=== PATIENT | male | born 1975 | race Caucasian/White ===

== ENCOUNTER 2017-08-18 11:40 | Emergency (ER) | payer OTHER, SELFPAY ==
[2017-08-18 11:41] VITALS: BP 136/79; PULSE 88; RESP 16; TEMP 36.1; O2SAT 97; BMI 38.4
--- NOTE | 2017-08-18 11:59 | ED.VISSUMM ---
- ER Visit Summary Date of Service: 08/18/17 Chief Complaint: Exposure to trichomonas History of Present Illness: The patient is a 42 M who presents with exposure to trichomonas. This happened about a week ago. He states he had dysuria at that time but now it is gone. He has no history of any STI's. He states he has had some mild penile drainage. No fevers. No pain Physical Examination: Vital signs reviewed. exam reveals no drainage. No pain. No abnormalities are seen Test Results: None indicated Emergency Department Course and Treatment: Patient will be treated with Rocephin, azithromycin, Flagyl and Zofran. We will follow-up as needed Treatment Plan: [] Disposition: Discharge Impression: Exposure to STI This note was generated with [employer] dictation software. It may contain incorrect words, spelling, and punctuation that were not noted in review of the chart prior to signing ED Disposition - Plan for ED Patient: Chief Complaint: Male Pain/Injury Referrals: Care Physician,No Primary [Primary Care Provider] -
--- NOTE | 2017-08-18 12:00 | ED.DEP ---
ED Disposition - Plan for ED Patient: Disposition: Home or Assisted Living Chief Complaint: Male Pain/Injury Instructions: ED STD Male Treated Referrals: Care Physician,No Primary [Primary Care Provider] -
[2017-08-18] MEDS: Ceftriaxone 500 MG Vial 250 MG IM (12:28)
[2017-08-18] MEDS: Azithromycin 250 MG Tablet 1000 MG PO (12:29)
[2017-08-18] MEDS: Ondansetron ODT 4 MG Tablet 8 MG PO (12:29)
[2017-08-18] MEDS: metroNIDAZOLE 500 MG Tablet 2000 MG PO (12:30)
[2017-08-18 12:52] VITALS: BP 158/97; PULSE 68; RESP 18; O2SAT 97
== END 2017-08-18 12:53 | disposition home or self-care (01) ==
LOC: ED 12:15
PROVIDERS: Emergency Provider Emergency Medicine
DX: Z20.2 Contact with and (suspected) exposure to infections with a predominantly sexual mode of transmission (principal)
CPT/HCPCS: 96372; 99283

== ENCOUNTER 2018-05-16 10:55 | Emergency (ER) | payer SELFPAY ==
[2018-05-16 10:56] VITALS: BP 150/97; PULSE 982; RESP 18; TEMP 37.8; O2SAT 96; BMI 34.8
[2018-05-16] MEDS: Ibuprofen 600 MG Tablet PO (11:36)
--- NOTE | 2018-05-16 11:52 | ED.DCSUM_ITS ---
- ER Visit Summary Date of Service: 05/16/18 Chief Complaint: [Fever] History of Present Illness: The patient is a 43 M [presents the emergency department complaint of a fever that started last evening. Patient states that while at work he started to feel hot. Patient states this morning again he was feeling hot and had a headache and cough as well as body aches but. Patient has a minimal sore throat. Cough is nonproductive. He denies any sick contacts. Patient did take some Tylenol last night but none since.] Physical Examination: [HEENT-PERRLA, EOMI. Cranial nerves II through XII grossly intact. TMs clear. Mucous membranes moist. No adenopathy. Cardiovascular-regular rate and rhythm without murmur or ectopy Lungs-clear to auscultation, chest wall stable without crepitus or subcu emphysema Abdomen-normoactive bowel sounds, soft, nontender, no rebound or rigidity, no peritoneal signs. Extremities-intact ?4, normal range of motion, normal pulses, atraumatic] Test Results: [Rapid influenza screen ordered and pending] Emergency Department Course and Treatment: [Patient left prior to treatment completion apparently told the nursing staff that he had somewhere to be and he left the department before treatment completion. Prior to leaving I did explain to to the patient that I felt likely had a viral upper respiratory infection however I did give him the option that if his influenza screen came back positive we would treat him with Tamiflu if he chose the have the treatment.] Treatment Plan: [Patient left prior to treatment completion] Disposition: [Left prior to treatment completion] Impression: [Viral URI] This note was generated with [employer] dictation software. It may contain incorrect words, spelling, and punctuation that were not noted in review of the chart prior to signing ED Disposition - Plan for ED Patient: Chief Complaint: Fever Referrals: Care Physician,No Primary [Primary Care Provider] -
== END 2018-05-16 12:13 | disposition home or self-care (01) ==
PROVIDERS: Emergency Provider Emergency Medicine
DX: J06.9 Acute upper respiratory infection, unspecified (principal)
CPT/HCPCS: 87804; 99283

== ENCOUNTER 2018-05-17 23:34 | Emergency (ER) | payer SELFPAY ==
[2018-05-17 23:35] VITALS: BP 145/84; PULSE 89; RESP 14; TEMP 36.9; O2SAT 98; BMI 36.2
--- NOTE | 2018-05-17 23:59 | ED.VISSUMM ---
- ER Visit Summary Date of Service: 05/17/18 Chief Complaint: Body aches, nausea, vomiting, diarrhea History of Present Illness: The patient is a 43 M with body aches, congestion, nausea, vomiting, diarrhea for the past 3-4 days. He had intermittent fevers. He was seen yesterday and influenza swab was negative. Today he has had increased vomiting is unable to keep even fluids down. Physical Examination: Vital signs are unremarkable. Patient is afebrile. Patient's lying in bed no acute distress. Heart is regular rate and rhythm. Lung sounds are clear. Abdomen is soft with focal tenderness in epigastrium. No guarding or rebound. Hypoactive but present bowel sounds are noted throughout all 4 quadrants. Skin examination was no rash or lesions. Test Results: CBC was a white count of 3.7 with 80% neutrophils. Hemoglobin is concentrated at 16.7. Platelet count is 122,000. Chemistry studies are unremarkable. LFTs significant for total bili of 1.2 and a direct bili 0.52. ALT is 67 and AST is 47. Lipase is normal. Emergency Department Course and Treatment: Patient was given IV fluids, Zofran, Toradol, and Bentyl. On repeat evaluation he feels significantly improved. He is tolerating p.o. He will be given a prescription for Zofran and Bentyl at home. Treatment Plan: [] Disposition: Discharge Impression: Viral gastroenteritis This note was generated with [employer] dictation software. It may contain incorrect words, spelling, and punctuation that were not noted in review of the chart prior to signing ED Disposition - Plan for ED Patient: Chief Complaint: General Illness Referrals: Care Physician,No Primary [Primary Care Provider] -
[2018-05-18] MEDS: 0.9% Normal Saline 1,000 ML 1000 ML IV (00:25)
[2018-05-18] MEDS: Ketorolac 30 MG/ML Syringe IV (00:26)
[2018-05-18] MEDS: Dicyclomine 20 MG/2 ML Vial IM (00:26)
[2018-05-18] MEDS: Ondansetron 4 MG/2 ML Vial IV (00:26)
[2018-05-18 00:35] LABS: Absolute Lymphocyte Count 0.42 X10^3/ul (0.83-4.51); Basophil# 0.01 X10^3/uL; Basophil% 0.3 % (0-1); Hematocrit 45.7 % (40-54); Hemoglobin 16.7 g/dl (13.0-16.5); Lymphocyte # 0.42 X10^3/ul (4.0); Lymphocyte % 11.4 % (19-41); Mean Corp Hgb Conc 36.5 g/gl (32-36); Mean Corpuscular Hgb 32.6 pg (27.0-32.0); Mean Corpuscular Volume 89.1 fL (80-94); Mean Platelet Vol. 9.1 fl (6.2-12.0); Monocyte# 0.29 X10^3/uL; Monocyte% 7.9 % (0-10); Neutrophil # 2.96 X10^3/uL (2.7-7.7); Neutrophil % 80.1 % (47-70); Platelet Count 122 K/mm3 (150-450); RBC Distribution Width CV 11.8 % (11.6-14.6); RBC Distribution Width SD 38.2 fl (35.1-43.9); Red Blood Count 5.13 M/mm3 (4.6-6.2); White Blood Count 3.7 K/mm3 (4.4-11.0)
[2018-05-18 00:36] LABS: Differential Indicated SCAN CRITERIA MET; POSITIVE COUNT NO; POSITIVE DIFFERENTIAL YES; POSITIVE MORPHOLOGY NO
[2018-05-18 00:44] LABS: AST(SGOT) 47 U/L (15-37); Alanine Aminotransfer ALT/SGPT 67 U/L (16-61); Albumin, Serum 3.4 g/dL (3.2-5.0); Alkaline Phosphatase 47 U/L (45-117); Anion Gap 6 (5-15); BUN 10 mg/dL (7-18); BUN/Creat Ratio 9.9 RATIO (10-20); Bilirubin, Direct 0.52 mg/dL (0.00-0.30); Calcium,Total 8.1 mg/dL (8.5-10.1); Chloride 102 mmol/L (98-107); Creatinine, Serum 1.01 mg/dL (0.70-1.30); EST Glomerular Filtration Rate 86 mL/min (>60); Est Glom Filt Rate - Afr Amer 104 mL/min (>60); Estimated Creatinine Clearance 100.44 ml/min; Globulin 3.7 g/dL (2.2-4.2); Glucose 99 mg/dL (74-106); Lipase 205 U/L (73-393); Potassium 3.8 mmol/L (3.5-5.1); Protein, Total 7.1 g/dL (6.4-8.2); Sodium Level 137 mmol/L (136-145)
--- NOTE | 2018-05-18 01:19 | ED.DEP ---
ED Disposition - Plan for ED Patient: Disposition: Home or Assisted Living Chief Complaint: General Illness Instructions: ED Gastroenteritis Viral Prescriptions: Ondansetron [Zofran Odt] 4 mg PO Q8H PRN PRN #10 tablet PRN Reason: Nausea Dicyclomine HCl [Bentyl] 20 mg PO TIDAC #20 capsule Referrals: González,Twyla, DO [NON-STAFF] - As Needed
[2018-05-18] MEDS: Ondansetron ODT 4 MG Tablet PO (01:41)
[2018-05-18 01:50] VITALS: BP 137/81; PULSE 71; RESP 16; O2SAT 94
== END 2018-05-18 01:52 | disposition home or self-care (01) ==
PROVIDERS: Emergency Provider Emergency Medicine
DX: A08.4 Viral intestinal infection, unspecified (principal); Z87.891 Personal history of nicotine dependence
CPT/HCPCS: 80048; 80076; 83690; 85025; 96361; 96372; 96374; 96375; 99284; J7030; J2405

== ENCOUNTER 2018-10-26 05:53 | Emergency (ER) | payer SELFPAY ==
[2018-07-18 11:50] VITALS: BMI 38.4
[2018-10-26 05:56] VITALS: BP 148/106; PULSE 70; RESP 16; TEMP 36.9; O2SAT 97; BMI 36.2
--- NOTE | 2018-10-26 06:12 | ED.VISSUMM ---
- ER Visit Summary Date of Service: 10/26/18 Chief Complaint: Cough History of Present Illness: The patient is a 43 M who presents with an influenza-like illness. He has been sick for 3 days. He complains of sore throat, muscle aches and joint aches, diarrhea, productive cough, chest congestion, sinus pressure. Did have diarrhea although this seems to be improving. No fevers. No vomiting. Physical Examination: Afebrile blood pressure 148/106 vitals otherwise normal No distress Nasal congestion noted Tympanic membranes are clear Oropharynx clear Moist mucous membranes Heart regular rate and rhythm Lungs are clear without rales rhonchi or wheezing Abdomen soft Test Results: Not indicated Emergency Department Course and Treatment: Patient presents with an influenza-like illness. Given that he has already been ill for 2-3 days, does not have any shortness of breath hypoxia or significant respiratory complications and is otherwise healthy Tamiflu is not indicated. Patient advised on supportive care. He understands to return for new or worsening symptoms. Patient discharged. Treatment Plan: [] Disposition: Discharge Impression: Influenza-like illness This note was generated with [employer] dictation software. It may contain incorrect words, spelling, and punctuation that were not noted in review of the chart prior to signing ED Disposition - Plan for ED Patient: Referrals: Care Physician,No Primary [Primary Care Provider] -
--- NOTE | 2018-10-26 06:14 | ED.DEP ---
ED Disposition - Plan for ED Patient: Instructions: ED Flu Referrals: Care Physician,No Primary [Primary Care Provider] -
--- NOTE | 2018-10-26 06:15 | ED.DCSUM_ITS ---
- ER Visit Summary Date of Service: 10/26/18 Chief Complaint: Cough History of Present Illness: The patient is a 43 M who presents with an influenza-like illness. He has been sick for 3 days. He complains of sore throat, muscle aches and joint aches, diarrhea, productive cough, chest congestion, sinus pressure. Did have diarrhea although this seems to be improving. No fevers. No vomiting. Physical Examination: Afebrile blood pressure 148/106 vitals otherwise normal No distress Nasal congestion noted Tympanic membranes are clear Oropharynx clear Moist mucous membranes Heart regular rate and rhythm Lungs are clear without rales rhonchi or wheezing Abdomen soft Test Results: Not indicated Emergency Department Course and Treatment: Patient presents with an influenza- like illness. Given that he has already been ill for 2-3 days, does not have any shortness of breath hypoxia or significant respiratory complications and is otherwise healthy Tamiflu is not indicated. Patient advised on supportive care. He understands to return for new or worsening symptoms. Patient discharged. Treatment Plan: [] Disposition: Discharge Impression: Influenza-like illness This note was generated with [employer] dictation software. It may contain incorrect words, spelling, and punctuation that were not noted in review of the chart prior to signing ED Disposition - Plan for ED Patient: Referrals: Care Physician,No Primary [Primary Care Provider] -
[2018-10-26 06:32] VITALS: RESP 16
== END 2018-10-26 06:36 | disposition home or self-care (01) ==
PROVIDERS: Emergency Provider Emergency Medicine
DX: J11.1 Influenza due to unidentified influenza virus with other respiratory manifestations (principal)
CPT/HCPCS: 99282

== ENCOUNTER 2018-11-14 14:08 | Emergency (ER) | payer OTHER, SELFPAY ==
[2018-11-14 14:09] VITALS: BP 159/106; PULSE 81; RESP 18; TEMP 36.2; O2SAT 97; BMI 37.6
--- NOTE | 2018-11-14 15:12 | ED.VISSUMM ---
- ER Visit Summary Date of Service: 11/14/18 Chief Complaint: Nausea, diarrhea, cough History of Present Illness: The patient is a 43 M who was seen approximately 2 weeks ago with flulike illness. Patient states he was feeling better for 3 or 4 days but his stepdaughter got ill and now patient and his are feeling worse again. He complains of intermittent fever, most recent yesterday. He reports cough that is worse at night and bringing up yellow sputum. He does not feel short of breath. He complains of diarrhea approximately 4 times a day. No blood in the stool. He has had nausea but no vomiting. Physical Examination: Blood pressure is 159/106, otherwise vitals are normal. Patient is sitting in the koenig chair. Head and neck examination reveals moist mucous membranes. Heart is regular rate and rhythm. Lung sounds are clear. Abdomen is soft with no focal tenderness. Active bowel sounds are noted. Test Results: [] Emergency Department Course and Treatment: Patient was given Zofran for nausea. Chest x-ray was initially ordered as the patient has had several weeks of this illness, but I was advised by radiology that he was declining the exam. When I discussed this with him he states he will does not think he needs a chest x-ray. We will treat him with naproxen and Zofran. If his symptoms persist he is to return for chest x-ray. He agrees with this plan. Treatment Plan: [] Disposition: Discharge Impression: Viral syndrome This note was generated with [employer] dictation software. It may contain incorrect words, spelling, and punctuation that were not noted in review of the chart prior to signing ED Disposition - Plan for ED Patient: Disposition: Home or Assisted Living Instructions: ED Viral Syndrome Prescriptions: Ondansetron [Zofran Odt] 4 mg PO Q8H PRN PRN #10 tablet PRN Reason: Nausea Naproxen [Naprosyn] 500 mg PO BID PRN PRN #20 tablet PRN Reason: Pain Referrals: Kathryn Dc MD [STAFF PHYSICIAN] - As Needed
[2018-11-14] MEDS: Ondansetron ODT 4 MG Tablet PO (15:46)
--- NOTE | 2018-11-14 16:16 | ED.RN ---
pt refusing cxr and dr. conde aware. awaiting dc papers with
== END 2018-11-14 16:17 | disposition home or self-care (01) ==
PROVIDERS: Emergency Provider Emergency Medicine
DX: B34.9 Viral infection, unspecified (principal); Z87.891 Personal history of nicotine dependence
CPT/HCPCS: 99281

== ENCOUNTER 2018-12-14 05:25 | Emergency (ER) | payer OTHER, SELFPAY ==
[2018-12-14 05:27] VITALS: BP 182/120; PULSE 75; RESP 18; TEMP 36.7; O2SAT 96; BMI 39.9
[2018-12-14 05:33] VITALS: RESP 18
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
--- NOTE | 2018-12-14 05:34 | ED.VISSUMM ---
- ER Visit Summary Date of Service: 12/14/18 Chief Complaint: Right thumb injury, rectal bleeding History of Present Illness: The patient is a 43 M presents to the emergency department 2 complaints. Patient states that yesterday, he was at work. He is right-hand dominant. He was putting in a garage door. It was rolling up, and he got his thumb pinched. Since then, he had a lot of pain. He is also been having some blood when he moved his bowels. He states is been going on for about 8 months. He states that today, he noticed a lot of bright red blood and states it was more than he is ever had. He denies any fevers or chills. He denies any weight loss. He states that his only been when he has been wiping, but today the blood without wiping. He has no history of inflammatory bowel disease. He has had prior appendectomy. Physical Examination: Vital signs reviewed General: Well-nourished, well-developed Head: Normocephalic, atraumatic Eyes: Pupils equal and reactive, extraocular muscles intact Neck, supple, no lymphadenopathy Heart: Regular rate and rhythm Respiratory: No distress, clear bilaterally Abdomen: Soft, nontender, nondistended, no peritoneal signs Rectal exam: Evidence of recently bleeding hemorrhoid at the 1 o'clock position. External hemorrhoid at the 4 o'clock position. No active blood. No masses. No evidence of abscess or fissure Back: Nontender Extremities: Small subungual hematoma less than 20% on right thumb, flexion extension preserved, no edema, no cords Skin: Normal color no rash Neuro: Alert and oriented, no focal or lateralizing deficits. Test Results: [] Emergency Department Course and Treatment: The patient's abdomen is soft and nontender. He has been having the symptoms for months. His rectal exam is consistent with bleeding hemorrhoids. There is no evidence of abscess or fistula. I did obtain a CBC given the patient's chronicity. This was unremarkable. He does have a small subungual hematoma on the left thumb, but it is less than 20%. I do not feel this needs drained. X-rays were obtained. There is no evidence of acute fracture. The patient will be given outpatient surgical follow-up for his hemorrhoids as needed. He was counseled on stool softeners and reasons to return. He will be discharged home. Treatment Plan: [] Disposition: Discharge Impression: 1. Rectal bleeding secondary to hemorrhoids 2. Right thumb contusion This note was generated with [employer] dictation software. It may contain incorrect words, spelling, and punctuation that were not noted in review of the chart prior to signing ED Disposition - Plan for ED Patient: Instructions: ED Crush Injury Finger No Fx, ED Hemorrhoids Referrals: Care Physician,No Primary [Primary Care Provider] -
[2018-12-14 06:16] LABS: Hematocrit 45.3 % (40-54); Hemoglobin 16.5 g/dl (13.0-16.5); Mean Corp Hgb Conc 36.4 g/gl (32-36); Mean Corpuscular Hgb 31.4 pg (27.0-32.0); Mean Corpuscular Volume 86.3 fL (80-94); Platelet Count 260 K/mm3 (150-450); RBC Distribution Width CV 12.5 % (11.6-14.6); RBC Distribution Width SD 39.3 fl (35.1-43.9); Red Blood Count 5.25 M/mm3 (4.6-6.2); White Blood Count 6.8 K/mm3 (4.4-11.0)
[2018-12-14 06:17] LABS: Scan Indicated on CBC? Y/N NO
[2018-12-14 06:26] VITALS: BP 135/86; RESP 18
== END 2018-12-14 06:27 | disposition home or self-care (01) ==
PROVIDERS: Emergency Provider Emergency Medicine
DX: K64.4 Residual hemorrhoidal skin tags (principal); K62.5 Hemorrhage of anus and rectum; S60.011A Contusion of right thumb without damage to nail, initial encounter; Z72.0 Tobacco use; W23.0XXA Caught, crushed, jammed, or pinched between moving objects, initial encounter; Y93.89 Activity, other specified; Y92.89 Other specified places as the place of occurrence of the external cause; Y99.0 Civilian activity done for income or pay
CPT/HCPCS: 36415; 73130; 85027; 99283

== ENCOUNTER 2019-04-18 08:54 | Emergency (ER) | payer SELFPAY ==
[2019-04-18 08:55] VITALS: BP 179/107; PULSE 86; RESP 18; TEMP 37.1; O2SAT 98; BMI 41.6
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
[2019-04-18] MEDS: Ondansetron 4 MG/2 ML Vial IV (09:27)
[2019-04-18] MEDS: Morphine 4 MG/ML Syringe IV (09:27)
[2019-04-18 09:30] LABS: Absolute Lymphocyte Count 1.74 X10^3/uL (0.83-4.51); Absolute Neutrophil Count 3.6 X10^3/uL (2.0-7.7); Basophil# 0.01 X10^3/uL; Basophil% 0.2 % (0-1); Eosinophil# 0.11 X10^3/uL; Eosinophils% 1.9 % (0-5); Hematocrit 44.6 % (40-54); Hemoglobin 16.1 g/dL (13.0-16.5); Lymphocyte # 1.74 X10^3/ul (4.0); Lymphocyte % 29.3 % (19-41); Mean Corp Hgb Conc 36.1 g/dL (32-36); Mean Corpuscular Hgb 31.3 pg (27.0-32.0); Mean Corpuscular Volume 86.6 fL (80-94); Mean Platelet Vol. 9.6 fl (6.2-12.0); Monocyte# 0.44 X10^3/uL; Monocyte% 7.4 % (0-10); NRBC Flagged by Analyzer 0 % (0-5); Neutrophil # 3.59 X10^3/uL (2.7-7.7); Neutrophil % 60.5 % (47-70); Platelet Count 251 K/mm3 (150-450); RBC Distribution Width CV 12.1 % (11.6-14.6); RBC Distribution Width SD 38.1 fl (35.1-43.9); Red Blood Count 5.15 M/mm3 (4.6-6.2); White Blood Count 5.9 K/mm3 (4.4-11.0)
[2019-04-18 09:35] LABS: International Normalized Ratio 1.1; Partial Thromboplast Time 28.6 Seconds (24.1-36.2); Prothrombin Time (Protime)PT. 14.3 SECONDS (11.7-14.9)
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
--- NOTE | 2019-04-18 09:46 | ED.RN ---
PT REFUSED CATHETER. DR KABA AWARE
[2019-04-18 09:48] LABS: AST(SGOT) 44 U/L (15-37); Alanine Aminotransfer ALT/SGPT 62 U/L (16-61); Albumin, Serum 3.8 g/dL (3.2-5.0); Alcohol, Blood (Medical)-Serum < 3.0 mg/dL; Alkaline Phosphatase 48 U/L (45-117); Anion Gap 4 (5-15); BUN 11 mg/dL (7-18); BUN/Creat Ratio 10.7 RATIO (10-20); Bilirubin, Direct 0.16 mg/dL (0.00-0.30); Calcium,Total 8.7 mg/dL (8.5-10.1); Chloride 109 mmol/L (98-107); Creatinine, Serum 1.03 mg/dL (0.70-1.30); EST Glomerular Filtration Rate 83 mL/min (>60); Est Glom Filt Rate - Afr Amer 101 mL/min (>60); Estimated Creatinine Clearance 92.47 ml/min; Globulin 3.7 g/dL (2.2-4.2); Glucose 119 mg/dL (74-106); Lipase 105 U/L (73-393); Potassium 3.5 mmol/L (3.5-5.1); Protein, Total 7.5 g/dL (6.4-8.2); Sodium Level 141 mmol/L (136-145)
[2019-04-18 10:12] VITALS: BP 143/99; PULSE 82; RESP 18; O2SAT 98
[2019-04-18 10:49] LABS: Amphetamine Urine VISTA NEGATIVE (<1000 ng/mL); Barbiturate Urine VISTA NEGATIVE (< 200 ng/mL); Benzodiazepine Urine VISTA NEGATIVE (< 200 ng/mL); Cocaine Urine VISTA NEGATIVE (< 300 ng/mL); Ecstacy Urine VISTA NEGATIVE (< 500 ng/mL); Methadone Urine VISTA NEGATIVE (< 300 ng/mL); PCP Urine VISTA NEGATIVE (< 25 ng/mL); THC Urine VISTA POSITIVE (< 50 ng/mL); Vista UDS pH Range 6
[2019-04-18 12:28] VITALS: BP 148/91; PULSE 81; RESP 16; O2SAT 99
== END 2019-04-18 12:29 | disposition short-term general hospital (02) ==
PROVIDERS: Emergency Provider Emergency Medicine
DX: S06.9X1A Unspecified intracranial injury with loss of consciousness of 30 minutes or less, initial encounter (principal); S01.81XA Laceration without foreign body of other part of head, initial encounter; R40.2410 Glasgow coma scale score 13-15, unspecified time; S13.9XXA Sprain of joints and ligaments of unspecified parts of neck, initial encounter; S30.1XXA Contusion of abdominal wall, initial encounter; S80.11XA Contusion of right lower leg, initial encounter; V43.54XA Car driver injured in collision with van in traffic accident, initial encounter; Y93.I9 Activity, other involving external motion; Y92.410 Unspecified street and highway as the place of occurrence of the external cause; Y99.8 Other external cause status
CPT/HCPCS: 70450; 71045; 72125; 73590; 74177; 80048; 80076; 80307; 80320; 83690; 85025; 85610; 85730; 93005; 96374; 96375; 99285; Q9967; A4216; G0480; J2405

== ENCOUNTER 2019-04-21 12:22 | Emergency (ER) | payer SELFPAY ==
[2019-04-21 12:23] VITALS: BP 145/92; PULSE 86; RESP 18; TEMP 36.6; O2SAT 96; BMI 39.1
[2019-04-21 13:04] VITALS: BP 135/90; PULSE 90; RESP 14; O2SAT 98
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
--- NOTE | 2019-04-21 14:01 | RAD_ITS ---
STUDY: X-RAY - LEFT HAND REASON FOR EXAM: Male, 43 years old. TECHNIQUE: 4 view(s) of the hand. COMPARISON: None. FINDINGS: Normal radiocarpal articulation. Normal distal radioulnar joint. Normal visualized carpal bones. Normal carpal articulations Normal carpometacarpal articulation of the thumb. Normal second through fifth carpometacarpal joints. Normal metacarpi. Normal metacarpophalangeal joint of the thumb. Normal interphalangeal joint of the thumb. Normal proximal and distal phalanges of the thumb. Normal metacarpophalangeal joints of the second through fifth fingers. Normal proximal and distal interphalangeal joints of the second through fifth fingers. Normal phalanges of the second through fifth fingers. The soft tissue structures are unremarkable. RAD/Hand Min 3 Views IMPRESSION: Normal x-ray examination of the hand. Electronically Signed: Randy Mahan, at 15:20 EDT Tel , Service support ,
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
[2019-04-21 15:48] VITALS: BP 146/104; PULSE 67; RESP 18; O2SAT 99
== END 2019-04-21 16:05 | disposition home or self-care (01) ==
PROVIDERS: Emergency Provider Emergency Medicine
DX: S06.0X9D Concussion with loss of consciousness of unspecified duration, subsequent encounter (principal); S60.222D Contusion of left hand, subsequent encounter; S29.012D Strain of muscle and tendon of back wall of thorax, subsequent encounter; V89.2XXD Person injured in unspecified motor-vehicle accident, traffic, subsequent encounter
CPT/HCPCS: 71046; 73130; 99282

== ENCOUNTER 2019-09-04 15:10 | Emergency (ER) | payer OTHER, SELFPAY ==
[2019-09-04 15:11] VITALS: BP 157/106; PULSE 89; RESP 16; TEMP 36.6; O2SAT 95; BMI 39.9
[2019-09-04 16:56] VITALS: BP 136/102; PULSE 68; RESP 18; TEMP 37; O2SAT 98
--- NOTE | 2019-09-04 17:36 | ED.VISSUMM ---
- ER Visit Summary Date of Service: 09/04/19 Chief Complaint: Flulike symptoms History of Present Illness: The patient is a 44 M who presents with flulike symptoms that began yesterday. Patient states that his daughter was recently diagnosed with influenza. Patient states he has had been having some subjective fevers. Patient states he feels fatigued and has no energy. Patient states he has been feeling off balance as well. Patient admits to some rhinorrhea and a sore throat. Patient also admits to a mild headache. Denies any nausea or vomiting but admits to some diarrhea. Physical Examination: Vital signs are stable except for a mildly elevated blood pressure 157/106. Patient is afebrile. Patient is in no acute distress. Oral mucosa is pink and moist. Neck is supple. Trachea is midline. There is no JVD noted. Heart was regular rate and rhythm. Lungs are clear and equal bilaterally. Abdomen is soft. Bowel sounds are normal. There is no tenderness. There is no rebound or guarding noted. Skin is warm dry. Cranial nerves II through XII are intact. There are no focal motor or sensory deficits noted. Extremities are intact. There is no calf tenderness or edema. Test Results: Rapid flu was obtained and was negative. Emergency Department Course and Treatment: Patient was advised that his flu swab was negative. Patient was advised that this may be some other viral illness. Patient was instructed to drink plenty of fluids. Patient was instructed to continue Tylenol or ibuprofen as needed for pain or fevers. Patient was instructed to follow-up with his primary care physician in 5 to 7 days. Patient understood and was agreeable with the plan. All questions were answered. Disposition: Discharge home Impression: Viral syndrome This note was generated with [employer] dictation software. It may contain incorrect words, spelling, and punctuation that were not noted in review of the chart prior to signing ED Disposition - Plan for ED Patient: Disposition: Home or Assisted Living Diagnosis: Viral syndrome Instructions: VIRAL SYNDROME (Adult) Referrals: Care Physician,No Primary [Primary Care Provider] - Fast,Twyla, DO [NON-STAFF] - 5-7 Days
== END 2019-09-04 18:03 | disposition home or self-care (01) ==
PROVIDERS: Emergency Provider Emergency Medicine
DX: B34.9 Viral infection, unspecified (principal)
CPT/HCPCS: 87804; 99282

== ENCOUNTER 2021-04-17 09:06 | Emergency (ER) | payer BC, SELFPAY ==
[2021-04-17 09:07] VITALS: BP 137/96; PULSE 68; RESP 16; TEMP 36.6; O2SAT 93; BMI 36.9
--- NOTE | 2021-04-17 09:28 | RAD_ITS ---
STUDY: X-RAY CHEST REASON FOR EXAM: Male, 45 years old. pain TECHNIQUE: PA and lateral views of the chest. COMPARISON: 04/21/2019 FINDINGS: The lungs are clear and expanded. There is no demonstrated pleural abnormality. Normal size heart. Normal mediastinum and brittany. Normal visualized pulmonary arteries. Normal visualized aortic arch and descending thoracic aorta. Normal visualized thoracic spine. Normal visualized ribs, clavicles, and shoulders. There is no demonstrated abnormality of the visualized soft tissue structures of the upper abdomen. RAD/Chest PA and Lateral IMPRESSION: Normal x-ray examination of the chest. Electronically Signed: Nicko Burciaga MD at 10:40 EDT Tel , Service support ,
--- NOTE | 2021-04-17 09:28 | EKG12_ITS ---
Test Reason : ABOMINAL PAIN Blood Pressure : / mmHG Vent. Rate : 065 BPM Atrial Rate : 065 BPM P-R Int : 234 ms QRS Dur : 092 ms QT Int : 398 ms P-R-T Axes : 049 051 050 degrees QTc Int : 413 ms Sinus rhythm with 1st degree A-V block Otherwise normal ECG Confirmed by JAVIER MILLER, ELVA ([id number]), business editor GLORY LEUNG ([id number]) on 04/21/2021 12:16:39 PM Referred By: DADY Confirmed By:ETHEL HERRERA MD
--- NOTE | 2021-04-17 09:30 | EX.ED.DYSGE1 ---
HPI History of Present Illness Chief Complaint: Abd Pain Detail of Chief Complaint: Gastric left upper quadrant pain today, chest pain yesterday Informant: patient Onset/Context/Timing Onset: Today and Yesterday Context: Sudden Onset Timing: Continuous and Waxes and wanes Quality: Twisting squeezing epigastric left upper quadrant pain Location: Yesterday mid to left anterior chest discomfort while working out Current Severity: Severe Maximum Severity: Severe Worsened by: Nothing Relieved by: Nothing Associated Symptoms Associated Symptoms: Diaphoresis and nausea Narrative Narrative: Patient is a healthy 45-year-old male who presents because of waxing and waning severe epigastric left upper quadrant pain that started this morning. He describes as a twisting sharp discomfort. He reports diaphoresis. He states it comes in waves and is intense when it severe. States he takes his breath away. He denies history of VTE. He has no risk factors for VTE. He denies leg pain, swelling discoloration. Yesterday while working out he developed chest discomfort with no other symptoms. There was no radiation. Today there is no radiation of the discomfort. He denies history of hiatal hernia, reflux or peptic ulcer disease. He denies black or maroon-colored stool. He states there is a family history cholelithiasis. He does have slight intolerance to greasy and fried foods. Prior similar symptoms: No Recent Illness/Hospitalization: No PFSH PFSH Home Medications NK 04/18/19 [History Last Taken Unknown] Allergy/AdvReac Type Severity Reaction Status Date / Time shellfish derived Allergy Anaphylaxis Verified 04/17/21 09:10 Surgical History no surgical history no surgical history Social History (Updated 04/17/21 @ 09:[address] Syed Brewer MD) household members: spouse and children Smoking Status: Never smoker alcohol intake: never substance use type: does not use ROS ROS ED Constitutional Constitutional ED: Denies chills, fever(s), subjective, sweats or weight loss Eyes Eyes: Denies blurry vision or change in vision ENT ENT ED: Denies ear pain, rhinorrhea or sore throat Cardiovascular Cardiovascular: Denies chest pain Respiratory/Chest Respiratory/Chest: Denies cough, dyspnea, dyspnea on exertion or sputum Gastrointestinal Gastrointestinal: Reports abdominal pain and nausea; Denies constipation, diarrhea or vomiting Genitourinary Genitourinary ED: Denies dysuria, hematuria or urinary frequency Musculoskeletal Musculoskeletal: Denies arthralgias, myalgias or neck pain Integumentary Denies rash Neurologic Neurologic: Denies headache(s), paresthesias or weakness Endocrine Endocrinology: Denies polydipsia, polyphagia or polyuria EXAM Physical Exam Const Vital Signs: 04/17/21 09:07 Temperature 97.8 F Temperature Source Temporal Pulse Rate 68 Respiratory Rate 16 Blood Pressure 137/96 H Blood Pressure Mean 109 Pulse Ox 93 Oxygen Delivery Method Room Air Positive well nourished and well developed; Negative for obese, cachectic or contractures General Appearance ED: well developed and diaphoretic; Negative for cachectic, contractures, cyanotic or NAD Nutritional Appearance: Negative for cachectic or obese HEENT Reports TM's clear and moist mucous membranes Negative for trauma or tenderness Tympanic Membrane ED: Yes TM's clear Eyes PERRL and EOMs intact bilaterally General Eye ED: Negative for pale conjunctiva or scleral icterus Neck no lymphadenopathy, supple and no JVD Chest Wall inspection of chest normal and palpation of chest normal Resp normal respiratory effort and clear to auscultation bilaterally Effort and Inspection: Negative for pain with movement Cardio regular rate, regular rhythm, S1 normal heart sound, S2 normal heart sound and no murmurs GI normal to inspection, nondistended, normoactive bowel sounds and non-distended; Negative for non-tender Palpation: soft and tender epigastric and LUQ Back/Spine no CVA tenderness Cervical Spine: Negative for cervical spine tenderness Thoracic Spine / Upper Back: Negative for thoracic spinal tenderness or paraspinal muscle tenderness Extremity normal to inspection Extremity Narrative: There is no asymmetry, swelling, discoloration, leg vein distention, palpable cords or tenderness along the distribution of the deep venous system. General Extremety ED: Negative for edema or tenderness General Extremity: Negative for edema Neuro oriented x3, CN's II-XII intact bilaterally and no sensory deficits noted Sensorium / Orientation: alert Motor Exam: strength 5/5 throughout Psych mental status grossly normal Skin no rashes or lesions noted and no wounds MDM MDM MDM Narrative Medical decision making narrative: With history of chest pain while working out and lasting several hours will obtain EKG and troponin to assess for cardiac etiology. This may represent esophageal spasm or reflux. Also need to entertain possibility of pancreatitis since he has pain in the left upper quadrant. Patient was medicated with GI cocktail since he describes a twisting burning sensation. Patient states the GI cocktail alleviated his symptoms. He was told this may represent GERD versus esophageal spasm. He was informed of his elevated blood sugar need to follow-up with his doctor. Lab Data Attestation: I reviewed the patient's lab results. Lab results narrative: Laboratory work-up is remarkable for a glucose of 142. High-sensitivity troponin was normal. Labs: Laboratory Results - last 24 hr 04/17/21 04/17/21 09:45 09:45 WBC 5.8 RBC 4.95 Hgb 15.8 Hct 43.1 MCV 87.1 MCH 31.9 MCHC 36.7 H RDW Std Deviation 38.8 RDW Coeff of Ayleen 12.2 Plt Count 263 MPV 8.9 Immature Gran % (Auto) 0.200 Neut % (Auto) 67.8 Lymph % (Auto) 23.8 [place] % (Auto) 6.2 Eos % (Auto) 1.7 Baso % (Auto) 0.3 Absolute Neuts (auto) 4.0 Absolute Lymphs (auto) 1.39 Nucleated RBC % 0 Sodium 139 Potassium 3.9 Chloride 106 Carbon Dioxide 27.0 Anion Gap 6 BUN 13 Creatinine 1.13 Estim Creat Clear Calc 82.55 Est GFR (MDRD) Af Amer 90 Est GFR (MDRD) Non-Af 74 BUN/Creatinine Ratio 11.5 Glucose 142 H Calcium 8.9 Total Bilirubin 0.60 AST 15 ALT 23 Alkaline Phosphatase 51 Troponin I High Sens 9 Total Protein 7.1 Albumin 3.4 Globulin 3.7 Albumin/Globulin Ratio 0.9 Lipase 111 Radiography Chest X-Ray - ED: Read by ED Physician (X-ray was interpreted by me. Reviewed radiology report. [id number]), Normal, Heart, Lungs, Mediastinum and Bony Structures Diagnostic Testing: Clinical Impression(s) from Imaging Studies Chest X-Ray 04/17/21 09:28 IMPRESSION: Normal x-ray examination of the chest. Electronically Signed: Nicko Burciaga MD at 10:40 EDT Tel , Service support , Discharge Plan Triage Chief Complaint: Abd Pain ED Provider: Syed Brewer Dx/Rx/DC Orders Clinical Impression: Acute epigastric pain, Acute hyperglycemia Instructions: ED Epigastric Pain Uncertain Cause, ED Hyperglycemia New Susp Diabetes Prescriptions: No Action NK RF: 0 Primary Care Provider: Yusuf Chavez Referrals: Yusuf Chavez MD [Primary Care Provider] - 3-5 Days (Patient with elevated blood sugar. The family history of diabetes. Will need blood sugar reassessed.) Disposition Disposition: Home, Self Care
[2021-04-17] MEDS: Mag Hydrox/Al Hydrox/Simeth 30 ML UDC PO (09:46)
[2021-04-17 09:54] LABS: Absolute Lymphocyte Count 1.39 X10^3/uL (0.83-4.51); Basophil# 0.02 X10^3/uL; Basophil% 0.3 % (0-1); Eosinophils% 1.7 % (0-5); Hematocrit 43.1 % (40-54); Hemoglobin 15.8 g/dL (13.0-16.5); Lymphocyte # 1.39 X10^3/ul (0.83-4.51); Lymphocyte % 23.8 % (19-41); Mean Corp Hgb Conc 36.7 g/dL (32-36); Mean Corpuscular Hgb 31.9 pg (27.0-32.0); Mean Corpuscular Volume 87.1 fL (80-94); Mean Platelet Vol. 8.9 fl (6.2-12.0); Monocyte# 0.36 X10^3/uL; Monocyte% 6.2 % (0-10); NRBC Flagged by Analyzer 0 % (0-5); Neutrophil # 3.96 X10^3/uL (2.7-7.7); Neutrophil % 67.8 % (47-70); Platelet Count 263 K/mm3 (150-450); RBC Distribution Width CV 12.2 % (11.6-14.6); RBC Distribution Width SD 38.8 fl (35.1-43.9); Red Blood Count 4.95 M/mm3 (4.6-6.2); White Blood Count 5.8 K/mm3 (4.4-11.0)
[2021-04-17 10:13] LABS: ALB/GLOB Ratio 0.9 RATIO (0.9-2.4); AST(SGOT) 15 U/L (15-37); Alanine Aminotransfer ALT/SGPT 23 U/L (16-61); Albumin, Serum 3.4 g/dL (3.2-5.0); Alkaline Phosphatase 51 U/L (45-117); Anion Gap 6 (5-15); BUN 13 mg/dL (7-18); BUN/Creat Ratio 11.5 RATIO (10-20); Calcium,Total 8.9 mg/dL (8.5-10.1); Chloride 106 mmol/L (98-107); Creatinine, Serum 1.13 mg/dL (0.70-1.30); EST Glomerular Filtration Rate 74 mL/min (>60); Est Glom Filt Rate - Afr Amer 90 mL/min (>60); Estimated Creatinine Clearance 82.55 ml/min; Globulin 3.7 g/dL (2.2-4.2); Glucose 142 mg/dL (74-106); Lipase 111 U/L (73-393); Potassium 3.9 mmol/L (3.5-5.1); Protein, Total 7.1 g/dL (6.4-8.2); Sodium Level 139 mmol/L (136-145); Troponin-I HS 9 pg/mL (3.0-78.0)
[2021-04-17 11:40] VITALS: BP 142/69; PULSE 79; RESP 16; O2SAT 98
== END 2021-04-17 11:41 | disposition home or self-care (01) ==
PROVIDERS: Emergency Provider Emergency Medicine; PCP Family Medicine
DX: R10.13 Epigastric pain (principal); R73.9 Hyperglycemia, unspecified
CPT/HCPCS: 71046; 80053; 83690; 84484; 85025; 93005; 99285; A4216

== ENCOUNTER 2021-09-04 07:26 | Emergency (ER) | payer OTHER, SELFPAY ==
[2021-09-04 07:27] VITALS: BP 137/99; PULSE 77; RESP 18; TEMP 36.6; O2SAT 98; BMI 36.9
--- NOTE | 2021-09-04 07:49 | ED.VIS.BACK ---
HPI History of Present Illness Chief Complaint: Back Onset/Context/Timing Worsened by: improves with Movement Narrative Narrative: Patient presents with thoracic back pain on the left, and left-sided neck pain that began yesterday evening. He states that at work he was shoveling breast fillings and toe box. 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 He presents mainly with pain by his left shoulder blade. He denies any chest pain, nausea, vomiting, diaphoresis, shortness of breath, or other symptoms. He took Tylenol PM without relief of his symptoms. His boss at work suggested that he come to the ED for evaluation. As he possibly may have injured himself while working out, he does not want to claim Workmen's Compensation for this. [facility] Medical History no medical history Home Medications cyclobenzaprine 10 mg PO BID PRN #10 tab 09/04/21 [Rx Last Taken Unknown] naproxen [Naprosyn] 500 mg PO BID PRN #20 tab 09/04/21 [Rx Last Taken Unknown] Allergy/AdvReac Type Severity Reaction Status Date / Time shellfish derived Allergy Anaphylaxis Verified 09/04/21 07:47 Surgical History no surgical history Social History household members: spouse and children Smoking Status: Never smoker alcohol intake: never substance use type: does not use ROS ROS ED ROS Narrative Constitutional: No fever, no chills. HEENT: No sore throat. No neck pain. No loss of vision. No rhinorrhea. Cardiovascular: No chest pain. No palpitations. No pedal edema. Respiratory: No cough, no shortness of breath. Abdominal: No abdominal pain. No nausea. No vomiting. Genitourinary: No dysuria. No hematuria. Musculoskeletal: No myalgias. No arthralgias. Thoracic back pain in between spine and shoulder blade. Rating upward towards neck. Neurologic: No headaches. No dizziness. No lightheadedness. No loss of bowel or bladder. No radiation to arm. Skin: No rash. No change in color. Psychiatric: No depression. No anxiety. EXAM Physical Exam Narrative Exam Narrative: Afebrile. Vital signs noted. HEENT: Normocephalic. Atraumatic. PERRL, EOMI. Neck soft and supple. No point tenderness or step off. Full range of motion of neck without pain. Cardiovascular: Regular rate and rhythm. No murmurs, rubs, or gallops appreciated. Respiratory: No tachypnea. Lungs clear to auscultation bilaterally. Gastrointestinal: Abdomen soft, nontender, with normoactive bowel sounds. No rebound or guarding. Neurological: Awake. Alert. Nonfocal, nonlateralizing. Skin: No rash. Normal color. No pallor. Musculoskeletal: No pedal edema. Full range of motion extremities. Mild tenderness to palpation left rhomboid area. Reproducible pain. No vertebral point tenderness or bony step-off. Mild tenderness to palpation left paraspinal musculature of cervical area. Once again no vertebral point tenderness or bony step-off. Const Vital Signs: 09/04/21 07:27 Temperature 97.9 F Temperature Source Temporal Pulse Rate 77 Respiratory Rate 18 Blood Pressure 137/99 H Blood Pressure Mean 111 Pulse Ox 98 Oxygen Delivery Method Room Air MDM MDM MDM Narrative Medical decision making narrative: I do not feel x-rays are indicated. Furthermore, patient declines when discussing this with him. I do feel that it may be more of an overuse cervical strain and rhomboid strain/thoracic strain. He will apply ice to the affected areas. He states he has been to a chiropractor previously this is not helped him. I will write him prescriptions for Flexeril and for naproxen to take as needed. He will follow up with his primary care physician. He was given a note to have light duty today and tomorrow. I feel he can be discharged safely home with follow-up. Return instructions to the emergency department were reviewed. Disposition is discharged home in stable condition. Discharge Plan Triage Chief Complaint: Back ED Provider: Meek Ridley Dx/Rx/DC Orders Clinical Impression: Strain of thoracic back region, Rhomboid muscle strain, Cervical strain Instructions: ED Back and Neck Pain, General, ED Neck Sprain or Strain, ED Thoracic Spine Strain Prescriptions: New naproxen [Naprosyn] 500 mg tablet 500 mg PO BID PRN (Reason: pain) Qty: 20 RF: 0 cyclobenzaprine 10 mg tablet 10 mg PO BID PRN (Reason: muscle spasm) Qty: 10 RF: 0 Stand Alone Forms: ED Work / School Excuse Primary Care Provider: Yusuf Chavez Referrals: Yusuf Chavez MD [Primary Care Provider] - 10-14 Days if not better Disposition Disposition: Home, Self Care Discharge Date/Time: 09/04/21 07:57
== END 2021-09-04 07:57 | disposition home or self-care (01) ==
LOC: ED 07:56
PROVIDERS: Emergency Provider Emergency Medicine; PCP Family Medicine; Visit Provider Emergency Medicine
DX: S16.1XXA Strain of muscle, fascia and tendon at neck level, initial encounter (principal); S29.019A Strain of muscle and tendon of unspecified wall of thorax, initial encounter; T73.3XXA Exhaustion due to excessive exertion, initial encounter
CPT/HCPCS: 99282

== ENCOUNTER 2021-09-17 11:46 | Emergency (ER) | payer OTHER, SELFPAY ==
[2021-09-17 11:47] VITALS: BP 137/90; PULSE 87; RESP 16; TEMP 35.8; O2SAT 98; BMI 36.1
--- NOTE | 2021-09-17 13:25 | ED.VIS.LOWEX ---
HPI History of Present Illness Chief Complaint: Lower Extremity Injury Informant: patient Narrative Narrative: Patient is presenting with right thigh pain. Patient slipped on the steps yesterday when they were wet and had his walkie-talkie on his belt buckle. When he landed on his right side the walkie-talkie went into the leg. He comes me as pain. Patient was unable to work this morning because he is still limping. He states he is feeling better now but was told he needed to come to the ER to be evaluated get a work note. He denies any other complaints at this time. No associated numbness or tingling. No head injury associated with the fall. PFSH PFSH Medical History no medical history Home Medications cyclobenzaprine 10 mg PO BID PRN #10 tab 09/04/21 [Rx Last Taken Unknown] naproxen [Naprosyn] 500 mg PO BID PRN #20 tab 09/04/21 [Rx Last Taken Unknown] Allergy/AdvReac Type Severity Reaction Status Date / Time shellfish derived Allergy Anaphylaxis Verified 09/04/21 07:47 Surgical History History of appendectomy Social History household members: spouse and children Smoking Status: Never smoker alcohol intake: never substance use type: does not use ROS ROS ED Constitutional Constitutional ED: Denies chills or fever(s) Eyes Eyes: Denies change in vision Cardiovascular Cardiovascular: Denies chest pain Respiratory/Chest Respiratory/Chest: Denies cough or dyspnea Gastrointestinal Gastrointestinal: Denies abdominal pain Musculoskeletal Musculoskeletal: Reports myalgias and other Details: Right thigh Integumentary Denies Abrasions or rash Neurologic Neurologic: Denies headache(s), paresthesias or weakness EXAM Physical Exam Const Vital Signs: 09/17/21 11:47 Temperature 96.5 F L Temperature Source Temporal Pulse Rate 87 Respiratory Rate 16 Blood Pressure 137/90 H Blood Pressure Mean 105 Pulse Ox 98 Oxygen Delivery Method Room Air Positive well nourished and well developed General Appearance ED: well developed and NAD HEENT normocephalic and atraumatic Eyes PERRL Neck full ROM and supple Chest Wall inspection of chest normal Resp normal respiratory effort Cardio regular rate and regular rhythm Cardio Narrative: 2+ bilateral DP pulses Extremity full ROM Extremity Narrative: Patient has approximately 4 cm area of swelling of the mid and slightly lateral quadricep muscles consistent with a contusion. There is associated tenderness to palpation. The compartments otherwise are soft. He is able to raise his leg directly off the bed without any difficulty. No bony tenderness or deformity appreciated. General Extremety ED: Negative for edema General Extremity: Negative for edema Neuro oriented x3, moves all extremities and no sensory deficits noted Sensorium / Orientation: alert Psych mental status grossly normal Skin no wounds Lesions: no lesions Rashes: no rashes MDM MDM MDM Narrative Medical decision making narrative: Patient evaluated for contusion to his left thigh. He really just needs a work note which is why he is in the emergency room. He appears nontoxic in no acute distress. His neurovascularly intact. Do not suspect compartment syndrome. He does have contusion likely hematoma in his quadricep muscle. Is given an Rich wrap for pressure. Counseled on rice therapy. Counseled on return precautions. Given a work note per his request. Discharge Plan Triage Chief Complaint: Lower Extremity Injury ED Provider: Karrie Rangel Dx/Rx/DC Orders Clinical Impression: Contusion of right thigh, initial encounter Instructions: ED Contusion, Lower Extremity Prescriptions: No Action naproxen [Naprosyn] 500 mg tablet 500 mg PO BID PRN (Reason: pain) Qty: 20 RF: 0 cyclobenzaprine 10 mg tablet 10 mg PO BID PRN (Reason: muscle spasm) Qty: 10 RF: 0 Primary Care Provider: Yusuf Chavez Referrals: Yusuf Chavez MD [Primary Care Provider] - Disposition Disposition: Home, Self Care
== END 2021-09-17 13:54 | disposition home or self-care (01) ==
LOC: ED 13:36
PROVIDERS: Emergency Provider Emergency Medicine; PCP Family Medicine; Visit Provider Emergency Medicine
DX: S70.11XA Contusion of right thigh, initial encounter (principal); W01.119A Fall on same level from slipping, tripping and stumbling with subsequent striking against unspecified sharp object, initial encounter; Y99.0 Civilian activity done for income or pay
CPT/HCPCS: 99282

== ENCOUNTER 2022-01-19 20:38 | Emergency (ER) | payer SELFPAY ==
[2022-01-19 20:39] VITALS: BP 158/75; PULSE 81; RESP 15; TEMP 36.8; O2SAT 96; BMI 35.4
[2022-01-19] MEDS: Lidocaine 1% /Epi 1:100 (20ml) 20 ML Vial INFILT (21:03)
--- NOTE | 2022-01-19 21:50 | EX.ED.GENINJ ---
HPI History of Present Illness Chief Complaint: Head Injury Narrative Narrative: 46-year-old male presenting with scalp laceration. He states he was helped moving a washer down some stairs and his friend who was in the front of the washer was going too fast and he was pulled forward. He states he struck his head on either a weight bench at the bottom of the dryer. Laceration on the top of the scalp which was bleeding initially. He had a flap which he pushed down and he applied pressure. Last tetanus 2 years ago. Patient states he has no nausea, vomiting, dizziness, lightheadedness. No neck pain. He is not on blood thinners. PFSH PFSH Home Medications NK 01/19/22 [History Last Taken Unknown] Allergy/AdvReac Type Severity Reaction Status Date / Time shellfish derived Allergy Anaphylaxis Verified 01/19/22 20:43 Surgical History History of appendectomy Social History household members: spouse and children Smoking Status: Never smoker alcohol intake: never substance use type: does not use ROS ROS ED Constitutional Constitutional ED: Denies chills, fever(s) or sweats Eyes Eyes: Denies blurry vision or change in vision ENT ENT ED: Denies ear pain or sore throat Cardiovascular Cardiovascular: Denies chest pain, palpitations or racing heartbeat Respiratory/Chest Respiratory/Chest: Denies cough, dyspnea or sputum Gastrointestinal Gastrointestinal: Denies abdominal pain, constipation, diarrhea, nausea or vomiting Genitourinary Genitourinary ED: Denies dysuria, hematuria or urinary frequency Musculoskeletal Musculoskeletal: Denies arthralgias, myalgias or neck pain Integumentary Reports other Details: Scalp laceration ; Denies abscess Neurologic Neurologic: Denies headache(s), paresthesias or weakness Psychiatric Psychiatric: Denies anxiety, depression, suicidal ideation or suicidal thoughts Endocrine Endocrinology: Denies polydipsia or polyuria EXAM Physical Exam Const Vital Signs: 01/19/22 20:39 01/19/22 20:44 Temperature 98.2 F Temperature Source Temporal Pulse Rate 81 Respiratory Rate 15 Respiratory Effort Normal Blood Pressure 158/75 H Blood Pressure Mean 102 Pulse Ox 96 Oxygen Delivery Method Room Air Positive well nourished General Appearance ED: NAD HEENT Reports TM's clear Tympanic Membrane ED: Yes TM's clear Eyes PERRL and EOMs intact bilaterally Chest Wall inspection of chest normal and palpation of chest normal Resp normal respiratory effort and clear to auscultation bilaterally Extremity normal to inspection and full ROM Neuro oriented x3, CN's II-XII intact bilaterally, moves all extremities, no focal motor deficits, no sensory deficits noted and gait normal Sensorium / Orientation: alert Motor Exam: strength 5/5 throughout Psych mental status grossly normal Skin Skin Narrative: 3 cm mostly circular skin flap on the left side of the scalp with no active bleeding. There is a large avulsed piece at posterior aspect of approximately 1 cm and is triangular in shape. No active bleeding. No skull deformity. Wound is mostly well approximated. MDM MDM MDM Narrative Medical decision making narrative: Scalp laceration is well approximated with exception of the avulsed piece in the posterior aspect. Patient does not have any neurodeficits and refuses a CT scan. Wound was irrigated by nursing. I ordered lidocaine with epi and I was going to place some tila to secure this however the patient dressed his own scalp and taped into his head and states that he does not want any sutures or tila. He states that he will manage it. We will keep compression on it and keep it clean. Return precautions were discussed. He does not need tetanus immunization. Impression: 1. Scalp laceration Lab Data Attestation: I reviewed the patient's lab results. Discharge Plan Triage Chief Complaint: Head Injury ED Provider: Dereck Jo Dx/Rx/DC Orders Prescriptions: No Action NK Primary Care Provider: Yusuf Chavez Referrals: Yusuf Chavez MD [Primary Care Provider] -
== END 2022-01-19 22:25 | disposition left against medical advice (07) ==
PROVIDERS: Emergency Provider Student in an Organized Health Care Education/Training Program; PCP Family Medicine; Visit Provider Student in an Organized Health Care Education/Training Program
DX: S01.01XA Laceration without foreign body of scalp, initial encounter (principal); W22.09XA Striking against other stationary object, initial encounter; Y93.E9 Activity, other interior property and clothing maintenance; Y99.9 Unspecified external cause status; Y92.9 Unspecified place or not applicable
CPT/HCPCS: 99282

== ENCOUNTER 2023-05-25 10:34 | Emergency (ER) | payer OTHER, SELFPAY ==
[2023-05-25 10:35] VITALS: BP 125/88; PULSE 95; RESP 16; TEMP 37.2; O2SAT 97; BMI 35.4
--- NOTE | 2023-05-25 10:47 | EX.ED.DYSGE1 ---
HPI History of Present Illness Chief Complaint: General Illness Detail of Chief Complaint: Alcohol withdrawal Informant: patient and spouse/S.O. Narrative Narrative: Patient presents seeking help with alcohol withdrawal symptoms. He has been drinking heavily for the last several years with a gradual increase over the past 4. He has never been through withdrawal or detox before. He states he stopped drinking cold turkey 2 days ago. He had previously been drinking at least a 12 pack a day plus liquor on top of that. Patient states that he has abdominal cramping with nausea. He was shaky earlier but that seems to improved at this time. states his blood pressure was significantly elevated last night he was slightly tachycardic. At this time he does not want to be admitted to the detox program but is looking for help with his symptoms. PFSH PFSH Medical History Alcohol use Home Medications chlordiazepoxide HCl 25 mg capsule 25 mg PO Q6H #11 caps 05/25/23 [Rx Last Taken Unknown] ondansetron 4 mg disintegrating tablet 4 mg PO Q8H PRN PRN Nausea #10 tabs 05/25/23 [Rx Last Taken Unknown] Allergy/AdvReac Type Severity Reaction Status Date / Time shellfish derived Allergy Anaphylaxis Verified 05/25/23 10:35 Surgical History History of appendectomy Social History household members: spouse and children Smoking Status: Never smoker alcohol intake: never substance use type: does not use ROS ROS ED Constitutional Constitutional ED: Denies chills or fever(s) Eyes Eyes: Denies change in vision or discharge from eye(s) ENT ENT ED: Denies discharge from eye(s), rhinorrhea or sore throat Cardiovascular Cardiovascular: Reports racing heartbeat; Denies chest pain or palpitations Respiratory/Chest Respiratory/Chest: Denies cough or dyspnea Gastrointestinal Gastrointestinal: Reports abdominal pain, nausea and vomiting Genitourinary Genitourinary ED: Denies dysuria Musculoskeletal Musculoskeletal: Denies back pain or extremity pain Integumentary Denies Abrasions or rash Neurologic Neurologic: Reports other Details: Shakiness ; Denies headache(s) or weakness Psychiatric Psychiatric: Reports anxiety; Denies depression Endocrine Endocrinology: Denies polydipsia or polyuria Allergic/Immunologic Allergic/Immunologic ED: Denies lip swelling or urticaria EXAM Physical Exam Narrative Exam Narrative: Patient lying in bed no acute distress. No visible tremors at this time. Const Vital Signs: 05/25/23 10:35 Temperature 98.9 F Temperature Source Temporal Pulse Rate 95 Respiratory Rate 16 Blood Pressure 125/88 H Blood Pressure Mean 100 Pulse Ox 97 Oxygen Delivery Method Room Air Positive well nourished and well developed General Appearance ED: well developed HEENT Reports moist mucous membranes Eyes EOMs intact bilaterally Chest Wall inspection of chest normal and palpation of chest normal Resp normal respiratory effort and clear to auscultation bilaterally Cardio regular rate and regular rhythm GI non-tender Palpation: soft Extremity normal to inspection Neuro oriented x3 and no sensory deficits noted Motor Exam: strength 5/5 throughout Psych Mood & Affect: anxious Skin no rashes or lesions noted MDM MDM MDM Narrative Medical decision making narrative: Patient placed on alarm security or surveillance monitor to watch patient's heart rate. He will be given Zofran and Librium. Labwork obtained to evaluate for leukocytosis, anemia, and electrolyte derangement. Patient given IV fluid bolus for hydration. History & Record Review Discussion w/independent historian: Patient and Significant other Lab Data Attestation: I reviewed the patient's lab results. Labs: Laboratory Results - last 24 hr 05/25/23 11:00 WBC 6.9 RBC 5.35 Hgb 16.8 H Hct 47.0 MCV 87.9 MCH 31.4 MCHC 35.7 RDW Std Deviation 36.4 RDW Coeff of Ayleen 11.4 L Plt Count 284 MPV 8.8 Immature Gran % (Auto) 0.600 Neut % (Auto) 60.9 Lymph % (Auto) 25.0 [place] % (Auto) 9.0 Eos % (Auto) 3.9 Baso % (Auto) 0.6 Absolute Neuts (auto) 4.2 Absolute Lymphs (auto) 1.72 Nucleated RBC % 0 Sodium 138 Potassium 3.5 Chloride 107 Carbon Dioxide 24.0 Anion Gap 7 BUN 19 H Creatinine 1.29 Estim Creat Clear Calc 70.03 Est GFR (MDRD) Af Amer 76 Est GFR (MDRD) Non-Af 63 BUN/Creatinine Ratio 14.7 Glucose 116 H Calcium 9.0 Total Bilirubin 1.00 Direct Bilirubin 0.23 AST 23 ALT 29 Alkaline Phosphatase 52 Total Protein 7.7 Albumin 4.1 Globulin 3.6 Treatment and Re-Evaluation :: CBC was a white count 6.9 with a hemoglobin of 16.8. Chemistry studies reveal slightly elevated BUN at 19 with a creatinine 1.29. Glucose is 116. LFTs are normal. About an hour after medications are given patient is reassessed. He states his symptoms are improved. He does not want to be admitted for detox. I will write him a brief Librium taper at home as I do feel this will improve his chances of success. I will also write him some Zofran for nausea. Patient be given information for 180 for follow-up as needed for support. Return instructions were also given. Discharge Plan Triage Chief Complaint: General Illness ED Provider: Makayla Camara Dx/Rx/DC Orders Clinical Impression: Alcohol withdrawal Instructions: ED Withdrawal Alcohol Prescriptions: New ondansetron 4 mg tablet,disintegrating 4 mg PO Q8H PRN PRN (Reason: Nausea) Qty: 10 0RF chlordiazepoxide HCl 25 mg capsule 25 mg PO Q6H Qty: 11 0RF Rx Instructions: 1 tab every 6 hours x 1 day, then 1 tab every 8 hours x 1 day, then 1 tab every 12 hours x 1 day, then 1 tab at bedtime x 2 days Primary Care Provider: Yusuf Chavez Referrals: Yusuf Chavez MD [Primary Care Provider] - 1-2 Weeks [facility] [Non-Staff] - As Needed Disposition Disposition: Home, Self Care
[2023-05-25 11:09] LABS: Absolute Lymphocyte Count 1.72 X10^3/uL (0.83-4.51); Absolute Neutrophil Count 4.2 X10^3/uL (2.0-7.7); Basophil# 0.04 X10^3/uL; Basophil% 0.6 % (0-1); Eosinophil# 0.27 X10^3/uL; Eosinophils% 3.9 % (0-5); Hemoglobin 16.8 g/dL (13.0-16.5); Lymphocyte # 1.72 X10^3/ul (0.83-4.51); Mean Corp Hgb Conc 35.7 g/dL (32-36); Mean Corpuscular Hgb 31.4 pg (27.0-32.0); Mean Corpuscular Volume 87.9 fL (80-94); Mean Platelet Vol. 8.8 fl (6.2-12.0); Monocyte# 0.62 X10^3/uL; NRBC Flagged by Analyzer 0 % (0-5); Neutrophil # 4.18 X10^3/uL (2.7-7.7); Neutrophil % 60.9 % (47-70); Platelet Count 284 K/mm3 (150-450); RBC Distribution Width CV 11.4 % (11.6-14.6); RBC Distribution Width SD 36.4 fl (35.1-43.9); Red Blood Count 5.35 M/mm3 (4.6-6.2); White Blood Count 6.9 K/mm3 (4.4-11.0)
[2023-05-25] MEDS: chlordiazePOXIDE 25 MG Capsule PO (11:14)
[2023-05-25] MEDS: Ondansetron 4 MG/2 ML Vial IV (11:14)
[2023-05-25] MEDS: 0.9% Normal Saline (1000mL) 1,000 ML 1000 ML IV (11:14)
[2023-05-25 11:31] LABS: AST(SGOT) 23 U/L (15-37); Alanine Aminotransfer ALT/SGPT 29 U/L (16-61); Albumin, Serum 4.1 g/dL (3.2-5.0); Alkaline Phosphatase 52 U/L (45-117); Anion Gap 7 (5-15); BUN 19 mg/dL (7-18); BUN/Creat Ratio 14.7 RATIO (10-20); Bilirubin, Direct 0.23 mg/dL (0.00-0.30); Chloride 107 mmol/L (98-107); Creatinine, Serum 1.29 mg/dL (0.70-1.30); EST Glomerular Filtration Rate 63 mL/min (>60); Est Glom Filt Rate - Afr Amer 76 mL/min (>60); Estimated Creatinine Clearance 70.03 ml/min; Globulin 3.6 g/dL (2.2-4.2); Glucose 116 mg/dL (74-106); Potassium 3.5 mmol/L (3.5-5.1); Protein, Total 7.7 g/dL (6.4-8.2); Sodium Level 138 mmol/L (136-145)
== END 2023-05-25 12:25 | disposition home or self-care (01) ==
PROVIDERS: Emergency Provider Emergency Medicine; PCP Family Medicine; Visit Provider Emergency Medicine
DX: F10.239 Alcohol dependence with withdrawal, unspecified (principal); F41.9 Anxiety disorder, unspecified
CPT/HCPCS: 80048; 80076; 85025; 96361; 96374; 99285; J7030; A4216; J2405

== ENCOUNTER 2023-05-27 02:37 | Emergency (ER) | payer OTHER, SELFPAY ==
[2023-05-27 02:38] VITALS: BP 180/110; PULSE 94; RESP 22; TEMP 35.4; O2SAT 98; BMI 36.4
--- NOTE | 2023-05-27 02:41 | EKG12_ITS ---
Test Reason : DYSRHYTHMIA Blood Pressure : / mmHG Vent. Rate : 060 BPM Atrial Rate : 060 BPM P-R Int : 240 ms QRS Dur : 098 ms QT Int : 438 ms P-R-T Axes : 068 051 060 degrees QTc Int : 438 ms Sinus rhythm with 1st degree A-V block Otherwise normal ECG Confirmed by ADILSON MILLER, RANDAL ([id number]), editor magazine GLORY LEUNG ([id number]) on 06/02/2023 11:47:29 AM Referred By: Confirmed By:RANDAL DE ANDA MD
--- NOTE | 2023-05-27 02:46 | EDS_ITS ---
HPI History of Present Illness Chief Complaint: Substance Abuse Detail of Chief Complaint: Epigastric pain Informant: patient and spouse/S.O. Onset/Context/Timing Onset: Yesterday Narrative Narrative: Patient presents secondary to severe epigastric pain. Patient was seen by myself in the ER on the with alcohol withdrawal. He did not wish to be admitted but we did write him a low-dose Librium taper. Patient states he is still sober but last evening developed severe burning pain in his epigastrium. He tried Zofran and milk without any improvement. PFSH PFSH Medical History Alcohol use Home Medications chlordiazepoxide HCl 25 mg capsule 25 mg PO Q6H #11 caps 05/25/23 [Rx Last Taken Unknown] ondansetron 4 mg disintegrating tablet 4 mg PO Q8H PRN PRN Nausea #10 tabs 05/25/23 [Rx Last Taken Unknown] hydrocodone-acetaminophen 5-325mg 5mg-325mg 1 tab PO Q6H PRN PRN Pain 3 days #10 TABLETS 05/27/23 [Rx Last Taken Unknown] Allergy/AdvReac Type Severity Reaction Status Date / Time shellfish derived Allergy Anaphylaxis Verified 05/27/23 02:38 Surgical History History of appendectomy Social History household members: spouse and children Smoking Status: Never smoker alcohol intake: never substance use type: does not use ROS ROS ED Constitutional Constitutional ED: Denies chills or fever(s) Eyes Eyes: Denies change in vision or discharge from eye(s) ENT ENT ED: Denies discharge from eye(s), rhinorrhea or sore throat Cardiovascular Cardiovascular: Reports chest pain; Denies palpitations Respiratory/Chest Respiratory/Chest: Denies cough or dyspnea Gastrointestinal Gastrointestinal: Reports abdominal pain and nausea; Denies vomiting Musculoskeletal Musculoskeletal: Denies back pain or extremity pain Integumentary Denies Abrasions or rash Neurologic Neurologic: Denies headache(s) or weakness Psychiatric Psychiatric: Denies anxiety or depression Allergic/Immunologic Allergic/Immunologic ED: Denies lip swelling or urticaria EXAM Physical Exam Const Vital Signs: 05/27/23 02:38 05/27/23 02:38 05/27/23 03:38 Temperature 95.7 F L Temperature Source Temporal Pulse Rate 94 65 Respiratory Rate 22 H 22 H 15 Blood Pressure 180/110 H 134/117 H Blood Pressure Mean 133 122 Pulse Ox 98 92 Oxygen Delivery Method Room Air Room Air 05/27/23 05:10 05/27/23 06:25 Temperature Temperature Source Pulse Rate 60 71 Respiratory Rate 20 H 16 Blood Pressure 155/81 H 142/76 H Blood Pressure Mean 105 98 Pulse Ox 94 97 Oxygen Delivery Method Room Air Positive well nourished and well developed General Appearance ED: well developed HEENT Reports moist mucous membranes Eyes EOMs intact bilaterally Chest Wall inspection of chest normal and palpation of chest normal Resp normal respiratory effort and clear to auscultation bilaterally Cardio regular rate and regular rhythm GI GI Narrative: Abdomen soft with mild tenderness in the epigastrium. No palpable masses. Extremity normal to inspection Neuro oriented x3 Motor Exam: strength 5/5 throughout Psych Mood & Affect: anxious Skin no rashes or lesions noted MDM MDM MDM Narrative Medical decision making narrative: Patient placed on quality assurance monitor. EKG obtained to evaluate for cardiac arrhythmia/ischemia. Labwork obtained to evaluate for leukocytosis, anemia, and electrolyte derangement. Patient given Zofran and Bentyl along with a GI cocktail. He is given 1 mg of IV Ativan. History & Record Review Discussion w/independent historian: Patient and Significant other Additional record(s) reviewed:: Prior ED visit and Prior labs Lab Data Attestation: I reviewed the patient's lab results. Labs: Laboratory Results - last 24 hr 05/27/23 05/27/23 02:51 05:00 WBC 7.1 RBC 5.16 Hgb 16.2 Hct 45.7 MCV 88.6 MCH 31.4 MCHC 35.4 RDW Std Deviation 35.9 RDW Coeff of Ayleen 11.2 L Plt Count 300 MPV 8.8 Immature Gran % (Auto) 0.600 Neut % (Auto) 59.4 Lymph % (Auto) 28.2 [place] % (Auto) 7.6 Eos % (Auto) 3.8 Baso % (Auto) 0.4 Absolute Neuts (auto) 4.2 Absolute Lymphs (auto) 2.00 Nucleated RBC % 0 Sodium 141 Potassium 4.1 Chloride 108 H Carbon Dioxide 28.0 Anion Gap 5 BUN 16 Creatinine 1.26 Estim Creat Clear Calc 69.37 Est GFR (MDRD) Af Amer 79 Est GFR (MDRD) Non-Af 65 BUN/Creatinine Ratio 12.7 Glucose 104 Calcium 8.6 Total Bilirubin 0.40 Direct Bilirubin 0.12 AST 14 L ALT 29 Alkaline Phosphatase 56 Troponin I High Sens 12 11 Total Protein 7.5 Albumin 3.8 Globulin 3.7 Lipase 102 H Radiography Diagnostic Testing: Clinical Impression(s) from Imaging Studies Abdomen/Pelvis CT 05/27/23 04:42 IMPRESSION: 1. Gallstones. 2. Moderate splenomegaly. 3. Mild hepatomegaly. 4. Small nonobstructive left renal calculus. No demonstrated ureteral calculus or hydronephrosis. 5. No evidence for acute pathology. Electronically Signed: Jemal Blanton MD at 5:27 EST , Treatment and Re-Evaluation :: CBC was normal white count 7.1 with a hemoglobin of 16.2. Normal differential. Chemistry studies largely unremarkable. LFTs normal. Lipase is 102. Initial troponin is 12 with a repeat troponin of 11. After initial round of medication which included Zofran, Ativan, Bentyl, GI cocktail patient was still having pain and dry heaves. He was then given a dose of morphine and Phenergan. Following this medication he was resting more comfortably in bed but still reported significant epigastric pain. CT scan flank reveals large gallstones but no evidence of acute cholecystitis at this time. On repeat exam patient now sleeping comfortably. He is easily awoken and reports his pain is significantly improved. Patient was seen here about 2 years ago for a visit with similar presentation. He may have had a gallbladder issue at that time. Test results are discussed with the patient as well as at bedside. Given that his pain is significant proved at this time I will give him a prescription for [place] and refer him to surgery for outpatient evaluation of his gallstones. Return instructions are given. Discharge Plan Triage Chief Complaint: Substance Abuse ED Provider: Makayla Camara Dx/Rx/DC Orders Clinical Impression: Gallstones, Abdominal pain, epigastric Instructions: ED Gallstones with Biliary Colic, ED Epigastric Pain Uncertain Cause Prescriptions: New hydrocodone-acetaminophen 5-325 mg tablet 1 tab PO Q6H PRN PRN (Reason: Pain) 3 Days Qty: 10 0RF No Action ondansetron 4 mg tablet,disintegrating 4 mg PO Q8H PRN PRN (Reason: Nausea) Qty: 10 0RF chlordiazepoxide HCl 25 mg capsule 25 mg PO Q6H Qty: 11 0RF Rx Instructions: 1 tab every 6 hours x 1 day, then 1 tab every 8 hours x 1 day, then 1 tab every 12 hours x 1 day, then 1 tab at bedtime x 2 days Primary Care Provider: Yusfu Chavez Referrals: Jefe Meng MD [Med Staff - Active Staff] - 5-7 Days Yusuf Chavez MD [Primary Care Provider] - Disposition Disposition: Home, Self Care Discharge Date/Time: 05/27/23 06:28
[2023-05-27] MEDS: Dicyclomine 20 MG/2 ML Vial IM (02:59)
[2023-05-27] MEDS: Mag Hydrox/Al Hydrox/Simeth 30 ML UDC PO (02:59)
[2023-05-27] MEDS: LORazepam 2 MG/ML Syringe 1 MG IV (02:59)
[2023-05-27] MEDS: 0.9% Normal Saline (1000mL) 1,000 ML 1000 ML IV (02:59)
[2023-05-27] MEDS: Ondansetron 4 MG/2 ML Vial IV (02:59)
[2023-05-27 03:04] LABS: Absolute Neutrophil Count 4.2 X10^3/uL (2.0-7.7); Basophil# 0.03 X10^3/uL; Basophil% 0.4 % (0-1); Eosinophil# 0.27 X10^3/uL; Eosinophils% 3.8 % (0-5); Hematocrit 45.7 % (40-54); Hemoglobin 16.2 g/dL (13.0-16.5); Lymphocyte % 28.2 % (19-41); Mean Corp Hgb Conc 35.4 g/dL (32-36); Mean Corpuscular Hgb 31.4 pg (27.0-32.0); Mean Corpuscular Volume 88.6 fL (80-94); Mean Platelet Vol. 8.8 fl (6.2-12.0); Monocyte# 0.54 X10^3/uL; Monocyte% 7.6 % (0-10); NRBC Flagged by Analyzer 0 % (0-5); Neutrophil # 4.22 X10^3/uL (2.7-7.7); Neutrophil % 59.4 % (47-70); Platelet Count 300 K/mm3 (150-450); RBC Distribution Width CV 11.2 % (11.6-14.6); RBC Distribution Width SD 35.9 fl (35.1-43.9); Red Blood Count 5.16 M/mm3 (4.6-6.2); White Blood Count 7.1 K/mm3 (4.4-11.0)
[2023-05-27] MEDS: Pantoprazole Sodium 40 MG in 0.9% Normal Saline (100mL MB+) 100 ML 330 MG IV (03:08)
[2023-05-27 03:24] LABS: AST(SGOT) 14 U/L (15-37); Alanine Aminotransfer ALT/SGPT 29 U/L (16-61); Albumin, Serum 3.8 g/dL (3.2-5.0); Alkaline Phosphatase 56 U/L (45-117); Anion Gap 5 (5-15); BUN 16 mg/dL (7-18); BUN/Creat Ratio 12.7 RATIO (10-20); Bilirubin, Direct 0.12 mg/dL (0.00-0.30); Calcium,Total 8.6 mg/dL (8.5-10.1); Chloride 108 mmol/L (98-107); Creatinine, Serum 1.26 mg/dL (0.70-1.30); EST Glomerular Filtration Rate 65 mL/min (>60); Est Glom Filt Rate - Afr Amer 79 mL/min (>60); Estimated Creatinine Clearance 69.37 ml/min; Globulin 3.7 g/dL (2.2-4.2); Glucose 104 mg/dL (74-106); Lipase 102 U/L (13-75); Potassium 4.1 mmol/L (3.5-5.1); Protein, Total 7.5 g/dL (6.4-8.2); Sodium Level 141 mmol/L (136-145); Troponin-I HS 12 pg/mL (3.0-78.0)
[2023-05-27 03:38] VITALS: BP 134/117; PULSE 65; RESP 15; O2SAT 92
[2023-05-27] MEDS: proMETHazine 25 MG/ML Syringe 12.5 MG IM (04:03)
[2023-05-27] MEDS: Morphine 4 MG/ML Syringe IV (04:04)
--- NOTE | 2023-05-27 04:42 | CT_ITS ---
EXAM: CT ABDOMEN AND PELVIS WITHOUT INTRAVENOUS CONTRAST CLINICAL INDICATION: epigastric pain. Alcohol withdrawal. TECHNIQUE: Helically acquired images were obtained of the abdomen and pelvis without intravenous contrast. This CT exam was performed using one or more of the following dose reduction techniques: automated exposure control, adjustment of the mA and/or kV according to patient size, and/or use of iterative reconstruction technique. RADIATION DOSE: CTDIvol = 15.87 mGy, DLP = 880.18 mGy-cm COMPARISON: CT scan abdomen and pelvis 04/18/2019. FINDINGS: LOWER THORAX: Unremarkable. Lung bases are clear. No cardiomegaly. No significant pericardial effusion. ABDOMEN: LIVER: The liver is mildly enlarged. GALLBLADDER AND BILE DUCTS: Multiple gallstones. No gallbladder distention or wall edema. No intra- or extrahepatic biliary ductal dilation. PANCREAS: Unremarkable. No focal cystic mass. SPLEEN: The spleen is moderately enlarged. ADRENALS: Unremarkable. No nodules. KIDNEYS AND URETERS: There is a 4 mm nonobstructive left renal calculus. Normal renal size and position. STOMACH AND BOWEL: Unremarkable. No stomach or bowel distention. No focal inflammatory change. PELVIS: APPENDIX: The appendix is surgically absent. BLADDER: Unremarkable. REPRODUCTIVE: Unremarkable as visualized. No mass. ABDOMEN and PELVIS: INTRAPERITONEAL SPACE: Unremarkable. No ascites or other fluid collection. No free air. BONES/JOINTS: There are multilevel degenerative changes in the visualized spine. No suspicious lytic or blastic abnormality. SOFT TISSUES: Unremarkable. No discrete abdominal or pelvic wall hernia. VASCULATURE: Unremarkable. Abdominal aorta is non-dilated. LYMPH NODES: Unremarkable. No enlarged lymph nodes. CT/Abdomen/Pelvis without Cont IMPRESSION: 1. Gallstones. 2. Moderate splenomegaly. 3. Mild hepatomegaly. 4. Small nonobstructive left renal calculus. No demonstrated ureteral calculus or hydronephrosis. 5. No evidence for acute pathology. Electronically Signed: Jemal Blanton MD at 5:27 EST Reading Location ID and State: [facility] / [place] , Service support ,
[2023-05-27] MEDS: 0.9% Normal Saline (1000mL) 1,000 ML 150 ML IV (05:08)
[2023-05-27 05:10] VITALS: BP 155/81; PULSE 60; RESP 20; O2SAT 94
[2023-05-27 05:32] LABS: Troponin-I HS 11 pg/mL (3.0-78.0)
[2023-05-27 06:25] VITALS: BP 142/76; PULSE 71; RESP 16; O2SAT 97
== END 2023-05-27 06:28 | disposition home or self-care (01) ==
PROVIDERS: Emergency Provider Emergency Medicine; PCP Family Medicine; Visit Provider Emergency Medicine
DX: K80.20 Calculus of gallbladder without cholecystitis without obstruction (principal); R07.9 Chest pain, unspecified; F10.90 Alcohol use, unspecified, uncomplicated
CPT/HCPCS: 74176; 80048; 80076; 83690; 84484; 85025; 93005; 96361; 96372; 96374; 96375; 99284; J7030; J7120; A4216; J2405

== ENCOUNTER 2023-06-17 10:30 | Day surgery (SDC) | payer OTHER, SELFPAY ==
[2023-06-17] VITALS (10 sets, daily range): BP systolic 133–144; BP diastolic 82–92; PULSE 58–70; RESP 16–18; TEMP 36.1–36.8; O2SAT 89–99; BMI 35.7
--- NOTE | 2023-06-17 | GALL_PTH ---
PATIENT: [place] [facility] [id number] AGE/SX: 48/M ROOM: RE06/17/[address]: Dr. Jefe Meng MD : 1975 BED: DIS: 06/17/2023 SPEC #: [id number] RECD: 06/18/23 08:42 STATUS: AMA YINGOksana #: [id number] PABLO: 06/17/23 00:[address]: Jefe Meng DEPT: SURGICAL PATHOLOGY RECD BY: Darell Stewart ENTERED: 06/18/23 08:42 SP TYPE: EMILY WANG DR: Dr. Yusuf Chavez MD Tissues: Gallbladder, NOS Procedures: Surgery Specimen Level III HEADER OPERATION: Laparoscopic, cholecystectomy with IOC PRE-OP DIAGNOSIS: Gallstones, epigastric abdominal pain TISSUE SUBMITTED: Gallbladder MICROSCOPIC DIAGNOSIS Gallbladder, cholecystectomy: Chronic cholecystitis and cholelithiasis. AM:lukas 06/21/2023 MICROSCOPIC DESCRIPTION Slides are reviewed. GROSS DESCRIPTION Received is one container labeled with the patient's name and designated gallbladder. The specimen consists of a gallbladder measuring 13.0 x 3.0 x 3.0 cm. The external surface is smooth and glistening. Focally, it is granular, hemorrhagic and contains cautery artifact. The lumen of the gallbladder contains greenish mucoid bile and two ovoid green-bray calculi ranging in size from 2.3 to 4.0 cm in greatest dimension. The mucosa is bile-stained and without any mass lesions. The gallbladder wall averages 0.2 cm in thickness and is free of mass lesions. Recycle Worker sections of the gallbladder and the cystic duct at margin of resection are submitted in one cassette. / AM:lukas 06/18/2023 TC:3 [facility]: [id number]
[2023-06-17] MEDS: Lactated Ringers 1,000 ML 15 ML IV (11:39)
--- NOTE | 2023-06-17 12:23 | HP.PCM_ITS ---
History and Physical Date of Admission: 06/17/23 Intake Vital Signs 05/27/2302:38 06/01/2311:19 Height 5 ft 8.9 in 5 ft 8 in Weight: 259 lb 2 oz BMI 39.4 BP 147/93 H Blood Pressure Location Lt brachial Position Sitting Respiration 19 H Pulse 77 Pulse Source Monitor Temp 98.2 F Temp Source Temporal Pulse Oximetry (%) 97 Oxygen Delivery Method room air Intake Visit Reasons: [facility] ER FU Chief Complaint: [facility] ER f/u- epigastric pain Cow Trimmer Required: No Accompanied by: Is patient in pain?: Yes Allergies shellfish derived Allergy (Verified 06/01/23 11:21) Anaphylaxis Medications chlordiazepoxide HCl 25 mg capsule 25 mg PO Q6H #11 caps 05/25/23 [Rx Confirmed 06/01/23] ondansetron 4 mg disintegrating tablet 4 mg PO Q8H PRN PRN Nausea #10 tabs 05/25/23 [Rx Confirmed 06/01/23] hydrocodone-acetaminophen 5-325mg 5mg-325mg 1 tab PO Q6H PRN PRN Pain 3 days #10 TABLETS 05/27/23 [Rx Confirmed 06/01/23] PFSH Medical History (Updated 06/01/23 @ 11:14 by Enedelia Raymundo LPN) Alcohol use Gallstone Surgical History History of appendectomy Family History (Updated 06/01/23 @ 11:16 by Enedelia Raymundo LPN) Mother DiabetesFather Cancer Pancreatic Social History (Updated 06/01/23 @ 11:18 by Enedelia Raymundo LPN) household members: spouse and children Smoking Status: Never smoker alcohol intake: current alcohol intake frequency: 0-2 drinks per day Alcohol type: beer, wine, hard liquor and other Previous attempts at quittin substance use type: does not use HPI HPI HPI: Patient is a 48-year-old male here with epigastric pain. Patient does not have epigastric pain on a regular basis but he has episodes about once or twice a year. His last episode was earlier this month and he was in the emergency room. CT scan revealed large gallstones. The patient denies any nausea or fevers or chills. ROS General General: Yes weight change (gain) and fatigue Psych Psychiatric: Yes depression and anxiety Gastro Gastrointestinal: Yes abdominal pain, Yes nausea or vomiting, Yes constipation, Yes acid reflux, Yes hemorrhoids and Yes gallbladder problem Neuro Neurologic: Yes numbness and Yes tingling Exam Const General: cooperative Orientation: alert and oriented x3 HENMT Head: normal to inspection Neck Neck: normal visual inspection and full ROM Chest Chest palpation & inspection: normal inspection of the chest Resp Effort & Inspection: normal respiratory effort Auscultation: clear to auscultation bilaterally Cardio Rate: regular rate Rhythm: regular rhythm GI Inspection: non-distended Palpation: soft and nontender Skin General: no rashes or lesions noted Neuro General: patient alert and patient oriented x3 Extrem General: full ROM Psych Appearance: grossly normal Mental Status: mental status grossly normal Assessment and Plan Assessment and Plan (1) Gallstones: Status: Acute (2) Abdominal pain, epigastric: Status: Acute Plan The patient has [address] scan and he has been having episodes of epigastric pain. I laparoscopic cholecystectomy. I discussed the procedure in detail with the patient. I discussed the risks, benefits, and alternatives of the procedure. I discussed the risks including but not limited to bleeding, infection, injury to surrounding organs such as the liver, bile duct, bowels. I did discuss the possibility of having to convert to an open procedure as well as the possibility that if any injuries occurred this may necessitate further surgery at a tertiary care center. Jefe Meng MD Pager: [facility] [address] [place] [address], [address] [place] [address] Office: I have examined the patient and the H&P has been reviewed. There are no clinical changes since date of exam.
[2023-06-17] MEDS: Cefotetan 2 GM in 0.9% NS 100 ML IV (13:20)
--- NOTE | 2023-06-17 13:49 | RAD_ITS ---
STUDY: INTRAOPERATIVE CHOLANGIOGRAM. REASON FOR EXAM: Male, 48 years old. LAP HENRIK WITH IOC FLUOROSCOPY TIME (if supplied): ( 11 seconds ) minutes/seconds. 5.16 mGy TECHNIQUE: An intraoperative cholangiogram was performed by the surgeon. Imaging was submitted. COMPARISON: None. FINDINGS: The visualized intra and extrahepatic biliary ducts are unremarkable. No intraluminal filling defect is seen. There is free flow of contrast into the duodenum. RAD/Cholangiogram/ O R,Initial IMPRESSION: Unremarkable intraoperative cholangiogram. Electronically Signed: Krish Cagle MD at 14:30 EST ,
[2023-06-17] MEDS: Bupivacaine 0.25% 30 ML Vial (14:27)
--- NOTE | 2023-06-17 14:34 | OP.PCM_ITS ---
Report of Operation Date of Procedure: 06/17/23 Pre-Operative Diagnosis: Cholelithiasis Post-Operative Diagnosis: Cholelithiasis with chronic cholecystitis Surgery/Procedure Performed:: Laparoscopic cholecystectomy with cholangiogram Type of Anesthesia: General/Regional Specimen's removed: Gallbladder Estimated Blood Loss (mL): 10 Description of Procedure: After obtaining informed consent patient was brought back to the operating room. General anesthesia was induced. The abdomen was prepped and draped in usual sterile fashion. A small midline incision was made superior to the umbilicus and deepened to the level of fascia. The fascia was elevated and incised. Next the peritoneum was elevated and incised in the same fashion. Finger sweep was performed and the Contreras trocar was placed into the abdomen. The balloon was inflated. The abdomen was inflated to 15 mmHg. Next a camera was introduced into the abdomen and the abdomen was inspected. Next under direct visualization three 5-mm ports were placed one subxiphoid and 2 subcostal. Next the gallbladder was elevated and retracted toward the right shoulder. The peritoneum was stripped from the gallbladder. The infundibulum was located and retracted laterally. Next the triangle of Calot was dissected and the cystic duct and cystic artery were identified. Cholangiograms were performed. The K umar clamp was used to clamp across the infundibulum and the catheter needle was inserted into the gallbladder. Under fluoroscopy contrast was instilled into the gallbladder and the common duct, cystic duct as well as proximal hepatic ducts were identified. There was good filling of the duodenum. There were no filling defects noted in the common bile duct. The clamp was removed as well as the needle and the infundibulum was grasped once more. Three hemolock clips were placed across the cystic duct. The cystic duct was then divided leaving 2 clips on the stump. The cystic artery was clipped and divided in the same fashion. The hook cautery was then used to take the gallbladder off of the gallbladder bed. Hemostasis was obtained. Gallbladder fossa was irrigated and no active bleeding or bile leakage was noted. Next the camera was introduced in the subxiphoid port. An Endopouch bag was placed through the umbilical port and the gallbladder was placed into it. The gallbladder was then removed through the umbilical incision. The camera was then reinserted through the umbilical port. The gallbladder fossa was inspected once more and noted to be hemostatic with no leaking bile. The abdomen was suctioned dry. The 5 mm ports were removed under direct visualization. The umbilical port was then removed and the air was removed from the abdomen. Next using an 0 Vicryl suture the umbilical fascia was closed in a [id number] fashion. The umbilical port site was irrigated local anesthetic was administered to all the incisions. All the incisions were closed with interrupted subcuticular 4-0 Monocryl sutures followed by Steri-Strips and dressings. The patient was awoken and taken to PACU in stable condition. Admit VTE Documentation VTE Mechan Device Prophylaxis: SCD's
--- NOTE | 2023-06-17 14:35 | DCINST_ITS ---
Discharge Instructions Procedure Gallbladder Diet Discharge Diet: Light diet - advance as tolerated Activity Discharge Activity: May Not Drive (for 2-3 days or while taking narcotic pain medications.) and - (Do not drive, work heavy equipment or sign legal documents for 24 hours.) May shower in (days): 1 Lifting Restrictions: 20 lbs for 2 weeks Additional Activity Instructions:: Pain medication may cause nausea. You should typically eat light foods as you take your pain medications. Pain medication may also cause constipation. If this is a problem for you, please discuss with your doctor. Dressing / Incision Call your doctor if your incision/area has: Continuous Slow Oozing, Sudden Increased Bleeding, Increased Pain/ Swelling, Increased Redness and Foul Smelling Discharge Call your doctor if you observe: Fever of 101 or Higher Suture Line Care: Avoid Pulling/Pushing and Avoid Pinching/Bending Remove Dressing in: 2 days Additional Dressing/Incision Instructions:: Leave operative bandaids on for 2 days. When you remove dressing, leave Steri-Strips on until your follow-up appointment, or until the Steri-Strips fall off on their own. Follow Up Care Please Follow Up With: Jefe Meng MD When: Please call to schedule 2 week follow up appointment. [phone] Test Results: Test results from this visit will be discussed in further detail at your follow- up appointment, if applicable. Discharge Plan Admission Attending Provider: Jefe Meng Primary Care Provider: Yusuf Chavez Instructions Additional Instructions / Restrictions: Alternate ibuprofen and Tylenol for pain, oxycodone for breakthrough. Discharge Orders/Prescriptions Prescriptions: New oxycodone 5 mg Tablet 5 - 10 mg PO Q4H PRN PRN (Reason: Pain Score 4-10/10) 5 Days Qty: 15 0RF No Action ondansetron 4 mg tablet,disintegrating 4 mg PO Q8H PRN PRN (Reason: Nausea) Qty: 10 0RF tadalafil [Cialis] 10 mg tablet 10 mg PO DAILY PRN (Reason: sexual activity) Rx Instructions: administer approximately 30min before sexual activity; do not use more than 1 dose per 24hrs Referrals / Follow Up: Yusuf Chavez MD [Primary Care Provider] - Disposition Disposition (needs filled in before D/C Order can be placed): Home, Self Care
[2023-06-17] MEDS: Acetaminophen 325 MG Tablet 650 MG PO (16:41)
[2023-06-17] MEDS: oxyCODONE 5 MG Tablet PO (16:41)
== END 2023-06-17 17:29 | disposition home or self-care (01) ==
LOC: SDC 10:31 → AC 10:32
PROVIDERS: PCP Family Medicine; Referring Provider Surgery; Visit Provider Surgery
PROC: (CPT 47610; principal; 2023-06-17 12:05)
DX: K80.10 Calculus of gallbladder with chronic cholecystitis without obstruction (principal); Z90.49 Acquired absence of other specified parts of digestive tract
CPT/HCPCS: 47563; 00790; 74300; 76000; 88304; 93005; J7120; J2405

== ENCOUNTER 2023-08-20 06:42 | Inpatient (IN) | payer OTHER, SELFPAY ==
[2023-08-20 08:35] VITALS: BP 159/93; PULSE 67; RESP 18; TEMP 37.2; O2SAT 98; BMI 34.3
[2023-08-20 08:43] VITALS: BP 126/95; PULSE 60; RESP 18; TEMP 36.6; O2SAT 99
--- NOTE | 2023-08-20 08:44 | PCM.HP.STD ---
HPI - General General Date of Admission: 08/20/23 Date of Service: 08/20/23 Chief Complaint: Alcohol withdrawal with seizure. HPI Narrative The patient is a 48 y/o M w/ PMHx: Anxiety and Depression/PTSD, Hx Hepatitis, EtOH abuse (Everclear 3 pints daily, at least a 30 pack of beer if no Everclear), Polysubstance abuse (Hx prior IVDA with heroin/fentanyl and prior cocaine which he has not used x 12 years but still ongoing use of snorted methamphetamine and cannabis smoked) who presents to the [facility] as a direct admission from outside facility on 08/20/2023 presenting to ED at outside facility secondary to history of withdrawal alcohol seizure while in senior care with noted episodes of nausea, tremors, agitation, tactile disturbances and eventually reported seizure. He notes that his last drink had been on Wednesday as well as his last drug usage with methamphetamine and he did get taken to the senior care while he was significantly intoxicated. At outside facility workup included CIWA 7, BP 130/75, heart rate 56, troponin normal, EKG with sinus rhythm with occasional PVC, CBC with WBC 5.3, 115.2, platelet 272 with unclear shift, BMP with sodium 139, potassium 5.3, chloride 103, bicarb 26, BUN/creatinine 5/0.5, glucose 113, CT head with no acute intracranial findings. Patient transition to [facility] for alcohol withdrawal treatment. [facility] Medical History Alcohol use Anxiety Erectile dysfunction External hemorrhoids Gallstone Hepatitis Injury of head and neck Marijuana use Non-smoker PTSD (post-traumatic stress disorder) Wears dentures Wears glasses Home Medications tadalafil 10 mg tablet (Cialis) 10 mg PO DAILY PRN sexual activity 06/09/23 [History Last Taken Unknown] oxycodone 5 mg tablet 5 - 10 mg (1 - 2 x 5 mg) PO Q4H PRN PRN Pain Score 4-10/10 5 days #15 tabs 06/17/23 [Rx Last Taken Unknown] buspirone 5 mg tablet 10 mg PO BID 08/20/23 [History Last Taken Unknown] sertraline 50 mg tablet 50 mg PO QHS 08/20/23 [History Last Taken Unknown] trazodone 50 mg tablet 50 mg PO QHS 08/20/23 [History Last Taken Unknown] Allergy/AdvReac Type Severity Reaction Status Date / Time hydroxyzine [From Vistaril] Allergy Intermediate PALPITATION Verified 06/09/23 11:34 S shellfish derived Allergy Anaphylaxis Verified 06/01/23 11:21 Family History Mother Diabetes Father Cancer Pancreatic Surgical History History of appendectomy History of neck surgery History of skin surgery Social History household members: spouse and children Smoking Status: Never smoker alcohol intake: current alcohol intake frequency: 0-2 drinks per day Alcohol type: beer, wine, hard liquor and other Previous attempts at quittin substance use type: does not use ROS ROS Narrative Admission Review of Systems: CONSTITUTIONAL: No weight loss, fever, chills, + weakness or fatigue. HEENT: Eyes: No visual loss, blurred vision, double vision or yellow sclerae. Ears, Nose, Throat: No hearing loss, sneezing, congestion, runny nose or sore throat. SKIN: No rash or itching, lesions, wounds. CARDIOVASCULAR: No chest pain, chest pressure or chest discomfort, palpitations, edema, orthopnea, syncopal events. RESPIRATORY: No shortness of breath, cough or sputum, wheezing, hemoptysis. GASTROINTESTINAL: + anorexia, nausea. No vomiting or diarrhea, abdominal pain, melena, BRBPR. GENITOURINARY: No dysuria, frequency, urgency or retention. NEUROLOGICAL: + Mild tremors, mild tactile disturbances, seizure activity (unclear loss bladder/bowel). No headache, dizziness, syncope, paralysis, ataxia, numbness or tingling in the extremities, focal weakness, change in bowel or bladder control. MUSCULOSKELETAL: + muscle, back pain, joint pain or stiffness. HEMATOLOGIC: No anemia, bleeding or bruising. LYMPHATICS: No enlarged nodes. No history of splenectomy. PSYCHIATRIC: + history of depression and anxiety. ENDOCRINOLOGIC: No reports of sweating, cold or heat intolerance. No polyuria or polydipsia. ALLERGIES: + history of anaphylaxis. Vital Signs Vital Signs Vital Signs: 08/20/23 08:43 Temperature 97.9 F Temperature Source Oral Pulse Rate 60 Respiratory Rate 18 Blood Pressure 126/95 H Blood Pressure Mean 105 Blood Pressure Source Monitor Blood Pressure Position Semi-Fowlers Blood Pressure Location Right Arm Pulse Ox 99 Oxygen Delivery Method Room Air Weight Weight: 225 lb 15.581 oz Body Mass Index (BMI) 34.3 Physical Exam Narrative Physical Examination: General: Awake, alert, oriented x 3 and cooperative, seated upright in the MS bed, fatigued, notes feeling significantly improved with treatments at outside facility prior to transfer to [facility], he does confirm that he was told that he did have alcohol withdrawal seizures in senior care. Skin: Normal color, normal turgor, no icterus, no cyanosis except for occasional staged ecchymoses, abrasion. HEENT: AT/NC, EOMI, PERRLA, moderately dry MM, no carotid bruits or JVD noted. Lungs: CTA bilaterally, moderate effort, mild decrease BL bases, no rales, ronchi or wheezing. Heart: Regular rate and rhythm; no gallop, rub audible. Abdomen: Soft, NTTP, ND, mildly hyperactive BS, + appreciated mild HM. Extremities: No cyanosis, clubbing, or edema. Neurological: Patient awake, alert, oriented as noted, cognitive function intact; pupils equally reactive to light and accommodation, cranial nerves grossly normal, moving all 4 extremities, no focal deficits, currently recent treatments at outside facility with only noted mild tremulousness, less than tactile disturbances and currently no nausea. Psychiatric: Affect appears fatigued, no acute evidence of depressive or anxiety feelings but does have underlying history. Results Lab / Micro Data 08/20/23 09:38 08/20/23 09:38 Assessment & Plan Assessment/Plan (1) Alcohol withdrawal: (2) Alcohol withdrawal seizure: PLAN: Plan The patient is a 48 y/o M w/ PMHx: Anxiety and Depression/PTSD, Hx Hepatitis, EtOH abuse (Everclear 3 pints daily, at least a 30 pack of beer if no Everclear), Polysubstance abuse (Hx prior IVDA with heroin/fentanyl and prior cocaine which he has not used x 12 years but still ongoing use of snorted methamphetamine and cannabis smoked) who presents to the [facility] as a direct admission from outside facility on 08/20/2023 presenting to ED at outside facility secondary to history of withdrawal alcohol seizure while in senior care with noted episodes of nausea, tremors, agitation, tactile disturbances and eventually reported seizure. 1. New-Onset seizure secondary to EtOH withdrawal: Seizure activity with EtOH withdrawal. CT head w/ no acute findings at outside facility. Lab workup as noted in HPI but no report given regarding alcohol level or UDS of note. Will admit to medical surgical floor given stabilization at outside facility with no further seizure activity, maintain on telemetry on seizure precautions. Will maintain on CIWA, will continue phenobarbital taper regimen, maintain on MVI, folic acid, thiamine. Magnesium and phosphorus levels requested. PRN ativan IV per CIWA and for recurrent seizure activity. Case management consulted for discharge planning. 2. Anxiety and depression/PTSD: We will continue patient home sertraline, BuSpar regimen and utilize higher dose trazodone regimen nightly while admitted. 3. Polysubstance Abuse, IVDA Hx, History of Hepatitis C, Chronic: Patient does report hepatitis C history and was treated. Patient denies any IV drug use x 12 years. Given that he is still using drugs although he reports snorting methamphetamine to be cautious we will obtain hepatitis for coinfection, HIV and syphilis as poor decisions are made during drug use and intoxication. 4. Obesity: Weight loss and lifestyle changes encouraged. 5. DVT prophylaxis: Low risk for type of admission. Charges/Coding Visit Charges Inpatient E&M: 82756 Init Hosp L3
--- OUTSIDE RECORDS SUMMARY | 2023-08-20 08:50 | XMS RPT_ITS | CCD ---
Author Name Unknown Address [address] [place] [address] Organization [facility] Care Team Providers Care Public Policy Professor Name Role Phone Alan Ugalde MD Unavailable [phone] PROVIDER, UNKNOWN Attending Unavailable PROVIDER, UNKNOWN Admitting Unavailable Ernestina Chavez MD Primary Care Provider Ernestina Chavez MD Primary Care Provider Ernetsina Chavez MD Primary Care Provider JORGE CORMIER JR Attending Unavaila JORGE Hughes JR Admitting Unavaila ERNESTINA Naik Primary Care Unavailab LOYDA Morgan DO Primary Care Physician [phone] GERHARD JULIO Referring Unavailable ERNESTINA CHAVEZ Primary Care Unavailab ERNESTINA Cote Primary Care Unavailab SOLITARIO Ash Attending Unavailable ERNESTINA CHAVEZ Primary Care Unavailab KENIA Herr Referring Unavailable GERHARD JULIO Attending Unavailable ERNESTINA CHAVEZ Referring Unavailab le ERNESTINA CHAVEZ Primary Care Unavailab ERNESTINA Cote Attending Unavailab ERNESTINA Cote Primary Care Unavailab DEMIAN Cruz Attending Unavailable DEMIAN WEBB Referring Unavailable ERNESTINA CHAVEZ Primary Care Unavailab DEMIAN Cruz Referring Unavailable ERNESTINA CHAVEZ Primary Care Unavailab DEMIAN Cruz Attending Unavailable ERNESTINA CHAVEZ Primary Care Unavailab KENIA Herr Referring Unavailable KENIA CAIN Referring Unavailable ERNESTINA CHAVEZ Primary Care Unavailab ERNESTINA Cote Primary Care Unavailab ERNESTINA Cote Attending UnavailERNESTINA August Primary Care Unavailab JORGE Key JR Attending Unavaila kourtney CORMIRE JR, JORGE CASE Referring Unavaila ERNESTINA Naik Primary Care Unavailab ERNESTINA Cote Primary Care Unavailab SOLITARIO Ash Attending Unavailable STEPHEN HENDRICKS MD Attending Unavailable LOYDA VAZQUEZ DO Primary Care Unavailable Allergies Allergy Classification Reported Allergen(s) Allergy Type Date of Onset Reaction(s) Facility (19 sources) Shellfish; Translations: [SHELLFISH DERIVED] Drug Allergy 03-29-2019 [facility] Work Phone: (6 sources) Sertraline; Translations: [sertraline] Drug Allergy 06-08-2023 Mental Status Change [facility] Work Phone: (1 source) busPIRone; Translations: [buspirone] Drug Allergy [facility] (1 source) hydrOXYzine; Translations: [hydroxyzine] Drug Allergy [facility] (1 source) Shellfish; Translations: [shellfish] Food allergy [place] Medications Current Medications Medication Drug Class(es) Dates Sig (Normalized) Sig (Original) LORazepam 0.5 mg oral tablet (1 source) Benzodiazepine Start: 07-17-2023 End: 07-20-2023 Ativan 0.5 mg oral tablet Dose : 0.5 mg = 1 tab(s), Oral, q8h, PRN as needed for anxiety, X 3 day(s), # 10 tab(s), 0 Refill(s), 07/20/23 4:52:00 PM EST, Anxiety state, 127.1 Start Date: 07/17/23 Stop Date: 07/20/23 Status: Ordered Completed/Discontinued Medications Medication Drug Class(es) Dates Sig (Normalized) Sig (Original) busPIRone hydrochloride 5 mg oral tablet (4 sources) Start: 06-08-2023 take 1 tablet by mouth three times daily busPIRone (BUSPAR) 5 mg tablet Take 1 tablet by mouth three times a day. 90 tablet 0 06/08/2023 Active Problems Active Problems Problem Classification Problem Date Documented Date Episodic/Chronic Alcohol-related disorders (19 sources) Alcohol abuse; Translations: [Alcohol abuse, uncomplicated] Onset: 03-28-2020 03-28-2020 Chronic Anxiety disorders (3 sources) Generalized anxiety disorder; Translations: [Generalized anxiety disorder] Onset: 06-02-2023 Chronic Cardiac dysrhythmias (2 sources) Irregular heart beat; Translations: [Cardiac arrhythmia, unspecified] Onset: 01-05-2023 Chronic Essential hypertension (17 sources) Hypertensive disorder; Translations: [Essential (primary) hypertension] Onset: 03-28-2020 03-28-2020 Chronic Mood disorders (1 source) Mood disorders; Translations: [Anxiety and depression] Onset: 06-02-2023 Open wounds of head; neck; and trunk (2 sources) Scalp laceration; Translations: [Laceration without foreign body of scalp, subsequent encounter] Episodic Osteoarthritis (1 source) Osteoarthritis of joint of right elbow; Translations: [Primary osteoarthritis, right elbow] Chronic Other male genital disorders (1 source) Male erectile dysfunction, unspecified; Translations: [Impotence of organic origin] Chronic Other male genital disorders (4 sources) Disorder of penis; Translations: [Disorder of penis, unspecified] Chronic Other male genital disorders (1 source) Secondary erectile dysfunction; Translations: [Male erectile dysfunction, unspecified] Chronic Other male genital disorders (1 source) Other specified disorders of penis; Translations: [Penile skin bridge] Onset: 07-24-2022 Chronic Other nervous system disorders (1 source) Ulnar neuropathy of right arm; Translations: [Lesion of ulnar nerve, right upper limb] Chronic Other nervous system disorders (4 sources) Lesion of ulnar nerve, right upper limb; Translations: [Lesion of ulnar nerve] Onset: 06-14-2023 04-21-2023 Chronic Other non-traumatic joint disorders (1 source) Loose body in right elbow joint; Translations: [Loose body in right elbow] Chronic Other nutritional; endocrine; and metabolic disorders (9 sources) Obesity; Translations: [Other obesity due to excess calories] 04-01-2021 Chronic Other nutritional; endocrine; and metabolic disorders (8 sources) Obesity caused by energy imbalance; Translations: [Other obesity due to excess calories] 04-01-2021 Chronic Residual codes; unclassified (17 sources) Daytime somnolence; Translations: [Other hypersomnia] Onset: 03-28-2020 03-28-2020 Chronic Residual codes; unclassified (2 sources) Pain; Translations: [Pain, unspecified] Episodic Residual codes; unclassified (1 source) Sleep disorder, unspecified; Translations: [Difficulty sleeping] Onset: 07-07-2023 Episodic Residual codes; unclassified (1 source) Hallucinations, unspecified; Translations: [Hallucinations] Onset: 07-07-2023 Episodic Unclassified (1 source) OPENED IN ERROR Past or Other Problems Problem Classification Problem Date Documented Da te Episodic/Chronic Other injuries and conditions due to external causes (1 source) Unspecified injury of right elbow, initial encounter; Translations: [Injury of right elbow, initial encounter] Onset: 10-06-2022 Episodic Other non-traumatic joint disorders (1 source) Pain in right elbow; Translations: [Right elbow pain] Onset: 10-06-2022 Episodic Other skin disorders (1 source) Epidermoid cyst of skin; Translations: [Sebaceous cyst] Onset: 05-03-2017 05-03-2017 Episodic Residual codes; unclassified (1 source) Pain, unspecified; Translations: [Pain] Onset: 04-21-2023 Episodic Results Test Name Value Interpretation Reference Range Facil ity Vital Signs Date Time Vital Sign Value Performing Clinician Faci lity 07-17-2023 16:51-0500 Diastolic Blood Pressure Non-Invasive 92 mm[Hg] STEPHEN HENDRICKS MD [facility] 07-17-2023 16:51-0500 Heart rate 88 /min STEPHEN HENDRICKS MD [facility] 07-17-2023 16:51-0500 Respiratory rate 16 /min STEPHEN HENDRICKS MD [facility] 07-17-2023 16:51-0500 Systolic Blood Pressure Non-Invasive 142 mm[Hg] STEPHEN HENDRICKS MD [facility] 07-17-2023 15:39-0500 Body temperature 97.34 [degF] STEPHEN HENDRICKS MD [facility] 07-17-2023 15:39-0500 Diastolic Blood Pressure Non-Invasive 102 mm[Hg] STEPHEN HENDRICKS MD [facility] 07-17-2023 15:39-0500 Heart rate 90 /min STEPHEN HENDRICKS MD [facility] 07-17-2023 15:39-0500 Respiratory rate 20 /min STEPHEN HENDRICKS MD [facility] 07-17-2023 15:39-0500 Systolic Blood Pressure Non-Invasive 148 mm[Hg] STEPHEN HENDRICKS MD [facility] 01-05-2023 18:53-0400 Body weight 119.93 kg Ernestina Chavez MD Work Phone: [facility] 01-05-2023 18:53-0400 Diastolic blood pressure 76 mm[Hg] Ernestina Chavez MD Work Phone: [facility] 01-05-2023 18:53-0400 Heart rate 84 /min Ernestina Chavez MD Work Phone: [facility] 01-05-2023 18:53-0400 Respiratory rate 18 /min Ernestina Chavez MD Work Phone: [facility] 01-05-2023 18:53-0400 SaO2% (BldA) [Mass fraction] 95 % Ernestina Chavez MD Work Phone: [facility] 01-05-2023 18:53-0400 Systolic blood pressure 136 mm[Hg] Ernestina Chavez MD Work Phone: [facility] 09-29-2022 18:25-0400 Body temperature 98.71 [degF] Kenia Cain APRN.CNP Work Phone: [facility] 09-29-2022 18:25-0400 Body weight 115.67 kg Kenia Cain HENRIETTA.MSWS Work Phone: [facility] 09-29-2022 18:25-0400 Diastolic blood pressure 84 mm[Hg] Kenia James HENRIETTA.MSWS Work Phone: [facility] 09-29-2022 18:25-0400 Heart rate 72 /min Kenia Ant SHRESTHA.MSWS Work Phone: [facility] 09-29-2022 18:25-0400 Respiratory rate 16 /min Kenia Cain HENRIETTA.MSWS Work Phone: [facility] 09-29-2022 18:25-0400 SaO2% (BldA) [Mass fraction] 96 % Kenia Ant SHRESTHA.MSWS Work Phone: [facility] 09-29-2022 18:25-0400 Systolic blood pressure 142 mm[Hg] Kenia Ant SHRESTHA.MSWS Work Phone: [facility] 09-01-2022 13:36-0500 Body weight 117.03 kg Jorge Cormier Jr., MD Work Phone: [facility] 09-01-2022 13:36-0500 Respiratory rate 20 /min Jorge Cormier Jr., MD Work Phone: [facility] 06-30-2022 14:57-0500 Body height 175.3 cm Jorge Cormier Jr., MD Work Phone: [facility] 06-30-2022 14:57-0500 Body weight 115.67 kg Jorge Cormier Jr., MD Work Phone: [facility] 05-19-2022 18:54-0500 Diastolic blood pressure 72 mm[Hg] Ernestina Chavez MD Work Phone: [facility] 05-19-2022 18:54-0500 Systolic blood pressure 128 mm[Hg] Ernestina Chavez MD Work Phone: [facility] 05-19-2022 18:22-0500 Body weight 116.67 kg Ernestina Chavez MD Work Phone: [facility] 05-19-2022 18:22-0500 Heart rate 86 /min Ernestina Chavez MD Work Phone: [facility] 05-19-2022 18:22-0500 Respiratory rate 16 /min Ernestina Chavez MD Work Phone: [facility] 05-19-2022 18:22-0500 SaO2% (BldA) [Mass fraction] 96 % Ernestina Chavez MD Work Phone: [facility] 01-26-2022 07:23-0400 Body temperature 97 [degF] Solitario Podlogar NURSING STAFF DEVELOPMENT COORDINATOR.MSWS Work Phone: [facility] 01-26-2022 07:23-0400 Diastolic blood pressure 76 mm[Hg] Solitario Podlogar NURSING STAFF DEVELOPMENT COORDINATOR.MSWS Work Phone: [facility] 01-26-2022 07:23-0400 Heart rate 65 /min Solitario Podlogar NURSING STAFF DEVELOPMENT COORDINATOR.MSWS Work Phone: [facility] 01-26-2022 07:23-0400 Respiratory rate 16 /min Solitario Podlogar NURSING STAFF DEVELOPMENT COORDINATOR.MSWS Work Phone: [facility] 01-26-2022 07:23-0400 SaO2% (BldA) [Mass fraction] 100 % Solitario Podlogar NURSING STAFF DEVELOPMENT COORDINATOR.MSWS Work Phone: [facility] 01-26-2022 07:23-0400 Systolic blood pressure 124 mm[Hg] Solitario Podlogar NURSING STAFF DEVELOPMENT COORDINATOR.MSWS Work Phone: [facility] 01-21-2022 09:03-0400 Body temperature 97.3 [degF] Solitario Podlogar NURSING STAFF DEVELOPMENT COORDINATOR.MSWS Work Phone: [facility] 01-21-2022 09:03-0400 Body weight 109.32 kg Solitario Podlogar NURSING STAFF DEVELOPMENT COORDINATOR.MSWS Work Phone: [facility] 01-21-2022 09:03-0400 Diastolic blood pressure 80 mm[Hg] Solitario Podlogar NURSING STAFF DEVELOPMENT COORDINATOR.MSWS Work Phone: [facility] 01-21-2022 09:03-0400 Heart rate 80 /min Solitario Podlogar NURSING STAFF DEVELOPMENT COORDINATOR.MSWS Work Phone: [facility] 01-21-2022 09:03-0400 Respiratory rate 16 /min Solitario Podlogar NURSING STAFF DEVELOPMENT COORDINATOR.MSWS Work Phone: [facility] 01-21-2022 09:03-0400 Systolic blood pressure 122 mm[Hg] Solitario Podlogar NURSING STAFF DEVELOPMENT COORDINATOR.MSWS Work Phone: [facility] 05-03-2017 07:50-0400 BMI (Body Mass Index) 38.51 kg/m2 Alan Ugalde MD [email or web address] Work Phone: 05-03-2017 07:50-0400 Body Temperature 97.7 [degF] Alan Ugalde MD [email or web address] Work Phone: 05-03-2017 07:50-0400 BP Diastolic 74 mm[Hg] Alan Ugalde MD [email or web address] Work Phone: 05-03-2017 07:50-0400 BP Systolic 140 mm[Hg] Alan Ugalde MD [email or web address] Work Phone: 05-03-2017 07:50-0400 Height 175.26 cm Alan Ugalde MD [email or web address] Work Phone: 05-03-2017 07:50-0400 Pulse (Heart Rate) 77 /min Alan Ugalde MD [email or web address] Work Phone: 05-03-2017 07:50-0400 Respiratory Rate 20 /min Alan Ugalde MD [email or web address] Work Phone: 05-03-2017 07:50-0400 Weight 118.3 kg Alan Ugalde MD [email or web address] Work Phone: Encounters Encounter Date Encounter Type Care Provider Facility Start: 07-17-2023 End: 07-17-2023 Emergency department patient visit STEPHEN HENDRICKS MD Facility:[facility] Start: 07-17-2023 End: 07-17-2023 Emergency department patient visit STEPHEN HENDRICKS MD [facility] Start: 07-07-2023 End: 07-08-2023 ambulatory ERNESTINA CHAVEZ Facility:[facility] Start: 06-30-2023 ambulatory Gerhard Julio MD, PhD Work Phone: Orthopaedics Start: 06-22-2023 Refill Jorge [email or web address] MD Work Phone: Urology Procedures Date Procedure Procedure Detail Performing Clinician Start: 06-14-2023 Nerve conduction shena dies 5-6 studies Gerhard Julio MD, PhD Work Phone: Start: 03-30-2020 Lipid 1996 panel - S parker or Plasma Gerhard Julio MD, PhD Work Phone: Plan of Treatment Date Care Activity Detail Author Start: 01-07-2027 Urine microalbumin profile [facility] Start: 03-30-2025 Lipid 1996 panel - S parker or Plasma Lipid Screening [facility] Start: 03-30-2025 Lipid panel Lipid Screening [facility] Start: 03-30-2025 LIPID SCREEN LIPID SCREEN [facility] Start: 06-02-2024 Annual PCP Team As400 Operator david Disease Visit Annual PCP Team Chronic Disease Visit [facility] Start: 04-01-2024 DIABETES SCREEN DIABETES SCREEN [facility] Start: 04-01-2024 Diabetes Screening Diabetes Screenin g [facility] Start: 01-06-2024 ANNUAL PCP TEAM ASSOCIATE DEAN OF STUDENTS DAVID DISEASE VISIT ANNUAL PCP TEAM CHRONIC DISEASE VISIT [facility] Start: 05-19-2023 ANNUAL PCP TEAM ASSOCIATE DEAN OF STUDENTS DAVID DISEASE VISIT ANNUAL PCP TEAM CHRONIC DISEASE VISIT [facility] Start: 05-19-2023 BP CONTROLLED (<130/80) BP CONTROLLE D (<130/80) [facility] Start: 03-12-2023 Influenza vaccination [facility] Start: 01-26-2023 ANNUAL PCP TEAM ASSOCIATE DEAN OF STUDENTS DAVID DISEASE VISIT ANNUAL PCP TEAM CHRONIC DISEASE VISIT [facility] Start: 01-26-2023 BP CONTROLLED (<130/80) BP CONTROLLE D (<130/80) [facility] Start: 07-13-2023 ANNUAL PCP TEAM ASSOCIATE DEAN OF STUDENTS DAVID DISEASE VISIT ANNUAL PCP TEAM CHRONIC DISEASE VISIT [facility] Start: 01-08-2023 Influenza vaccination INFLUENZA (#1) [facility] Immunizations Immunization Date Immunization Notes Care Provider Brittney sutherland 04-01-2021 pneumococcal polysaccharide vaccine, 23 valent Ernestina Chavez MD Work Phone: [facility] 04-11-2016 TD(adult) unspecifie d formulation Ernestina Chavez MD Work Phone: [facility] 04-11-2016 tetanus and diphther ia toxoids, adsorbed, preservative free, for adult use (2 Lf of tetanus toxoid and 2 Lf of diphtheria toxoid) Ernestina Chavez MD Work Phone: [facility] Payers Date Payer Category Payer Private Health Insurance [facility] [employer] [id number] 2021-Present [phone] [address] [address] [place] [address] O [id number] 2021 Private Health Insurance [facility] [employer] [id number] 2021-Present [phone] [address] [address] [place] [address] O [id number] 2021 Private Health Insurance [facility] [employer] CHO[employer] [id number] 2021-Present [phone] [address] [address] [place] [address] O [id number] 2021 Unknown [id number] 1975 Unknown [id number] 1975 Unknown [id number] Unknown Social History Date Type Detail Facility Start: 03-29-2019 End: 05-19-2022 Tobacco smoking status NHIS Never smoked tobacco [facility] Start: 03-29-2019 End: 05-19-2022 Tobacco use and exposure Smokeless tobacco non-user [facility] Start: 01-21-2022 End: 06-30-2023 Alcohol intake Current drinker of alcohol (finding) [facility] Start: 01-21-2022 End: 09-29-2022 History SDOH Alcohol Frequency 5 [facility] Start: 01-21-2022 End: 09-29-2022 History SDOH Alcohol Std Drinks 3 [facility] Start: 01-21-2022 End: 09-29-2022 History SDOH Social Connections Get Together 2 [facility] Start: 01-21-2022 End: 09-29-2022 History SDOH Social Connections Hindu 1 [facility] Start: 01-21-2022 End: 09-29-2022 History SDOH Physical Activity DPW 7 [facility] Start: 06-25-2020 Education 14 [facility] Start: 1975 Sex Assigned At Not on file [facility] Start: 01-11-2022 End: 05-19-2022 Exposure to SARS-CoV-2 (event) Not sure [facility] Start: 09-29-2022 History SDOH Alcohol Binge 4 [facility] Start: 09-29-2022 End: 01-05-2023 History of Social function [facility] Start: 09-29-2022 End: 01-05-2023 Social connection and isolation panel [facility] Do you belong to any clubs or organizations such as yazidi groups, unions, fraternal or athletic groups, or school groups? No [facility] Are you now , , , , never or living with a partner? [facility] How often to you hav e a drink containing alcohol? 4 or more times a week [facility] How many standard dr inks containing alcohol do you have on a typical day? 3 or 4 [facility] How often do you hav e 6 or more drinks on 1 occasion? Weekly [facility] How hard is it for y ou to pay for the very basics like food, housing, medical care, and heating Not hard at all [facility] Do you feel stress - tense, restless, nervous, or anxious, or unable to sleep at night because your mind is troubled all the time - these days [OSQ] Very much [facility] (I/We) worried wheth er (my/our) food would run out before (I/we) got money to buy more. Never true [facility] Tobacco smoking status No Smokin g Status Entered [facility] Sex Assigned At Male [facility] Functional Status Date Assessment Result Facility 07-17-2023 Functional Status Independent [facility] 07-17-2023 Functional Status Standard Safet y ID band on, Allergy Band on, Safety level maintained [facility] Mental Status Date Assessment Result Facility 07-17-2023 Mental Status Oriented x 4 [facility] 07-17-2023 Mental Status [facility] Clinical Notes 01-21-2022 to 07-20-2023 Telephone Encounter - Misael Cruz Ma - 06/22/2023 7:36 AM Tae Gonzalez MD - 06/14/2023 1:38 PM ESTTelephone Encounter - Yenny Pantoja LPN - 06/09/2023 12:52 PM EST Note Date & Type Note Facility 07-20-2023 Note HNO ID: [id number] Author: MAKAYLA SEVILLA [facility] Service: ? Author Type: Therapist Type: Progress Notes Filed: 07/20/2023 13:22 Note Text: Behavioral Health Social Work Progress Note Patient identified for [facility] from: PCP Reason for referral: [facility] Assessment [facility] encounter type: Office Visit, Virtual Visit Attempts to Outreach: 2 attempts Referral made: Psychiatry - Internal Psychiatry-Internal referral type: Medication Management Patient Discharged?: Yes Patient reported that caregiver was able to meet their needs today?: N/A Patient no show/no call for his scheduled appointment. CORIN Lucero-S July 20, 2023 [facility] 07-17-2023 Hospital Discharg e instructions Patient Education 07/17/2023 16:52:35 Hypertension, To Be Confirmed High Blood Pressure, To Be Confirmed, No Treatment Your blood pressure today was higher than normal. Sometimes anxiety or pain can cause a temporary rise in blood pressure. It later returns to normal. Blood pressure that is high only one time doesn t mean that you have high blood pressure (hypertension). High blood pressure is a chronic illness. But you should have your blood pressure measured again within the next few days to find out if it s still high. Blood pressure measurements are given as 2 numbers. Systolic blood pressure is the upper number. This is the pressure when the heart contracts. Diastolic blood pressure is the lower number. This is the pressure when the heart relaxes between beats. You will see your blood pressure readings written together. For example, a person with a systolic pressure of 118 and a diastolic pressure of 78 will have 118/78 written in the medical record. Blood pressure is categorized as normal, elevated, or stage 1 or stage 2 high blood pressure: Normal blood pressure is systolic of less than 120 and diastolic of less than 80 (120/80) Elevated blood pressure is systolic of 120 to 129 and diastolic less than 80 Stage 1 high blood pressure is systolic is 130 to 139 or diastolic between 80 to 89 Stage 2 high blood pressure is when systolic is 140 or higher or the diastolic is 90 or higher Lifestyle changes such as weight loss, exercise, and quitting smoking, can help manage your blood pressure. Have your blood pressure checked regularly to be sure it is under control. Home care To track your blood pressure, your provider may ask you to come into the office at different times and on different days. If your healthcare provider asks you to check your readings at home, ask him or her what times of the day to test and for how many days. Before you leave the office, ask your provider to show you how to take your blood pressure and be sure to ask questions if you don't understand something. Consider buying an automatic blood pressure monitor. Ask your provider for a recommendation as well as the proper size cuff to fit your arm. You can buy blood pressure monitors at most pharmacies. The [place] [employer] recommends the following guidelines for home blood pressure monitoring: Don't smoke or drink coffee or other caffeinated drinks for 30 minutes before taking your blood pressure. Go to the bathroom before the test. Relax for 5 minutes before taking the measurement. Sit with your back supported (don't sit on a couch or soft chair); keep your feet on the floor uncrossed. Place your arm on a solid flat surface (like a table) with the upper part of the arm at heart level. Place the middle of the cuff directly above the bend of the elbow. Check the monitor's instruction manual for an illustration. Take multiple readings. When you measure, take 2 to 3 readings one minute apart and record all of the results. Take your blood pressure at the same time every day, or as your healthcare provider recommends. Record the date, time, and blood pressure reading. Take the record with you to your next medical appointment. If your blood pressure monitor has a built-in memory, simply take the monitor with you to your next appointment. Call your provider if you have several high readings. Don't be frightened by a single high blood pressure reading, but if you get several high readings, check in with your healthcare provider. Note: When blood pressure reaches a systolic (top number) of 180 or higher OR diastolic (bottom number) of 110 or higher, seek emergency medical treatment. Follow-up care Keep all of your follow up appointments. If your blood pressure is more than 120 over 80 on 2 out of 3 days, you will need to follow up with your healthcare provider for more evaluation and treatment. Don t put this off! High blood pressure can be treated. High blood pressure that s not treated raises your risk for heart attack, heart failure, and stroke. When to seek medical advice Call your healthcare provider right away if any of these occur: Blood pressure reaches a systolic (top number) of 180 or higher, OR diastolic (bottom number) of 110 or higher Chest pain or shortness of breath Severe headache Throbbing or rushing sound in the ears Nosebleed Sudden severe pain in your belly (abdomen) Extreme drowsiness, confusion, or fainting Dizziness or dizziness with spinning sensation (vertigo) Weakness of an arm or leg or one side of the face You have problems speaking or seeing [id number] [employer]. [address] [place] [address], [place] [address]. All rights reserved. This information is not intended as a substitute for professional medical care. Always follow your healthcare professional's instructions. 07/17/2023 16:52:26 Anxiety Reaction Anxiety Reaction Anxiety is the feeling we all get when we think something bad might happen. It is a normal response to stress and usually causes only a mild reaction. When anxiety becomes more severe, it can interfere with daily life. In some cases, you may not even be aware of what it is you re anxious about. There may also be a genetic link or it may be a learned behavior in the home. Both psychological and physical triggers cause stress reaction. It's often a response to fear or emotional stress, real or imagined. This stress may come from home, family, work, or social relationships. During an anxiety reaction, you may feel: Helpless Nervous Depressed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 Buspar. Take one tablet three times a day. Possible side effects include : dizziness, drowsiness, nausea, diarrhea and headache.Follow-up as scheduled in June. Solitario Trevino APRN.CNP documented in this encounter [facility] 06-02-2023 Note HNO ID: [id number] Author: Solitario Trevino APRN.CNP Service: ? Author Type: Nurse Practitioner Type: Progress Notes Filed: 06/02/2023 2:09 PM Note Text: 06/02/2023 Patient presents with: Anxiety SUBJECTIVE: This is a 48 year old, accompanied by , that is here today for Above Complaints. Last Wednesday went to ER for alcohol withdrawal. Patient reports he went cold turkey after years of drinking. Had been drinking 12 beers a day with liquor as well. Did not want to be admitted so he was given a short taper of librium. Completed taper of librium and feels better but he would like a possible refill for his anxiety. He reports he has had anxiety for years and drinking helped this. Admits he does smoke marijuana. Did not follow-up with his 180 appointment and does not think he needs any type of counseling. Denies SI, HI or insomnia PHQ9: 24 SCOOTER: 21 ER record reviewed PAST MEDICAL HISTORY Diagnosis Date Alcohol abuse Childhood asthma Class 2 obesity due to excess calories with body mass index (BMI) of 36.0 to 36.9 in adult Essential hypertension Hepatitis C Hepatitis C, chronic (HCC) Dr. Woodson History of marijuana use History of methamphetamine abuse (HCC) 2018 History of opioid abuse (HCC) Mixed hyperlipidemia ALLERGIES Shellfish Derived MEDICATIONS Current Outpatient Medications Medication Sig Tadalafil (CIALIS) 10 mg tablet Take 1 tablet by mouth as needed (prior sexual intercourse). No current facility-administered medications for this visit. Medications and allergies reviewed by this provider. SOCIAL HISTORY Social History Tobacco Use Smoking status: Never Smokeless tobacco: Never Substance Use Topics Alcohol use: Yes Alcohol/week: 7.0 - 8.0 standard drinks of alcohol Types: 7 - 8 Cans of Beer (12oz) per week Drug use: Not Currently Types: Amphetamines, Marijuana REVIEW OF SYSTEMS All other reviewed and negative other than HPI. OBJECTIVE: BP 135/86 Pulse 76 Resp 18 Wt 118 kg (260 lb 3.2 oz) SpO2 97% BMI 38.42 kg/m? . Vital signs reviewed by this provider. APPEARANCE Well appearing, alert, in no acute distress, well-hydrated, well nourished. EYES conjunctiva and sclera normal. HEART RRR with normal S1 and S2, no murmurs, no gallops, no JVD appreciated LUNG clear to auscultation. No wheezes, rhonchi or rales SKIN Skin color, texture, turgor normal, no suspicious rashes or lesions to exposed skin PSYCH: Posture and motor behavior: normal posture and motor behavior Dress, grooming, personal hygiene: normal dress and grooming Facial expression: good eye contact Speech: normal speech Mood: cheerful Coherency and relevance of thought: normal thought processes Memory: normal memory Hepatitis B Vaccine(1 of 3 - 3-dose series) Never done Covid-19 Vaccine(1) Never done BP Controlled (<130/80) Never done Colorectal Cancer Screening Never done Pneumococcal Vaccine(2 - PCV) due on 04/01/2022 Influenza Vaccine(1) Never done Diabetes Screening due on 04/01/2024 Annual PCP Team Chronic Disease Visit due on 06/02/2024 Lipid Screening due on 03/30/2025 DTaP,Tdap,Td Vaccine(2 - Td or Tdap) due on 01/07/2027 Depression Assessment Completed Hepatitis C Screening Completed HIV Screening Completed ASSESSMENT/PLAN: 1. Alcohol abuse - ICD9: 305.00, ICD10: F10.10 (primary diagnosis) - patient is agreeable to reschedule with 180- patient has phone number to call - handout for local counseling centers provided to patient 2. Anxiety and depression - ICD9: 300.00, 311, ICD10: F41.9, F32.A - Discussed concept of neurochemical imbalance wth depression/anxiety - Option of Medication use discussed - Risks/benefits of SSRIs - Common side effects - Sleep Hygeine - advised counseling to improve management of stressors - Instructed patient to contact office or [id number] after-hours promptly should condition worsen or any new symptoms appear. - Counseling Center [facility] and after hours crisis line - Juli faria phone number or - SERTRALINE 50 MG TABLET - HYDROXYZINE PAMOATE 25 MG CAPSULE- discussed with patient this medication may cause drowsiness so he should not drive or operate heavy machinery while taking. Also discussed he should drink alcohol with this medication, verbalizes understanding - DEPRESSION SCREENING/ASSESSMENT - follow-up in four weeks, sooner if needed Solitario Podlogar, [email or web address] Prescription instructions reviewed with patient as applicable. Patient advised if symptoms do not improve or if symptoms worsen sooner, to contact their primary care physician. Potential red flag symptoms discussed with the patient. Reviewed appropriate action plan to take if red flag symptoms occur. Patient agreeable to treatment plan. I spent a total of 30 minutes on the date of the service which included preparing to see (more content not included)... [facility] 04-21-2023 Note HNO ID: [id number] Author: Gerhard Julio MD, PhD Service: ? Author Type: Physician Type: Progress Notes Filed: 04/26/2023 7:32 PM Note Text: April 21, 2023 CHIEF COMPLAINT: R elbow, forearm and hand pain and numbness in ulnar distribution HPI: Ant Ji is a 47 year old RHD male who presents to clinic with R elbow, forearm and hand pain and numbness in ulnar distribution. States this has been going on for years, has gotten significantly worse over last year. Numbness has reached the point where he drops things because he has trouble maintaining grasp with digits 4 and 5. Has hx of R elbow fracture 20+ years ago. Notices the numbness gets worse with elbow flexion when bringing hand to head or using bench press. 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 First line therapy is NSAIDS, night splints to take pressure off the nerve at night, and elbow pads to prevent trauma to the nerve. EMG/NCS are helpful in determining severity of disease. Patients with conduction velocities less than 50 m/s are often counseled that surgery is a good option to prevent loss of muscle innervation and permanent loss of function. Ideally, an in situ decompression is performed to prevent further trauma to the nerve. However, if the nerve subluxes with elbow flexion after in situ release, then subfascial anterior transposition is performed. Patients who undergo in situ release are placed in a soft wrap for the first two weeks and then allowed to begin returning to activities as tolerated. Patients who undergo transposition are placed in splint for two weeks and then are allowed to begin using the arm, but are counseled that it will be a slower recovery due to pain and swelling. Recovery of function from cubital tunnel release is often slower than from carpal tunnel release and is often never perfect despite our best efforts. No guarantees or warranties were provided; he voiced understanding of the risks and benefits and wishes to proceed with our agreed upon plan. - Will order EMG for cubital tunnel syndrome - Will plan to see patient back in office after EMG prior to surgery to ensure nothing else needed - Will schedule surgery today (consent signed in office), can adjust based on EMG results as needed OBJECTIVE: There were no vitals filed for this visit. There is no height or weight on file to calculate BMI. General: NAD Eyes: Pupils not pinpointed, not overly dilated, anicteric Neck: Full range of motion Cardiovascular: Palpable pulse and brisk capillary refill (<2 sec) to all fingers Lymphatic: Inspection of the arm/hand reveals no lymphedema and palpation of epitrochlear nodes is unremarkable. Respiratory: Respirations even and unlabored, no audible wheezing Integumentary: Inspection of skin reveals no breaks or obvious lesions except for those noted below. Neuro: Intact sensation to light touch over the median, ulnar, and radial nerve distributions. Psychiatric: No obvious anxiety, well kempt, normal affect. Appropriate response to pain. Musculoskeletal: Able to flex and extend all fingers at the DIP and PIP. Able to retropulse the thumb, abduct all fingers against resistance. Decreased sensation in ulnar distribution of left hand. +Tinel test at elbow over cubital tunnel. IMAGING: Radiographs of the left elbow were obtained on 09/29/22 which were personally reviewed by me and demonstrate arthritis of left elbow with loose bodies. MRI on 10/06/22 of L elbow showing similar findings with increased signal around ulnar nerve at elbow Supporting Subjective Information Below: Past Medical History: PAST MEDICAL HISTORY Diagnosis Date Alcohol abuse Childhood asthma Class 2 obesity due to excess calories with body mass index (BMI) of 36.0 to 36.9 in adult Essential hypertension Hepatitis C Hepatitis C, chronic (HCC) Dr. Woodson History of marijuana use History of methamphetamine abuse (HCC) 2018 History of opioid abuse (HCC) Mixed hyperlipidemia Past Surgical History: PAST SURGICAL HISTORY Procedure Laterality Date APPENDECTOMY HX 1986 FINGER SURGERY HX Left 03/2016 index finger infection debridement PAST SURGICAL HISTORY OF Left cyst excision for left side of neck Family History: FAMILY HISTORY Problem Relati (more content not included)... [facility] 04-21-2023 History of Presen t illness Narrative April 21, 2023 CHIEF COMPLAINT: R elbow, forearm and hand pain and numbness in ulnar distribution HPI: Ant Ji is a 47 year old RHD male who presents to clinic with R elbow, forearm and hand pain and numbness in ulnar distribution. States this has been going on for years, has gotten significantly worse over last year. Numbness has reached the point where he drops things because he has trouble maintaining grasp with digits 4 and 5. Has hx of R elbow fracture 20+ years ago. Notices the numbness gets worse with elbow flexion when bringing hand to head or using bench press. 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 First line therapy is NSAIDS, night splints to take pressure off the nerve at night, and elbow pads to prevent trauma to the nerve. EMG/NCS are helpful in determining severity of disease. Patients with conduction velocities less than 50 m/s are often counseled that surgery is a good option to prevent loss of muscle innervation and permanent loss of function. Ideally, an in situ decompression is performed to prevent further trauma to the nerve. However, if the nerve subluxes with elbow flexion after in situ release, then subfascial anterior transposition is performed. Patients who undergo in situ release are placed in a soft wrap for the first two weeks and then allowed to begin returning to activities as tolerated. Patients who undergo transposition are placed in splint for two weeks and then are allowed to begin using the arm, but are counseled that it will be a slower recovery due to pain and swelling. Recovery of function from cubital tunnel release is often slower than from carpal tunnel release and is often never perfect despite our best efforts. No guarantees or warranties were provided; he voiced understanding of the risks and benefits and wishes to proceed with our agreed upon plan. - Will order EMG for cubital tunnel syndrome - Will plan to see patient back in office after EMG prior to surgery to ensure nothing else needed - Will schedule surgery today (consent signed in office), can adjust based on EMG results as needed OBJECTIVE: There were no vitals filed for this visit. There is no height or weight on file to calculate BMI. General: NAD Eyes: Pupils not pinpointed, not overly dilated, anicteric Neck: Full range of motion Cardiovascular: Palpable pulse and brisk capillary refill (<2 sec) to all fingers Lymphatic: Inspection of the arm/hand reveals no lymphedema and palpation of epitrochlear nodes is unremarkable. Respiratory: Respirations even and unlabored, no audible wheezing Integumentary: Inspection of skin reveals no breaks or obvious lesions except for those noted below. Neuro: Intact sensation to light touch over the median, ulnar, and radial nerve distributions. Psychiatric: No obvious anxiety, well kempt, normal affect. Appropriate response to pain. Musculoskeletal: Able to flex and extend all fingers at the DIP and PIP. Able to retropulse the thumb, abduct all fingers against resistance. Decreased sensation in ulnar distribution of left hand. +Tinel test at elbow over cubital tunnel. IMAGING: Radiographs of the left elbow were obtained on 09/29/22 which were personally reviewed by me and demonstrate arthritis of left elbow with loose bodies. MRI on 10/06/22 of L elbow showing similar findings with increased signal around ulnar nerve at elbow Supporting Subjective Information Below: Past Medical History: PAST MEDICAL HISTORY Diagnosis Date Alcohol abuse Childhood asthma Class 2 obesity due to excess calories with body mass index (BMI) of 36.0 to 36.9 in adult Essential hypertension Hepatitis C Hepatitis C, chronic (HCC) Dr. Woodson History of marijuana use History of methamphetamine abuse (HCC) 2018 History of opioid abuse (HCC) Mixed hyperlipidemia Past Surgical History: PAST SURGICAL HISTORY Procedure Laterality Date APPENDECTOMY HX 1986 FINGER SURGERY HX Left 03/2016 index finger infection debridement PAST SURGICAL HISTORY OF Left cyst excision for left side of neck Family History: FAMILY HISTORY Problem Relation Age of Onset Alcohol abuse Mother Diabetes Mother Hepatitis C Mother Pancreatic Cancer Father Lung Cancer Paternal Grandmother Aneurysm Paternal Grandfather Lung Cancer Paternal Grandfather Cerebral palsy Daughter No Known Problems Daughter No Known Problems Daughter No Known Problems Daughter Schizophrenia Son No Known Problems Son No Known Problems Son No Known Problems Son Medications: Current Outpatient Medications Medication Sig Dispense Refill Tadalafil (CIALIS) 10 mg tablet Take 1 tablet by mouth as needed (prior sexual intercourse). 30 tablet 4 No current facility-administered medications for this visit. Allergies: ALLERGIES Allergen Reactions Shellfish Derived Swelling Mouth and throat swelling, hives ROS: General (negative for fatigue) HEENT (negative for headache, earache, recent vision changes, sinus pain, sore throat) Respiratory (no recent shortness of breath, hemoptysis) CV (negative for chest tightness, palpitations) GI (negative for change in bowel habits) Hematologic (no spontaneous bleeding, bruising) Endocrine (no heat or cold intolerance) Referring Physician: Kenia Cain [phone] Nadine Dickerson MD Orthopaedic Surgery PGY2 ATTENDING NOTE: I personally performed a history and physical examination on Ant Ji to verify the one performed by Nadine Dickerson MD. I reviewed their findings, plan and note, and have made changes above as needed so that I agree with the documentation. I discussed the plan with the patient. Bijan Julio MD, PhD Hand & Upper Extremity Orthopaedic Staff Surgeon documented in this encounter [facility] 01-05-2023 Note HNO ID: [id number] Author: Ernestina Chavez MD Service: ? Author Type: Physician Type: Progress Notes Filed: 01/05/2023 7:39 PM Note Text: Chief Complaint Patient presents with: Alcohol Problem: Patient reports DT's when waking up-had been off alcohol for 9-10 months and relapsed about 18 months ago HPI Ant Ji is a 47 year old male who presents here today for Above Complaints. Accompanied today by his . Patient here today to get help with alcohol abuse. States that he is drinking about 15 tall boy beers per day for the last 18 months. When he wakes up in the morning he needs to drink a beer to control his shaking. Has not been hospitalized for his drinking. He has not gone more than 12 hours without drinking in the last 18 months. Smokes marijuana on a daily basis as well. Denies other illicit drugs. Past medical history, appointments, medications, allergies reviewed. Previous Medical History PAST MEDICAL HISTORY Diagnosis Date Alcohol abuse Childhood asthma Class 2 obesity due to excess calories with body mass index (BMI) of 36.0 to 36.9 in adult Essential hypertension Hepatitis C Hepatitis C, chronic (HCC) Dr. Woodson History of marijuana use History of methamphetamine abuse (HCC) 2017 History of opioid abuse (HCC) Mixed hyperlipidemia Previous Surgical History PAST SURGICAL HISTORY Procedure Laterality Date APPENDECTOMY HX 1986 FINGER SURGERY HX Left 03/2016 index finger infection debridement PAST SURGICAL HISTORY OF Left cyst excision for left side of neck Family History FAMILY HISTORY Problem Relation Age of Onset Alcohol abuse Mother Diabetes Mother Hepatitis C Mother Pancreatic Cancer Father Lung Cancer Paternal Grandmother Aneurysm Paternal Grandfather Lung Cancer Paternal Grandfather Cerebral palsy Daughter No Known Problems Daughter No Known Problems Daughter No Known Problems Daughter Schizophrenia Son No Known Problems Son No Known Problems Son No Known Problems Son Patient Allergies ALLERGIES Allergen Reactions Shellfish Derived Swelling Mouth and throat swelling, hives Current Medications Current Outpatient Medications on File Prior to Visit Medication Sig Tadalafil (CIALIS) 10 mg tablet Take 1 tablet by mouth as needed (prior sexual intercourse). No current facility-administered medications on file prior to visit. Social History Social History Tobacco Use Smoking status: Never Smokeless tobacco: Never Substance Use Topics Alcohol use: Yes Alcohol/week: 7.0 - 8.0 standard drinks Types: 7 - 8 Cans of Beer (12oz) per week Drug use: Not Currently Types: Amphetamines, Marijuana Review of Symptoms REVIEW OF SYSTEMS GENERAL: No weight loss, malaise or fevers RESPIRATORY: Negative for cough, hemoptysis, wheezing, COPD, dyspnea or shortness of breath CARDIOVASCULAR: Negative for chest pain, leg swelling, hypertension, CHF or palpitations EXAM: BP 136/76 Pulse 84 Resp 18 Wt 119.9 kg (264 lb 6.4 oz) SpO2 95% BMI 39.05 kg/m? General Appearance: Well appearing, alert, in no acute distress, well-hydrated, well nourished.. Skin: Skin color, texture, turgor normal, no suspicious rashes or lesions. Lungs: Lungs clear to auscultation. No wheezing, rhonchi, rales.. Heart: Negative findings: no murmurs, clicks, or gallops, Positive findings: irregular rhythm. Abdomen: Normal abdominal exam, Abdomen soft, non-tender. Bowel sounds normal. No masses, organomegaly. Health Maintenance List HEPATITIS B(1 of 3 - 3-dose series) Never done COVID-19 VACCINE(1) Never done BP CONTROLLED (<130/80) Never done COLORECTAL CANCER SCREENING Never done PNEUMOCOCCAL(2 - PCV) due on 04/01/2022 DEPRESSION ASSESSMENT Never done INFLUENZA(Season Ended) due on 03/12/2023 ANNUAL PCP TEAM CHRONIC DISEASE VISIT due on 05/19/2023 DIABETES SCREEN due on 04/01/2024 LIPID SCREEN due on 03/30/2025 DTAP,TDAP,TD(2 - Td or Tdap) due on 01/07/2027 HEPATITIS C SCREENING Completed HIV SCREENING Completed Data reviewed EKG: sinus rhythm with PVCs at 78 bpm. ASSESSMENT/PLAN: 1. Alcohol abuse - ICD9: 305.00, ICD10: F10.10 (primary diagnosis) Discussed need for inpatient detox to prevent DTs. [facility] for [facility] program as well as 180 on discharge. Advised to continue drinking until he gets into the program so he does not go into withdrawals or DTs. Discussed skilled nursing damage to his body with continued alcohol abuse. Will follow up on discharge. - COMP METABOLIC PANEL - CBC + DIFF 2. Irregular heart rhythm - ICD9: 427.9, ICD10: I49.9 Benign PVCs on ekg. Patient asymptomatic. Will monitor. - ECG COMPLETE Ernestina Chavez MD [facility] 01-05-2023 History of Presen t illness Narrative Chief Complaint Patient presents with: Alcohol Problem: Patient reports DT's when waking up-had been off alcohol for 9-10 months and relapsed about 18 months ago HPI Ant Ji is a 47 year old male who presents here today for Above Complaints. Accompanied today by his . Patient here today to get help with alcohol abuse. States that he is drinking about 15 tall boy beers per day for the last 18 months. When he wakes up in the morning he needs to drink a beer to control his shaking. Has not been hospitalized for his drinking. He has not gone more than 12 hours without drinking in the last 18 months. Smokes marijuana on a daily basis as well. Denies other illicit drugs. Past medical history, appointments, medications, allergies reviewed. Previous Medical History PAST MEDICAL HISTORY Diagnosis Date Alcohol abuse Childhood asthma Class 2 obesity due to excess calories with body mass index (BMI) of 36.0 to 36.9 in adult Essential hypertension Hepatitis C Hepatitis C, chronic (HCC) Dr. Woodson History of marijuana use History of methamphetamine abuse (HCC) 2017 History of opioid abuse (HCC) Mixed hyperlipidemia Previous Surgical History PAST SURGICAL HISTORY Procedure Laterality Date APPENDECTOMY HX 1986 FINGER SURGERY HX Left 03/2016 index finger infection debridement PAST SURGICAL HISTORY OF Left cyst excision for left side of neck Family History FAMILY HISTORY Problem Relation Age of Onset Alcohol abuse Mother Diabetes Mother Hepatitis C Mother Pancreatic Cancer Father Lung Cancer Paternal Grandmother Aneurysm Paternal Grandfather Lung Cancer Paternal Grandfather Cerebral palsy Daughter No Known Problems Daughter No Known Problems Daughter No Known Problems Daughter Schizophrenia Son No Known Problems Son No Known Problems Son No Known Problems Son Patient Allergies ALLERGIES Allergen Reactions Shellfish Derived Swelling Mouth and throat swelling, hives Current Medications Current Outpatient Medications on File Prior to Visit Medication Sig Tadalafil (CIALIS) 10 mg tablet Take 1 tablet by mouth as needed (prior sexual intercourse). No current facility-administered medications on file prior to visit. Social History Social History Tobacco Use Smoking status: Never Smokeless tobacco: Never Substance Use Topics Alcohol use: Yes Alcohol/week: 7.0 - 8.0 standard drinks Types: 7 - 8 Cans of Beer (12oz) per week Drug use: Not Currently Types: Amphetamines, Marijuana Review of Symptoms REVIEW OF SYSTEMS GENERAL: No weight loss, malaise or fevers RESPIRATORY: Negative for cough, hemoptysis, wheezing, COPD, dyspnea or shortness of breath CARDIOVASCULAR: Negative for chest pain, leg swelling, hypertension, CHF or palpitations EXAM: BP 136/76 Pulse 84 Resp 18 Wt 119.9 kg (264 lb 6.4 oz) SpO2 95% BMI 39.05 kg/m General Appearance: Well appearing, alert, in no acute distress, well-hydrated, well nourished.. Skin: Skin color, texture, turgor normal, no suspicious rashes or lesions. Lungs: Lungs clear to auscultation. No wheezing, rhonchi, rales.. Heart: Negative findings: no murmurs, clicks, or gallops, Positive findings: irregular rhythm. Abdomen: Normal abdominal exam, Abdomen soft, non-tender. Bowel sounds normal. No masses, organomegaly. Health Maintenance List HEPATITIS B(1 of 3 - 3-dose series) Never done COVID-19 VACCINE(1) Never done BP CONTROLLED (<130/80) Never done COLORECTAL CANCER SCREENING Never done PNEUMOCOCCAL(2 - PCV) due on 04/01/2022 DEPRESSION ASSESSMENT Never done INFLUENZA(Season Ended) due on 03/12/2023 ANNUAL PCP TEAM CHRONIC DISEASE VISIT due on 05/19/2023 DIABETES SCREEN due on 04/01/2024 LIPID SCREEN due on 03/30/2025 DTAP,TDAP,TD(2 - Td or Tdap) due on 01/07/2027 HEPATITIS C SCREENING Completed HIV SCREENING Completed Data reviewed EKG: sinus rhythm with PVCs at 78 bpm. ASSESSMENT/PLAN: 1. Alcohol abuse - ICD9: 305.00, ICD10: F10.10 (primary diagnosis) Discussed need for inpatient detox to prevent DTs. Given [facility]tion for [facility] program as well as 180 on discharge. Advised to continue drinking until he gets into the program so he does not go into withdrawals or DTs. Discussed skilled nursing damage to his body with continued alcohol abuse. Will follow up on discharge. - COMP METABOLIC PANEL - CBC + DIFF 2. Irregular heart rhythm - ICD9: 427.9, ICD10: I49.9 Benign PVCs on ekg. Patient asymptomatic. Will monitor. - ECG COMPLETE Ernestina Chavez MD documented in this encounter [facility] 01-05-2023 Miscellaneous Notes Patient called requesting the following refill. Requested Prescriptions Pending Prescriptions Disp Refills Tadalafil (CIALIS) 10 mg tablet 30 tablet 4 Sig: Take 1 tablet by mouth as needed (prior sexual intercourse). Patient last appointment: 09/01/2022 Patient Phone numbers: [phone] (home) Request is for script(s) to be escript to pharmacy. Ant Gusman MA documented in this encounter [facility] 10-09-2022 Note HNO ID: [id number] Author: Demian Webb PA-C Service: ? Author Type: Physician [employer] Type: Progress Notes Filed: 10/09/2022 3:51 PM Note Text: AMBULATORY TELEPHONE VISIT Ant Ji has consented to this telephone encounter. I have communicated my name and active licensure. The patient's identity and physical location were verified at the time of this visit. Either the patient or their legal parts counter representative has been informed of the risks and benefits of -- and alternatives to -- treatment through a remote evaluation and consents to proceed with the evaluation remotely. This plan is discussed at initial appointment and phone call appointments to discuss results is the agreed upon method rather than an in person appointment. Persons Present: patient Chief Complaint/Reason: Right elbow pain, MRI results HPI: Ant was originally evaluated by myself and had clinical concerns for surgical issue involving his elbow due to limitations in range of motion, pain as well as ulnar nerve findings on exam. MRI shows degenerative arthritis with possible intra-articular loose bodies as well as ulnar neuropathy with medial subluxation with findings consistent with flexor carpi ulnaris muscle denervation Data Reviewed: MRI right elbow Assessment: (M24.021) Loose body in elbow joint, right (primary encounter diagnosis) (G56.21) Ulnar neuropathy of right upper extremity (M19.021) Osteoarthritis of right elbow, unspecified osteoarthritis type Plan: I will send recommended follow-up instructions via [employer] message. I believe he will benefit from seeing an upper extremity surgeon due to the level of arthritis, loose bodies as well as the ulnar neuropathy with subluxation. Total Time Spent: 6 minutes Demian Webb PA-C [facility] 10-09-2022 History of Presen t illness Narrative AMBULATORY TELEPHONE VISIT Ant Ji has consented to this telephone encounter. I have communicated my name and active licensure. The patient's identity and physical location were verified at the time of this visit. Either the patient or their legal parts counter representative has been informed of the risks and benefits of -- and alternatives to -- treatment through a remote evaluation and consents to proceed with the evaluation remotely. This plan is discussed at initial appointment and phone call appointments to discuss results is the agreed upon method rather than an in person appointment. Persons Present: patient Chief Complaint/Reason: Right elbow pain, MRI results HPI: Ant was originally evaluated by myself and had clinical concerns for surgical issue involving his elbow due to limitations in range of motion, pain as well as ulnar nerve findings on exam. MRI shows degenerative arthritis with possible intra-articular loose bodies as well as ulnar neuropathy with medial subluxation with findings consistent with flexor carpi ulnaris muscle denervation Data Reviewed: MRI right elbow Assessment: (M24.021) Loose body in elbow joint, right (primary encounter diagnosis) (G56.21) Ulnar neuropathy of right upper extremity (M19.021) Osteoarthritis of right elbow, unspecified osteoarthritis type Plan: I will send recommended follow-up instructions via [employer] message. I believe he will benefit from seeing an upper extremity surgeon due to the level of arthritis, loose bodies as well as the ulnar neuropathy with subluxation. Total Time Spent: 6 minutes Demian Webb PA-C documented in this encounter [facility] 10-06-2022 Note HNO ID: [id number] Author: RT Derrick(R) Service: ? Author Type: Technologist Type: Progress Notes Filed: 10/06/2022 7:49 AM Note Text: Radiology Service Progress Note PATIENT NAME: Ant Ji DATE OF SERVICE: October 06, 2022 TIME: 7:49 AM PATIENT IDENTITY VERIFICATION COMPLETED USING TWO (2) IDENTIFIERS: Name and Date of confirmed by patient verbally. FALL SCREENING: Has the patient had 2 falls in the last year or 1 fall with injury or currently using an Ambulatory Assistive Device (Walker, Cane, Wheelchair, Crutches, etc.)? No PATIENT GENDER DATA: Male PATIENT RELEVANT IMPLANT DATA REVIEWED: Yes RADIOLOGY DEPARTMENT: MR; Exam(s) Completed: Upper MSK: Elbow, right PERIPHERAL IV DATA: Not applicable SIGNED BY: RT Derrick(R) October 06, 2022 7:[address] [facility] 10-01-2022 Note HNO ID: [id number] Author: Demian Webb PA-C Service: ? 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 [employer] as well as does regular strength activities including weightlifting and states that he was reacting to heavier weight while doing bench press when he felt a pop and discomfort in the elbow and since then has had limited range of motion in extension as well as discomfort from the medial elbow with numbness and tingling radiating into the fourth and fifth digit causing persistent neuropathy along the ulnar dermatome States that he still been active but has to cut back significantly on his weights because any type of heavy weight causes worsening discomfort in the elbow Is also concerned because of the limitations with range of motion and extension secondary to mechanical restrictions as well as pain Denies taking medications for this and states that he is a medication free person REVIEW OF SYMPTOMS: Constitutional: patient denies any recent fever or significant change in weight Gastrointestinal: patient denies any current abdominal discomfort Musculoskeletal: as noted in the HPI Neurologic: as noted in the HPI SOCIAL HISTORY: Tobacco Use: Never ALLERGIES: ALLERGIES Allergen Reactions Shellfish Derived Swelling Mouth and throat swelling, hives PAST MEDICAL HISTORY: PAST MEDICAL HISTORY Diagnosis Date Alcohol abuse Childhood asthma Class 2 obesity due to excess calories with body mass index (BMI) of 36.0 to 36.9 in adult Essential hypertension Hepatitis C Hepatitis C, chronic (HCC) Dr. Woodson History of marijuana use History of methamphetamine abuse (HCC) 2018 History of opioid abuse (HCC) Mixed hyperlipidemia PHYSICAL EXAMINATION: Patient's vitals and nursing notes were reviewed. Vitals: There were no vitals taken for this visit. Skin: Skin color, texture, turgor normal, no suspicious rashes or lesions noted Cardiovascular: no signs of upper or lower extremity edema Psychiatric: mood and affect are appropriate, patient is oriented to time, place and person Neurologic: sensation is grossly intact Lymphatic: no asymetric limb swelling noted General Appearance: Well appearing, alert, in no acute distress, well-hydrated, and well nourished Respiratory: no respiratory distress, no audible wheezing, no labored breathing, symmetric thoracic excursion Musculoskeletal Examination: Range of motion: elbow extension restriction of 10 degrees Muscle strength: normal muscle strength testing of the elbow and wrist 5/5 in all aspects Neck exam: normal active and passive ROM and normal muscle strength testing Shoulder exam: normal active and passive ROM and normal muscle strength testing Lateral epicondyle palpation: no tenderness to palpation over the common extensor tendon Medial epicondyle palpation: painful to palpation over the common flexor tendon proximal to the medial epicondyle and palpation reproduces the patient's presenting symptoms Radial tunnel palpation: no tenderness to palpation Resisted wrist extension: negative for pain and negative for weakness Schillberg test (resisted middle finger extension): negative for pain and negative for weakness Collateral ligament testing: no ligamentous laxity noted of the UCL or RCL Cubital tunnel: Tinel's sign positive and localized cubital swelling noted IMAGING: Final results and radiologist's interpretation, available in the [facility] health record. Images were reviewed with the patient/family members in the office today. My personal interpretation of the performed imaging is chronic degenerative changes. CLINICAL IMPRESSION / ASSESSMENT: (S57.171A) Elbow injury, right, initial encounter (primary encounter diagnosis) (G56.21) Ulnar neuropathy of right upper extremity (M25.621) Decreased range of motion of elbow, right (M25.521) Right elbow pain (S59.901A) Injury of right elbow, initial encounter RECOMMENDATION / PLAN: Ant has arthritic changes seen on x-ray and along with his acute onset of pain with a mechanical pop I have clinical concern for possible loose body in the elbow restricting his range of motion in extension. He also has tenderness and a positive Tinel's sign over the ulnar nerve with subjective complaints of numbness and tingling into the fourth and fifth digit constantly. An MRI has been ord (more content not included)... [facility] 09-29-2022 Note HNO ID: [id number] Author: RT Immanuel(R) Service: Radiology Author Type: Technologist Type: Progress Notes Filed: 09/29/2022 6:44 PM Note Text: Radiology Service Progress Note PATIENT NAME: Ant Ji DATE OF SERVICE: September 29, 2022 TIME: 6:36 PM PATIENT IDENTITY VERIFICATION COMPLETED USING TWO (2) IDENTIFIERS: Name and Date of confirmed by patient verbally. FALL SCREENING: Has the patient had 2 falls in the last year or 1 fall with injury or currently using an Ambulatory Assistive Device (Walker, Cane, Wheelchair, Crutches, etc.)? No PATIENT GENDER DATA: Male PATIENT RELEVANT IMPLANT DATA REVIEWED: Yes RADIOLOGY DEPARTMENT: General X-ray: Exam(s) Completed: Upper Extremity X-Ray(s): Elbow, right PERIPHERAL IV DATA: Not applicable SIGNED BY: RT Immanuel(R) September 29, 2022 6:[address] [facility] 09-29-2022 Note HNO ID: [id number] Author: Kenia Cain APRN.MSWS Service: ? Author Type: Nurse Practitioner Type: Progress Notes Filed: 09/29/2022 7:25 PM Note Text: Subjective Patient came in with complaints of right elbow pain. Patient says about 3 weeks ago he was lifting weights and felt something snap. Patient says its been hurting pretty consistent for 3 weeks. Patient says he does have some slight numbness in the last couple fingers. Denies any loss of range of motion but says it is very painful to straighten his elbow out completely. The history is provided by the patient. No speech/language therapist was used. Review of Systems Constitutional: Negative. Skin: Negative. Objective Physical Exam Constitutional: Appearance: Normal appearance. Pulmonary: Effort: Pulmonary effort is normal. Musculoskeletal: Arms: Comments: [place] area patient says has a shooting pain sometimes when he lifts weights. Blue area is where it hurts when palpated. And numbness is in the purple area. Neurological: Mental Status: He is alert. PAST MEDICAL HISTORY Diagnosis Date Alcohol abuse Childhood asthma Class 2 obesity due to excess calories with body mass index (BMI) of 36.0 to 36.9 in adult Essential hypertension Hepatitis C Hepatitis C, chronic (HCC) Dr. Woodson History of marijuana use History of methamphetamine abuse (HCC) 2018 History of opioid abuse (HCC) Mixed hyperlipidemia PAST SURGICAL HISTORY Procedure Laterality Date APPENDECTOMY HX 1986 FINGER SURGERY HX Left 03/2016 index finger infection debridement PAST SURGICAL HISTORY OF Left cyst excision for left side of neck ALLERGIES Shellfish Derived MEDICATIONS Tadalafil (CIALIS) 10 mg tablet Take 1 tablet by mouth as needed (prior sexual intercourse). FAMILY HISTORY Problem Relation Age of Onset Alcohol abuse Mother Diabetes Mother Hepatitis C Mother Pancreatic Cancer Father Lung Cancer Paternal Grandmother Aneurysm Paternal Grandfather Lung Cancer Paternal Grandfather Cerebral palsy Daughter No Known Problems Daughter No Known Problems Daughter No Known Problems Daughter Schizophrenia Son No Known Problems Son No Known Problems Son No Known Problems Son Social History Tobacco Use Smoking status: Never Smokeless tobacco: Never Substance Use Topics Alcohol use: Yes Alcohol/week: 7.0 - 8.0 standard drinks Types: 7 - 8 Cans of Beer (12oz) per week Drug use: Not Currently Types: Amphetamines, Marijuana ASSESSMENT/PLAN: 1. Pain - ICD9: 780.96, ICD10: R52 - XR ELBOW SPECIAL VIEWS AP/LAT/OTHER RIGHT - CONSULT TO ORTHOPAEDICS Has a follow-up with orthopedics on due to pain for 3 weeks. For further testing. Patient will rest and ice until then. Was okay with this care plan. Kenia Cain APRN.[facility] 09-29-2022 History of Presen t illness Narrative Images from the original note were not included. Subjective Patient came in with complaints of right elbow pain. Patient says about 3 weeks ago he was lifting weights and felt something snap. Patient says its been hurting pretty consistent for 3 weeks. Patient says he does have some slight numbness in the last couple fingers. Denies any loss of range of motion but says it is very painful to straighten his elbow out completely. The history is provided by the patient. No speech/language therapist was used. Review of Systems Constitutional: Negative. Skin: Negative. Objective Physical Exam Constitutional: Appearance: Normal appearance. Pulmonary: Effort: Pulmonary effort is normal. Musculoskeletal: Arms: Comments: [place] area patient says has a shooting pain sometimes when he lifts weights. Blue area is where it hurts when palpated. And numbness is in the purple area. Neurological: Mental Status: He is alert. PAST MEDICAL HISTORY Diagnosis Date Alcohol abuse Childhood asthma Class 2 obesity due to excess calories with body mass index (BMI) of 36.0 to 36.9 in adult Essential hypertension Hepatitis C Hepatitis C, chronic (HCC) Dr. Woodson History of marijuana use History of methamphetamine abuse (HCC) 2018 History of opioid abuse (HCC) Mixed hyperlipidemia PAST SURGICAL HISTORY Procedure Laterality Date APPENDECTOMY HX 1986 FINGER SURGERY HX Left 03/2016 index finger infection debridement PAST SURGICAL HISTORY OF Left cyst excision for left side of neck ALLERGIES Shellfish Derived MEDICATIONS Tadalafil (CIALIS) 10 mg tablet Take 1 tablet by mouth as needed (prior sexual intercourse). FAMILY HISTORY Problem Relation Age of Onset Alcohol abuse Mother Diabetes Mother Hepatitis C Mother Pancreatic Cancer Father Lung Cancer Paternal Grandmother Aneurysm Paternal Grandfather Lung Cancer Paternal Grandfather Cerebral palsy Daughter No Known Problems Daughter No Known Problems Daughter No Known Problems Daughter Schizophrenia Son No Known Problems Son No Known Problems Son No Known Problems Son Social History Tobacco Use Smoking status: Never Smokeless tobacco: Never Substance Use Topics Alcohol use: Yes Alcohol/week: 7.0 - 8.0 standard drinks Types: 7 - 8 Cans of Beer (12oz) per week Drug use: Not Currently Types: Amphetamines, Marijuana ASSESSMENT/PLAN: 1. Pain - ICD9: 780.96, ICD10: R52 - XR ELBOW SPECIAL VIEWS AP/LAT/OTHER RIGHT - CONSULT TO ORTHOPAEDICS Has a follow-up with orthopedics on due to pain for 3 weeks. For further testing. Patient will rest and ice until then. Was okay with this care plan. Kenia Cain APRN.MSWS documented in this encounter [facility] 09-01-2022 Note HNO ID: [id number] Author: Jorge Cormier Jr., MD Service: ? Author Type: Physician Type: Progress Notes Filed: 09/01/2022 1:38 PM Note Text: ESTABLISHED PATIENT OFFICE VISIT HPI Ant Ji is a 47 year old male who presents refer for penile abnormality. Has been there since . Having issues and pain with intercourse. Has penile skin bridge on dorsal surface. No LUTS. Does use cialis for ED. Works well. No fever. No uti. 09/01/22 - sp excision penile skin bridge. No pain. Doing well. Says healed up well. No fever. No luts. No uti. LAB: Creatinine Date Value Ref Range Status 04/01/2021 0.95 0.73 - 1.22 mg/dL Final No results found for: PSA No results found for: UGLUC, UBILI, UKET, SPGR, UHB, UPH, UPROT, UROBIL, NITRITES, UWBC, UCOLAP MEDICATIONS: Tadalafil (CIALIS) 10 mg tablet Take 1 tablet by mouth as needed (prior sexual intercourse). REVIEW OF SYSTEMS Review of Systems Constitutional: Negative. Respiratory: Negative. Cardiovascular: Negative. Gastrointestinal: Negative. Genitourinary: Negative. Skin: Negative. Neurological: Negative. Psychiatric/Behavioral: Negative. HISTORIES PAST MEDICAL HISTORY Diagnosis Date Alcohol abuse Childhood asthma Class 2 obesity due to excess calories with body mass index (BMI) of 36.0 to 36.9 in adult Essential hypertension Hepatitis C Hepatitis C, chronic (HCC) Dr. Woodson History of marijuana use History of methamphetamine abuse (HCC) 2018 History of opioid abuse (HCC) Mixed hyperlipidemia FAMILY HISTORY Problem Relation Age of Onset Alcohol abuse Mother Diabetes Mother Hepatitis C Mother Pancreatic Cancer Father Lung Cancer Paternal Grandmother Aneurysm Paternal Grandfather Lung Cancer Paternal Grandfather Cerebral palsy Daughter No Known Problems Daughter No Known Problems Daughter No Known Problems Daughter Schizophrenia Son No Known Problems Son No Known Problems Son No Known Problems Son SOCIAL HISTORY Social History Tobacco Use Smoking status: Never Smokeless tobacco: Never Substance Use Topics Alcohol use: Yes Alcohol/week: 7.0 - 8.0 standard drinks Types: 7 - 8 Cans of Beer (12oz) per week Drug use: Not Currently Types: Amphetamines, Marijuana PHYSICAL EXAMINATION General appearance: Well appearing, alert, in no acute distress, and well-hydrated, well nourished Skin: Skin color, texture, turgor normal, no suspicious rashes or lesions Respiratory:+ effort Cardiovascular: Not examined GI: Normal abdominal exam, Abdomen soft, non-tender. No masses, organomegaly Musculoskeletal: Negative Neuro: Negative Genitourinary: well healing incisions Impression: (N48.89) Penile skin bridge (primary encounter diagnosis) Plan: prn Jorge Cormier Jr, MD 09/01/2022 [facility] 09-01-2022 Nurse Note No problems, here for Post Op. No concerns. documented in this encounter [facility] 09-01-2022 History of Presen t illness Narrative ESTABLISHED PATIENT OFFICE VISIT HPI Ant Ji is a 47 year old male who presents refer for penile abnormality. Has been there since . Having issues and pain with intercourse. Has penile skin bridge on dorsal surface. No LUTS. Does use cialis for ED. Works well. No fever. No uti. 09/01/22 - sp excision penile skin bridge. No pain. Doing well. Says healed up well. No fever. No luts. No uti. LAB: Creatinine Date Value Ref Range Status 04/01/2021 0.95 0.73 - 1.22 mg/dL Final No results found for: PSA No results found for: UGLUC, UBILI, UKET, SPGR, UHB, UPH, UPROT, UROBIL, NITRITES, UWBC, UCOLAP MEDICATIONS: Tadalafil (CIALIS) 10 mg tablet Take 1 tablet by mouth as needed (prior sexual intercourse). REVIEW OF SYSTEMS Review of Systems Constitutional: Negative. Respiratory: Negative. Cardiovascular: Negative. Gastrointestinal: Negative. Genitourinary: Negative. Skin: Negative. Neurological: Negative. Psychiatric/Behavioral: Negative. HISTORIES PAST MEDICAL HISTORY Diagnosis Date Alcohol abuse Childhood asthma Class 2 obesity due to excess calories with body mass index (BMI) of 36.0 to 36.9 in adult Essential hypertension Hepatitis C Hepatitis C, chronic (HCC) Dr. Woodson History of marijuana use History of methamphetamine abuse ([facility]) 2018 History of opioid abuse ([facility]) Mixed hyperlipidemia FAMILY HISTORY Problem Relation Age of Onset Alcohol abuse Mother Diabetes Mother Hepatitis C Mother Pancreatic Cancer Father Lung Cancer Paternal Grandmother Aneurysm Paternal Grandfather Lung Cancer Paternal Grandfather Cerebral palsy Daughter No Known Problems Daughter No Known Problems Daughter No Known Problems Daughter Schizophrenia Son No Known Problems Son No Known Problems Son No Known Problems Son SOCIAL HISTORY Social History Tobacco Use Smoking status: Never Smokeless tobacco: Never Substance Use Topics Alcohol use: Yes Alcohol/week: 7.0 - 8.0 standard drinks Types: 7 - 8 Cans of Beer (12oz) per week Drug use: Not Currently Types: Amphetamines, Marijuana PHYSICAL EXAMINATION General appearance: Well appearing, alert, in no acute distress, and well-hydrated, well nourished Skin: Skin color, texture, turgor normal, no suspicious rashes or lesions Respiratory:+ effort Cardiovascular: Not examined GI: Normal abdominal exam, Abdomen soft, non-tender. No masses, organomegaly Musculoskeletal: Negative Neuro: Negative Genitourinary: well healing incisions Impression: (N48.89) Penile skin bridge (primary encounter diagnosis) Plan: prsandhya Cormier Jr, MD 09/01/2022 documented in this encounter [facility] 07-24-2022 Miscellaneous Notes Pt is scheduled, will call when home from the hospital to confirm appt. Makayla DOWELL [facility] 07/24/22 Fu with me 4 weeks documented in this encounter [facility] 07-01-2022 History of Presen t illness Narrative NEW PATIENT HISTORY AND PHYSICAL EXAM PATIENT INFO: Ant Ji 47 year old REFERRING PROVIDER: Data Unavailable PCP: Ernestina Chavez MD HPI Ant Ji is a 47 year old male refer for penile abnormality. Has been there since . Having issues and pain with intercourse. Has penile skin bridge on dorsal surface. No LUTS. Does use cialis for ED. Works well. No fever. No uti. Review of Systems Constitutional: Negative. Respiratory: Negative. Cardiovascular: Negative. Gastrointestinal: Negative. Genitourinary: Negative. Skin: Negative. Neurological: Negative. Psychiatric/Behavioral: Negative. LAB: Creatinine Date Value Ref Range Status 04/01/2021 0.95 0.73 - 1.22 mg/dL Final No results found for: PSA No results found for: UGLUC, UBILI, UKET, SPGR, UHB, UPH, UPROT, UROBIL, NITRITES, UWBC, UCOLAP MEDICATIONS: Tadalafil (CIALIS) 10 mg tablet Take 1 tablet by mouth as needed (prior sexual intercourse). HISTORIES PAST MEDICAL HISTORY Diagnosis Date Alcohol abuse Childhood asthma Class 2 obesity due to excess calories with body mass index (BMI) of 36.0 to 36.9 in adult Essential hypertension Hepatitis C Hepatitis C, chronic (HCC) Dr. Woodson History of marijuana use History of methamphetamine abuse (HCC) 2018 History of opioid abuse (HCC) Mixed hyperlipidemia FAMILY HISTORY Problem Relation Age of Onset Alcohol abuse Mother Diabetes Mother Hepatitis C Mother Lung Cancer Paternal Grandmother Aneurysm Paternal Grandfather Schizophrenia Son No Known Problems Son No Known Problems Son No Known Problems Son Cerebral palsy Daughter No Known Problems Daughter No Known Problems Daughter No Known Problems Daughter SOCIAL HISTORY Social History Tobacco Use Smoking status: Never Smokeless tobacco: Never Substance Use Topics Alcohol use: Yes Alcohol/week: 7.0 - 8.0 standard drinks Types: 7 - 8 Cans of Beer (12oz) per week Drug use: Not Currently Types: Amphetamines, Marijuana PHYSICAL EXAMINATION Ht 175.3 cm (5' 9 ) Wt 115.7 kg (255 lb) BMI 37.66 kg/m General appearance: Well appearing, alert, in no acute distress, and well-hydrated, well nourished Skin: Skin color, texture, turgor normal, no suspicious rashes or lesions Respiratory:+ effort Cardiovascular: Not examined GI: Normal abdominal exam, Abdomen soft, non-tender. No masses, organomegaly Musculoskeletal: normal ROM Neuro: No gross neurologic defecits Genitourinary: not examined ASSESSMENT: (N48.89) Penile skin bridge (primary encounter diagnosis) (N52.9) Erectile dysfunction of organic origin (N48.9) Penile abnormality PLAN: Excision penile skin bridge Jorge Cormier Jr, MD documented in this encounter [facility] 05-19-2022 History of Presen t illness Narrative Chief Complaint Patient presents with: genital issue HPI Ant Ji is a 47 year old male who presents here today for Above Complaints. Patient states that he has extra skin on his penis which has been present since he was a child. Has adherent skin on the top of his penis from circumcision. Causes irritation and bleeding with sexual intercourse. Has difficulty obtaining and maintaining an erection almost 100% of time. Going on for the last 2 months. Not on any new medications in the last 2 months. Has been using [employer] through [employer] for the last 3 years. Drinking about 8 beers per week. Denies tobacco use or other illicit drug use. States that he got some cialis from a friend which helped with symptoms and would like rx. Past medical history, appointments, medications, allergies reviewed. Previous Medical History PAST MEDICAL HISTORY Diagnosis Date Alcohol abuse Childhood asthma Class 2 obesity due to excess calories with body mass index (BMI) of 36.0 to 36.9 in adult Essential hypertension Hepatitis C Hepatitis C, chronic (HCC) Dr. Woodson History of marijuana use History of methamphetamine abuse (HCC) 2018 History of opioid abuse (HCC) Mixed hyperlipidemia Previous Surgical History PAST SURGICAL HISTORY Procedure Laterality Date APPENDECTOMY HX 1986 FINGER SURGERY HX Left 03/2016 index finger infection debridement PAST SURGICAL HISTORY OF Left cyst excision for left side of neck Family History FAMILY HISTORY Problem Relation Age of Onset Alcohol abuse Mother Diabetes Mother Hepatitis C Mother Lung Cancer Paternal Grandmother Aneurysm Paternal Grandfather Schizophrenia Son No Known Problems Son No Known Problems Son No Known Problems Son Cerebral palsy Daughter No Known Problems Daughter No Known Problems Daughter No Known Problems Daughter Patient Allergies ALLERGIES Allergen Reactions Shellfish Derived Swelling Mouth and throat swelling, hives Current Medications No current outpatient medications on file prior to visit. No current facility-administered medications on file prior to visit. Social History Social History Tobacco Use Smoking status: Never Smokeless tobacco: Never Substance Use Topics Alcohol use: Yes Alcohol/week: 7.0 - 8.0 standard drinks Types: 7 - 8 Cans of Beer (12oz) per week Drug use: Not Currently Types: Amphetamines, Marijuana Review of Symptoms REVIEW OF SYSTEMS See HPI EXAM: BP 146/70 Pulse 86 Resp 16 Wt 116.7 kg (257 lb 3.2 oz) SpO2 96% BMI 37.66 kg/m General Appearance: Well appearing, alert, in no acute distress, well-hydrated, well nourished.. Peripheral Pulses: Pulses:femoral=4/4, . Genitalia: patient has remaining strip of foreskin which is adherent from his shaft of his penis to the glans at 12 o'clock. No testicular pain, swelling, masses, hernia. Health Maintenance List HEPATITIS B(1 of 3 - 3-dose series) Never done COVID-19 VACCINE(1) Never done COLORECTAL CANCER SCREENING Never done DEPRESSION ASSESSMENT Never done INFLUENZA(1) Never done PNEUMOCOCCAL(2 - PCV) due on 04/01/2022 ANNUAL PCP TEAM CHRONIC DISEASE VISIT due on 01/26/2023 BP CONTROLLED (<130/80) due on 01/26/2023 DIABETES SCREEN due on 04/01/2024 LIPID SCREEN due on 03/30/2025 DTAP,TDAP,TD(2 - Td or Tdap) due on 01/07/2027 HEPATITIS C SCREENING Completed HIV SCREENING Completed ASSESSMENT/PLAN: 1. Erectile dysfunction, unspecified erectile dysfunction type - ICD9: 607.84, ICD10: N52.9 (primary diagnosis) Start cialis. 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 Needs to cut back on alcohol as well. Check labs and will call with results. - CBC + DIFF - COMP METABOLIC PANEL - TESTOSTERONE, FREE AND TOTAL - TSH BLD - LIPID PANEL, NONFASTING - HGB A1C 2. Penile abnormality - ICD9: 607.9, ICD10: N48.9 Refer to urology for surgical removal of adherent skin. - CONSULT TO UROLOGY Ernestina Chavez MD documented in this encounter [facility] 01-26-2022 History of Presen t illness Narrative 01/26/2022 Patient presents with: Recheck: head wound SUBJECTIVE: This is a 46 year old that is here today for Above Complaints. Seen on 01/21/2022 for follow-up from head laceration. Wanting to go back to work. Feeling better area not throbbing. Denies fevers, chills, surrounding erythema, continuous bleeding, swelling, tenderness or purulent drainage. PAST MEDICAL HISTORY Diagnosis Date Alcohol abuse Childhood asthma Class 2 obesity due to excess calories with body mass index (BMI) of 36.0 to 36.9 in adult Essential hypertension Hepatitis C Hepatitis C, chronic (HCC) Dr. Woodson History of marijuana use History of methamphetamine abuse (HCC) 2018 History of opioid abuse (HCC) Mixed hyperlipidemia ALLERGIES Shellfish Derived MEDICATIONS No current outpatient medications on file. No current facility-administered medications for this visit. Medications and allergies reviewed by this provider. SOCIAL HISTORY Social History Tobacco Use Smoking status: Never Smoker Smokeless tobacco: Never Used Substance Use Topics Alcohol use: Yes Alcohol/week: 7.0 - 8.0 standard drinks Types: 7 - 8 Cans of Beer (12oz) per week Drug use: Not Currently Types: Amphetamines, Marijuana REVIEW OF SYSTEMS All other reviewed and negative other than HPI. OBJECTIVE: BP 124/76 Pulse 65 Temp 36.1 C (97 F) Resp 16 SpO2 100% . Vital signs reviewed by this provider. APPEARANCE Well appearing, alert, in no acute distress, well-hydrated, well nourished. SKIN: Approximately 2.5 cm mostly circular scabbed area to left scalp. No surrounding erythema, excessive warmth, tenderness, bleeding or purulent drainage observed. COVID-19 VACCINE(1) Never done DEPRESSION SCREENING Never done HEPATITIS B(1 of 3 - Risk 3-dose series) Never done COLORECTAL CANCER SCREENING Never done INFLUENZA(1) due on 03/12/2022 PNEUMOCOCCAL(2 - PCV) due on 04/01/2022 ANNUAL PCP TEAM CHRONIC DISEASE VISIT due on 01/26/2023 BP CONTROLLED (<130/80) due on 01/26/2023 DIABETES SCREEN due on 04/01/2024 LIPID SCREEN due on 03/30/2025 DTAP,TDAP,TD(2 - Td or Tdap) due on 01/07/2027 HEPATITIS C SCREENING Completed HIV SCREENING Completed ASSESSMENT/PLAN: 1. Laceration of scalp, subsequent encounter - ICD9: V58.89, 873.0, ICD10: S01.01XD - area has completley scabbed over - no red flag symptoms or exam findings - red flag symptoms discussed, verbalizes understanding - discussed skin to area and dressing changes - is to follow-up if not healing or with signs or symptoms of infection, to ER with red flag symptoms Solitario Trevino APRN.CNP Prescription instructions reviewed with patient as applicable. Patient advised if symptoms do not improve or if symptoms worsen sooner, to contact their primary care physician. Potential red flag symptoms discussed with the patient. Reviewed appropriate action plan to take if red flag symptoms occur. Patient agreeable to treatment plan. documented in this encounter [facility] 01-21-2022 History of Presen t illness Narrative Patient arrived 15 minutes late for appointment. Switch to [employer] Solitario Trevino's schedule. documented in this encounter [facility] 01-21-2022 History of Presen t illness Narrative 01/21/2022 Patient presents with: ER F/U: Release back to work SUBJECTIVE: This is a 46 year old that is here today for Above Complaints. HOSPITAL/ER FOLLOW UP: Reason for visit: head laceration [facility] Date of visit: 01/19/2022 Diagnosis: scalp laceration Testing done: none- patient refused CT scan at ER- per ER report Treatment given: wound irrigated- patient refused tila or sutures per ER report Since ER visit has been doing well. Has been keeping area covered with a bandana. Needs release to go to back to work. 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 Denies headaches, visual changes, fevers, chills, surrounding erythema, worsening tenderness, purulent drainage, nausea or vomiting ER reports reviewed PAST MEDICAL HISTORY Diagnosis Date Alcohol abuse Childhood asthma Class 2 obesity due to excess calories with body mass index (BMI) of 36.0 to 36.9 in adult Essential hypertension Hepatitis C Hepatitis C, chronic (HCC) Dr. Woodson History of marijuana use History of methamphetamine abuse (HCC) 2018 History of opioid abuse (HCC) Mixed hyperlipidemia ALLERGIES Shellfish Derived MEDICATIONS No current outpatient medications on file. No current facility-administered medications for this visit. Medications and allergies reviewed by this provider. SOCIAL HISTORY Social History Tobacco Use Smoking status: Never Smoker Smokeless tobacco: Never Used Substance Use Topics Alcohol use: Yes Alcohol/week: 7.0 - 8.0 standard drinks Types: 7 - 8 Cans of Beer (12oz) per week Drug use: Not Currently Types: Amphetamines, Marijuana REVIEW OF SYSTEMS All other reviewed and negative other than HPI. OBJECTIVE: BP 122/80 Pulse 80 Temp 36.3 C (97.3 F) (Left Tympanic) Resp 16 Wt 109.3 kg (241 lb) BMI 35.29 kg/m . Vital signs reviewed by this provider. APPEARANCE Well appearing, alert, in no acute distress, well-hydrated, well nourished. EYES PERRLA, conjunctiva and sclera normal. NEURO Awake, alert and oriented x 3, Cranial nerves II-XII grossly intact, Reflexes symmetrical, Normal gait, No involuntary motions. and negative findings: speech normal, mental status intact, gait, including heel, toe, and tandem walking normal, Romberg negative, muscle tone normal, muscle strength normal, rapid alternating movements normal, finger to nose normal, reflexes normal and symmetric, plantar response downgoing bilaterally SKIN left scalp with approximately a 2.5 cm circular laceration with triangular skin flap which is adhered and purplish in discoloration. Small open area with scant serosanguineous superior to skin flap. TTP. No surrounding erythema, excessive warmth or purulent drainage observed. COVID-19 VACCINE(1) Never done DEPRESSION SCREENING Never done BP CONTROLLED (<130/80) Never done HEPATITIS B(1 of 3 - Risk 3-dose series) Never done COLORECTAL CANCER SCREENING Never done INFLUENZA(1) due on 03/12/2022 PNEUMOCOCCAL(2 - PCV) due on 04/01/2022 ANNUAL PCP TEAM CHRONIC DISEASE VISIT due on 01/21/2023 DIABETES SCREEN due on 04/01/2024 LIPID SCREEN due on 03/30/2025 DTAP,TDAP,TD(2 - Td or Tdap) due on 01/07/2027 HEPATITIS C SCREENING Completed HIV SCREENING Completed ASSESSMENT/PLAN: 1. Laceration of scalp, subsequent encounter - ICD9: V58.89, 873.0, ICD10: S01.01XD - no red flag symptoms or exam findings - red flag symptoms discussed, patient verbalizes understanding - discussed with patient he needs to keep area clean and dry. Needs to cover it with a clean non-adherent dressing and apply neosporin to area. Change dressing if becomes saturated - will have him come back early Wednesday morning and if improving we can clear him back to work. I think with it still being tender and open, wearing a hard hat at this time will irritate area and cause more pain and likely bleeding. He is to go back to ER with red flag symptoms - letter provided for patient to stay off work Solitario Trevino APRN.MSWS Prescription instructions reviewed with patient as applicable. Patient advised if symptoms do not improve or if symptoms worsen sooner, to contact their primary care physician. Potential red flag symptoms discussed with the patient. Reviewed appropriate action plan to take if red flag symptoms occur. Patient agreeable to treatment plan. documented in this encounter [facility] Evaluation + Plan note No data available for this section [facility] Laceration of scalp, subsequent encounter- Primary [facility] Diagnosis Laceration of scalp, subsequent encounter- Primary [facility] Diagnosis Erectile dysfunction, unspecified erectile dysfunction type- Primary Penile abnormality Unspecified disorder of penis [facility] Diagnosis Penile skin bridge- Primary Other specified disorder of penis Erectile dysfunction of organic origin Impotence of organic origin Penile abnormality Unspecified disorder of penis [facility] Diagnosis Penile skin bridge- Primary Other specified disorder of penis [facility] Diagnosis Pain- Primary Generalized pain [facility] Diagnosis Loose body in elbow joint, right- Primary Ulnar neuropathy of right upper extremity Lesion of ulnar nerve Osteoarthritis of right elbow, unspecified osteoarthritis type [facility] Diagnosis Alcohol abuse- Primary Alcohol abuse, unspecified Irregular heart rhythm Cardiac dysrhythmia, unspecified [facility] Diagnosis Cubital tunnel syndrome, right- Primary Pain Generalized pain [facility] Diagnosis Cubital tunnel syndrome, right [facility] Diagnosis Cubital tunnel syndrome, right- Primary documented in this encounter [facility] for referral (narrative)* Outpatient Procedure (Routine) - Closed Specialty Diagnoses / Procedures Referred By Jacinto dawkins Referred To [facility] [place] Diagnoses Irregular heart rhythm Procedures ECG COMPLETE ECG ROUTINE ECG W/LEAST 12 LDS W/I&R Ernestina Chavez MD [address] [place] [address] [facility] [address] [address] Referral ID Status Reason Start Date Expiration Date V isits Requested Visits Authorized [id number] Closed Auto-Generate d Referral 01/05/2023 01/05/2024 1 1 [facility] for referral (narrative)* Outpatient Procedure (Routine) - Authorized Specialty Diagnoses / Procedures Referred By Jacinto t Referred To [facility] Diagnoses Cubital tunnel syndrome, right Procedures EMG(NEURO/NI) NERVE CONDUCTION STUDIES 9-10 STUDIES Gerhard Julio MD, PhD [address] [place] [address] [address] Referral ID Status Reason Start Date Expiration Date Visits Requested Visits Authorized [id number] Authorized Auto-Generat ed Referral 3 04/21/2024 1 1 [facility] for visit Narrative* Outpatient Procedure (Routine) - Closed Specialty Diagnoses / Procedures Referred By Rosaac t Referred To [facility] Diagnoses Cubital tunnel syndrome, right Procedures EMG(NEURO/NI) NERVE CONDUCTION STUDIES 9-10 STUDIES Gerhard Julio MD, PhD [address] [place] [address] [address] Referral ID Status Reason Start Date Expiration Date V isits Requested Visits Authorized [id number] Closed Auto-Generate d Referral 04/21/2023 04/21/2024 1 1 [facility] Summary Purpose Family History No Family History Records FoundNo Family History Records Found No data available for this section No Family History Records FoundNo Family History Records Found Advance Directives No Advanced Directives Records FoundNo Advanced Directives Records FoundNo Advanced Directives Records FoundNo Advanced Directives Records Found Reason for Referral Specialty Diagnoses / Procedures Referred By Contac t Referred To Contact Urology Diagnoses Penile abnormality Procedures CONSULT TO UROLOGY OFFICE/OUTPATIENT [facility] 60-74 MINUTES Ernestina Chavez MD [address] [place] [address] Referral ID Status Reason Start Date Expiration Date Visits Requested Visits Authorized [id number] Authorized PCP Requested Referral 05/19/2022 05/19/2023 1 1 Specialty Diagnoses / Procedures Referred By Contac t Referred To Contact Orthopedics Diagnoses Pain Procedures CONSULT TO ORTHOPAEDICS OFFICE/OUTPATIENT [facility] 60-74 MINUTES Kenia Cain APRN.MSWS [address] [place] [address] Referral ID Status Reason Start Date Expiration Date Visits Requested Visits Authorized [id number] Authorized PCP Requested Referral 09/29/2022 09/29/2023 1 1 Specialty Diagnoses / Procedures Referred By Contac t Referred To Contact XR IMAGING Diagnoses Pain Procedures XR ELBOW SPECIAL VIEWS AP/LAT/OTHER RIGHT RADEX ELBOW COMPLETE MINIMUM 3 VIEWS Kenia Cain APRN.MSWS [address] [place] [address] Xr Imaging Referral ID Status Reason Start Date Expiration Date V isits Requested Visits Authorized [id number] Closed Auto-Generate d Referral 09/29/2022 10/29/2023 1 1 Specialty Diagnoses / Procedures Referred By Contac t Referred To Contact [facility] Diagnoses Cubital tunnel syndrome, right Procedures CONSULT TO ACTUARIAL MANAGER OCCUPATIONAL THERAPY EVAL HIGH COMPLEX 60 MINS Kaycee Neal PA-C [address] [place] [address] [facility] [address] [place] [address] Referral ID Status Reason Start Date Expiration Date Visits Requested Visits Authorized [id number] Pending Review Auto-Generat ed Referral 3 06/29/2024 1 1 Specialty Diagnoses / Procedures Referred By Contac t Referred To Contact Diagnoses Cubital tunnel syndrome, right Procedures REFER TO PACC - PRE ANESTHESIA CONSULTATION CLINIC OFFICE/OUTPATIENT NEW HIGH MDM 60-74 MINUTES Kaycee Neal PA-C [address] [place] [address] Referral ID Status Reason Start Date Expiration Date Visits Requested Visits Authorized [id number] Authorized PCP Requested Referral 3 06/29/2024 1 1 Additional Source Comments (unrecognized sect ion and content) No Status Records FoundNo Status Records FoundNo Status Records FoundNo Status Records Found INFORMATION SOURCE (unrecogn ized section and content) DATE CREATED AUTHOR AUTHOR'S ORGANIZ ATION 08/05/2022 [facility] DATE CREATED AUTHOR AUTHOR'S ORGANIZ ATION 07/21/2023 [facility] DATE CREATED AUTHOR AUTHOR'S ORGANIZ ATION 07/23/2023 [facility] Source Comments (unrecognize d section and content) In the event this informatio n is protected by the Federal Confidentiality of Alcohol and Drug Abuse Patient Records regulations: The Federal rules restrict any use of the information to criminally investigate or prosecute any alcohol or drug abuse patient.[facility] event this information is protected by the Federal Confidentiality of Alcohol and Drug Abuse Patient Records regulations: The Federal rules restrict any use of the information to criminally investigate or prosecute any alcohol or drug abuse patient.[facility] the event this information is protected by the Federal Confidentiality of Alcohol and Drug Abuse Patient Records regulations: The Federal rules restrict any use of the information to criminally investigate or prosecute any alcohol or drug abuse patient.[facility] the event this information is protected by the Federal Confidentiality of Alcohol and Drug Abuse Patient Records regulations: The Federal rules restrict any use of the information to criminally investigate or prosecute any alcohol or drug abuse patient.[facility] the event this information is protected by the Federal Confidentiality of Alcohol and Drug Abuse Patient Records regulations: The Federal rules restrict any use of the information to criminally investigate or prosecute any alcohol or drug abuse patient.[facility] the event this information is protected by the Federal Confidentiality of Alcohol and Drug Abuse Patient Records regulations: The Federal rules restrict any use of the information to criminally investigate or prosecute any alcohol or drug abuse patient.[facility] the event this information is protected by the Federal Confidentiality of Alcohol and Drug Abuse Patient Records regulations: The Federal rules restrict any use of the information to criminally investigate or prosecute any alcohol or drug abuse patient.[facility] the event this information is protected by the Federal Confidentiality of Alcohol and Drug Abuse Patient Records regulations: The Federal rules restrict any use of the information to criminally investigate or prosecute any alcohol or drug abuse patient.[facility] the event this information is protected by the Federal Confidentiality of Alcohol and Drug Abuse Patient Records regulations: The Federal rules restrict any use of the information to criminally investigate or prosecute any alcohol or drug abuse patient.[facility] the event this information is protected by the Federal Confidentiality of Alcohol and Drug Abuse Patient Records regulations: The Federal rules restrict any use of the information to criminally investigate or prosecute any alcohol or drug abuse patient.[facility] the event this information is protected by the Federal Confidentiality of Alcohol and Drug Abuse Patient Records regulations: The Federal rules restrict any use of the information to criminally investigate or prosecute any alcohol or drug abuse patient.[facility] TroyIn the event this information is protected by the Federal Confidentiality of Alcohol and Drug Abuse Patient Records regulations: The Federal rules restrict any use of the information to criminally investigate or prosecute any alcohol or drug abuse patient.[facility] TroyIn the event this information is protected by the Federal Confidentiality of Alcohol and Drug Abuse Patient Records regulations: The Federal rules restrict any use of the information to criminally investigate or prosecute any alcohol or drug abuse patient.[facility] TroyIn the event this information is protected by the Federal Confidentiality of Alcohol and Drug Abuse Patient Records regulations: The Federal rules restrict any use of the information to criminally investigate or prosecute any alcohol or drug abuse patient.[facility] TroyIn the event this information is protected by the Federal Confidentiality of Alcohol and Drug Abuse Patient Records regulations: The Federal rules restrict any use of the information to criminally investigate or prosecute any alcohol or drug abuse patient.[facility] TroyIn the event this information is protected by the Federal Confidentiality of Alcohol and Drug Abuse Patient Records regulations: The Federal rules restrict any use of the information to criminally investigate or prosecute any alcohol or drug abuse patient.[facility] TroyIn the event this information is protected by the Federal Confidentiality of Alcohol and Drug Abuse Patient Records regulations: The Federal rules restrict any use of the information to criminally investigate or prosecute any alcohol or drug abuse patient.[facility] Care Teams (unrecognized sec tion and content) Public Policy Professor Relationship Specialty Start Date End Date Ernestina Chavez MD [address] [facility] [place] [address] PCP - General Family Practice 04/02/21 Public Policy Professor Relationship Specialty Start Date End Date Ernestina Chavez MD [address] [facility] [place] [address] PCP - General Family Practice 04/02/21 Public Policy Professor Relationship Specialty Start Date End Date Ernestina Chavez MD [address] [facility] [place] [address] PCP - General Family Medicine 04/02/21 Public Policy Professor Relationship Specialty Start Date End Date Ernestina Chavez MD [address] [facility] [place] [address] PCP - General Family Medicine 04/02/21 Public Policy Professor Relationship Specialty Start Date End Date Ernestina Chavez MD [address] [facility] [place] [address] PCP - General Family Medicine 04/02/21 Public Policy Professor Relationship Specialty Start Date End Date Ernestina Chavez MD [address] [facility] [place] [address] PCP - General Family Medicine 04/02/21 Public Policy Professor Relationship Specialty Start Date End Date Ernestina Chavez MD [address] [facility] [place] [address] PCP - General Family Medicine 04/02/21 Public Policy Professor Relationship Specialty Start Date End Date Ernestina Chavez MD [address] [facility] [place] [address] PCP - General Family Medicine 04/02/21 Public Policy Professor Relationship Specialty Start Date End Date Ernestina Chavez MD [address] [place], [place] [address] PCP - General Family Medicine 04/02/21 Public Policy Professor Relationship Specialty Start Date End Date Ernestina Chavez MD [address] [place], [place] [address] PCP - General Family Medicine 04/02/21 Public Policy Professor Relationship Specialty Start Date End Date Ernestina Chavez MD [address] [place], [place] [id number] PCP - General Family Medicine 04/02/21 Public Policy Professor Relationship Specialty Start Date End Date Ernestina Chavez MD [address] [place], [place] [id number] PCP - General Family Medicine 04/02/21 Public Policy Professor Relationship Specialty Start Date End Date Ernestina Chavez MD [address] [place], [place] [id number] PCP - General Family Medicine 04/02/21 Public Policy Professor Relationship Specialty Start Date End Date Ernestina Chavez MD [address] [place], [place] [id number] PCP - General Family Medicine 04/02/21 Reason for Visit (unrecogniz ed section and content) Reason Comments Recheck head wound Reason Comments genital issue Reason Comments New Patient Penile abnormality Specialty Diagnoses / Procedures Referred By Jacinto dawkins Referred To Contact Urology Diagnoses Penile abnormality Procedures CONSULT TO UROLOGY OFFICE/OUTPATIENT NEW HIGH MDM 60-74 MINUTES Ernestina Chavez MD [address] [place] [address] Referral ID Status Reason Start Date Expiration Date V isits Requested Visits Authorized [id number] Closed PCP Requested Referral 05/19/2022 05/19/2023 1 1 Reason Onset Date Comments Appointment 07/24/2022 Reason Comments Post Op Reason Comments right elbow pain Twisted elbow 3 week s ago working out Reason Comments Established Patient Reason Onset Date Comments Refill Request 01/04/2023 Reason Comments Alcohol Problem Patient reports DT's when waking up-had been off alcohol for 9- 10 months and relapsed about 18 months ago Reason Comments New Pain New Right hand numbness Numbness Right hand numbness Numbness Specialty Diagnoses / Procedures Referred By Jacinto t Referred To Contact Orthopedics Diagnoses Pain Procedures CONSULT TO ORTHOPAEDICS OFFICE/OUTPATIENT [facility] 60-74 MINUTES Kenia Cain APRN.MSWS [address] [place] [address] Referral ID Status Reason Start Date Expiration Date V isits Requested Visits Authorized [id number] Closed PCP Requested Referral 09/29/2022 09/29/2023 1 1 Reason Comments Medication Request Reason Onset Date Comments Refill Request 06/22/2023 FOR RECORDS PERTAINING TO PATIENTS WHO ARE OR HAVE BEEN ENROLLED IN A CHEMICAL DEPENDENCY/SUBSTANCEABUSE PROGRAM, SOME INFORMATION MAY BE OMITTED. This clinical summary was aggregated from multiple sources. Caution should be exercised in using it in the provision of clinical care. This summary normalizes information from multiple sources, and as a consequence, information in this document may materially change the coding, format and clinical context of patient data. In addition, data may be omitted in some cases. CLINICAL DECISIONS SHOULD BE BASED ON THE PRIMARY CLINICAL RECORDS. [facility] [employer] [facility]. provides no warranty or guarantee of the accuracy or completeness of information in this document.
[2023-08-20] MEDS: Phenobarbital 32.4 MG Tablet 64.7999999999999972 MG PO ×5 (09:00→22:18)
[2023-08-20] MEDS: Folic Acid 1 MG Tablet PO (09:38)
[2023-08-20] MEDS: Multivitamins,Ther W-Minerals Tablet 1 TABLET PO (09:38)
[2023-08-20] MEDS: Lactated Ringers 1,000 ML 125 ML IV (09:38)
[2023-08-20] MEDS: Thiamine Hydrochloride 100 MG Tablet PO (09:38)
[2023-08-20 09:49] LABS: Absolute Lymphocyte Count 1.33 X10^3/uL (0.83-4.51); Absolute Neutrophil Count 2.7 X10^3/uL (2.0-7.7); Basophil# 0.02 X10^3/uL; Basophil% 0.5 % (0-1); Eosinophil# 0.11 X10^3/uL; Eosinophils% 2.5 % (0-5); Hematocrit 39.5 % (40-54); Hemoglobin 14.3 g/dL (13.0-16.5); Lymphocyte # 1.33 X10^3/ul (0.83-4.51); Mean Corp Hgb Conc 36.2 g/dL (32-36); Mean Corpuscular Hgb 31.6 pg (27.0-32.0); Mean Corpuscular Volume 87.4 fL (80-94); Mean Platelet Vol. 8.8 fl (6.2-12.0); Monocyte# 0.28 X10^3/uL; Monocyte% 6.3 % (0-10); NRBC Flagged by Analyzer 0 % (0-5); Neutrophil # 2.68 X10^3/uL (2.7-7.7); Neutrophil % 60.5 % (47-70); Platelet Count 229 K/mm3 (150-450); RBC Distribution Width CV 12.5 % (11.6-14.6); RBC Distribution Width SD 39.3 fl (35.1-43.9); Red Blood Count 4.52 M/mm3 (4.6-6.2); White Blood Count 4.4 K/mm3 (4.4-11.0)
[2023-08-20 10:32] LABS: ALB/GLOB Ratio 1.1 RATIO (0.9-2.4); AST(SGOT) 9 U/L (15-37); Alanine Aminotransfer ALT/SGPT 26 U/L (16-61); Albumin, Serum 3.3 g/dL (3.2-5.0); Alkaline Phosphatase 55 U/L (45-117); Anion Gap 6 (5-15); BUN 11 mg/dL (7-18); BUN/Creat Ratio 10.4 RATIO (10-20); Calcium,Total 8.5 mg/dL (8.5-10.1); Chloride 112 mmol/L (98-107); Creatinine, Serum 1.06 mg/dL (0.70-1.30); EST Glomerular Filtration Rate 79 mL/min (>60); Est Glom Filt Rate - Afr Amer 96 mL/min (>60); Globulin 2.9 g/dL (2.2-4.2); Glucose 136 mg/dL (74-106); Magnesium 2.3 mg/dL (1.6-2.6); Phosphorus 3.4 mg/dL (2.5-4.9); Potassium 3.6 mmol/L (3.5-5.1); Protein, Total 6.2 g/dL (6.4-8.2); Sodium Level 143 mmol/L (136-145)
[2023-08-20 11:56] LABS: HIV - WCH Non-Reactive (Nonreactive); Hepatitis B Surface Antibody Non-Reactive; Hepatitis B Surface Antigen Non-Reactive (Nonreactive); Hepatitis C Antibody Preliminary Reactive (Nonreactive); Syphilis Antibodies Non-reactive
--- NOTE | 2023-08-20 12:20 | ADDICTION ---
clinician met with client to discuss his hx of substance use. client reported that he was sober from all substances for approximately 20 yrs. he recently began using alcohol and meth due to his leaving me from someone else . clinician briefly assisted client in processing emotions. client was tearful throughout most of this meeting. clinician discussed the grieving process of his marriage and the importance of him focusing on himself and his emotional/physical healing. client was open and cooperative and acknowledged the need for further AoD treatment. Upon release from detox; he will be transported back to [facility]. clinician obtained a eron for [facility]; as this agency has provided services in this local correction. clinician will attempt to coordinate care for further tx upon release from correction.
[2023-08-20 14:00] VITALS: BP 136/80; PULSE 68; RESP 18; TEMP 36.8; O2SAT 98
[2023-08-20 17:46] VITALS: BP 150/68; PULSE 81; RESP 18; TEMP 37.2; O2SAT 98
[2023-08-20 22:14] VITALS: BP 150/97; PULSE 67; RESP 16; TEMP 36.4; O2SAT 100
[2023-08-20] MEDS: traZODone 100 MG Tablet PO (22:36)
[2023-08-20] MEDS: Acetaminophen 325 MG Tablet 650 MG PO (22:36)
[2023-08-20] MEDS: hydrOXYzine PAM 25 MG Capsule 50 MG PO (22:36)
[2023-08-21] MEDS: Phenobarbital 32.4 MG Tablet 64.7999999999999972 MG PO ×6 (04:06→22:49)
[2023-08-21 04:07] VITALS: BP 138/90; PULSE 63; RESP 16; TEMP 36.8; O2SAT 98
--- NOTE | 2023-08-21 06:22 | PN.HOSP_ITS ---
Reason for Visit Reason for Visit: Diagnoses Alcohol use, unspecified with withdrawal, unspecified (08/20/23) Unspecified convulsions (08/20/23) Subjective Subjective Patient with no acute events overnight per self or per nursing report. Patient states is the best he slept in over a week. He denies any current withdrawal symptoms and remains amenable to ongoing care. Patient denies fevers, chills, nausea, emesis, abdominal pain, chest pain or dyspnea. Objective Data Objective Data Vital Signs: Vital Signs Temp Pulse Resp BP Pulse Ox O2 Del Method 98.2 F 63 16 138/90 H 98 Room Air 08/21/23 04:07 08/21/23 04:07 08/21/23 04:07 08/21/23 04:07 08/21/23 04:07 08/21/23 04:07 Oxygen Delivery Method Room Air Weight: 225 lb 15.581 oz Body Mass Index (BMI) 34.3 Intake & Output: Intake and Output for Last 24 Hours 08/19/23 08/20/23 08/21/23 23:59 23:59 23:59 Intake Total 3000 / 3400 400 / 400 Balance 3000 / 3400 400 / 400 Lab / Micro Data 08/20/23 09:38 08/20/23 09:38 Labs: Laboratory Results - last 24 hr 08/20/23 09:38: WBC 4.4, RBC 4.52 L, Hgb 14.3, Hct 39.5 L, MCV 87.4, MCH 31.6, MCHC 36.2 H, RDW Std Deviation 39.3, RDW Coeff of Ayleen 12.5, Plt Count 229, MPV 8.8, Immature Gran % (Auto) 0.200, Neut % (Auto) 60.5, Lymph % (Auto) 30.0, Rusk % (Auto) 6.3, Eos % (Auto) 2.5, Baso % (Auto) 0.5, Absolute Neuts (auto) 2.7, Absolute Lymphs (auto) 1.33, Nucleated RBC % 0, Sodium 143, Potassium 3.6, Chloride 112 H, Carbon Dioxide 25.0, Anion Gap 6, BUN 11, Creatinine 1.06, Estim Creat Clear Calc 98.90, Est GFR (MDRD) Af Amer 96, Est GFR (MDRD) Non-Af 79, BUN/Creatinine Ratio 10.4, Glucose 136 H, Calcium 8.5, Phosphorus 3.4, Magnesium 2.3, Total Bilirubin 0.40, AST 9 L, ALT 26, Alkaline Phosphatase 55, Total Protein 6.2 L, Albumin 3.3, Globulin 2.9, Albumin/Globulin Ratio 1.1, Syphilis Total Ab Non-reactive, Hep Bs Antigen Non-Reactive, Hep Bs Antibody Non- Reactive, Hepatitis C Antibody Preliminary Reactive, HIV 1&2 Antibody Non- Reactive Physical Exam Narrative Physical Examination: General: Awake, alert, oriented x 3 and cooperative, seated upright in the MS bed, fatigued, notes he slept the best he slept in a week. Skin: Normal color, normal turgor, no icterus, no cyanosis except for occasional staged ecchymoses, abrasion. HEENT: AT/NC, EOMI, PERRLA, MMM. Lungs: CTA bilaterally, moderate effort, mild decrease BL bases, no rales, ronchi or wheezing. Heart: Regular rate and rhythm; no gallop, rub audible. Abdomen: Soft, NTTP, ND, normal BS. Extremities: No cyanosis, clubbing, or edema. Neurological: Patient awake, alert, oriented as noted, cognitive function intact; pupils equally reactive to light and accommodation, cranial nerves grossly normal, moving all 4 extremities, no focal deficits, currently no evid ence of any withdrawal symptoms, no tremors. Psychiatric: Affect appears fatigued but notes he slept extremely well, no acute evidence of depressive or anxiety feelings but does have underlying history. Assessment & Plan Assessment/Plan (1) Alcohol withdrawal: (2) Alcohol withdrawal seizure: PLAN: Plan The patient is a 48 y/o M w/ PMHx: Anxiety and Depression/PTSD, Hx Hepatitis, EtOH abuse (Everclear 3 pints daily, at least a 30 pack of beer if no Everclear), Polysubstance abuse (Hx prior IVDA with heroin/fentanyl and prior cocaine which he has not used x 12 years but still ongoing use of snorted methamphetamine and cannabis smoked) who presents to the [facility] as a direct admission from outside facility on 08/20/2023 presenting to ED at outside facility secondary to history of withdrawal alcohol seizure while in residential with noted episodes of nausea, tremors, agitation, tactile disturbances and eventually reported seizure. 1. New-Onset seizure secondary to EtOH withdrawal: Seizure activity with EtOH withdrawal. CT head w/ no acute findings at outside facility. Lab workup as noted in HPI but no report given regarding alcohol level or UDS of note. Admitted to medical surgical floor given stabilization at outside facility with no further seizure activity, initially maintain on telemetry given seizure concerns on precautions, will de-escalate given stability. Will maintained on CIWA and will continue phenobarbital taper regimen, maintain on MVI, folic acid, thiamine. Magnesium 2.3, phosphorus 3.4, normal. PRN ativan IV per CIWA and for recurrent seizure activity. Case management consulted for discharge planning. Clinically improving with resolving withdrawal symptoms. 2. Anxiety and depression/PTSD: We will continue patient home sertraline, BuSpar regimen and utilize higher dose trazodone regimen nightly while admitted. 3. Polysubstance Abuse, IVDA Hx, History of Hepatitis C, Chronic: Patient does report hepatitis C history and was treated. Patient denies any IV drug use x 12 years. Given that he is still using drugs although he reports snorting methamphetamine to be cautious obtained hepatitis for coinfection, HIV and syphilis as poor decisions are made during drug use and intoxication with noted preliminarily reactive hepatitis C antibody otherwise syphilis nonreactive, hepatitis B and HIV also nonreactive. 4. Obesity: Weight loss and lifestyle changes encouraged. 5. DVT prophylaxis: Low risk for type of admission. Charges/Coding Visit Charges Inpatient E&M: 17364 Subs Hosp L2
[2023-08-21 07:28] VITALS: O2SAT 99
[2023-08-21 10:00] VITALS: BP 125/74; PULSE 64; RESP 14; TEMP 36.7; O2SAT 99
[2023-08-21] MEDS: Multivitamins,Ther W-Minerals Tablet 1 TABLET PO (11:20)
[2023-08-21] MEDS: Thiamine Hydrochloride 100 MG Tablet PO (11:21)
[2023-08-21] MEDS: Folic Acid 1 MG Tablet PO (11:21)
[2023-08-21 14:00] VITALS: BP 132/93; PULSE 71; RESP 14; TEMP 36.5; O2SAT 98
[2023-08-21 18:00] VITALS: BP 137/89; PULSE 63; RESP 14; TEMP 36.6; O2SAT 98
[2023-08-21 20:46] VITALS: BP 124/94; PULSE 73; RESP 18; TEMP 36.8; O2SAT 97
[2023-08-21] MEDS: traZODone 100 MG Tablet PO (22:47)
[2023-08-21] MEDS: Senna Tablet 2 TABLET PO (22:47)
[2023-08-21] MEDS: hydrOXYzine PAM 25 MG Capsule 50 MG PO (22:49)
[2023-08-22 03:49] VITALS: BP 134/85; PULSE 63; RESP 16; TEMP 36.4; O2SAT 97
[2023-08-22] MEDS: Phenobarbital 32.4 MG Tablet 64.7999999999999972 MG PO ×5 (03:52→20:34)
--- NOTE | 2023-08-22 06:10 | PCM.PN.HOSP ---
Reason for Visit Reason for Visit: Diagnoses Alcohol use, unspecified with withdrawal, unspecified (08/20/23) Unspecified convulsions (08/20/23) Subjective Subjective Patient with no acute events overnight per self and per nursing report. Patient is more fatigued this morning but notes that his withdrawal symptoms still remain resolved. He is eager to continue treatment and would like to complete the full length of appropriate therapy to assure he does not have any seizures again upon return to senior care. Patient denies fevers, chills, nausea, emesis, abdominal pain, chest pain or dyspnea. Objective Data Objective Data Vital Signs: Vital Signs Temp Pulse Resp BP Pulse Ox O2 Del Method 97.5 F L 63 16 134/85 H 97 Room Air 08/22/23 03:49 08/22/23 03:49 08/22/23 03:49 08/22/23 03:49 08/22/23 03:49 08/22/23 03:49 Oxygen Delivery Method Room Air Weight: 225 lb 15.581 oz Body Mass Index (BMI) 34.3 Intake & Output: Intake and Output for Last 24 Hours 08/20/23 08/21/23 08/22/23 23:59 23:59 23:59 Intake Total 3000 / 3400 700 / 1200 1000 / 1000 Balance 3000 / 3400 700 / 1200 1000 / 1000 Lab / Micro Data 08/20/23 09:38 08/20/23 09:38 Physical Exam Narrative Physical Examination: General: Awake, alert, oriented x 3 and cooperative, laying in the MS bed, fatigued, just waking up. Skin: Normal color, normal turgor, no icterus, no cyanosis except for occasional staged ecchymoses, abrasion. HEENT: AT/NC, EOMI, PERRLA, MMM. Lungs: CTA bilaterally, moderate effort, mild decrease BL bases, no rales, ronchi or wheezing. Heart: Regular rate and rhythm; no gallop, rub audible. Abdomen: Soft, NTTP, ND, normal BS. Extremities: No cyanosis, clubbing, or edema. Neurological: Patient awake, alert, oriented as noted, cognitive function intact; pupils equally reactive to light and accommodation, cranial nerves grossly normal, moving all 4 extremities, currently no evidence of any withdrawal symptoms. Psychiatric: Affect appears fatigued, just waking up, no acute evidence of depressive or anxiety feelings but does have underlying history. Assessment & Plan Assessment/Plan (1) Alcohol withdrawal: (2) Alcohol withdrawal seizure: PLAN: Plan The patient is a 48 y/o M w/ PMHx: Anxiety and Depression/PTSD, Hx Hepatitis, EtOH abuse (Everclear 3 pints daily, at least a 30 pack of beer if no Everclear), Polysubstance abuse (Hx prior IVDA with heroin/fentanyl and prior cocaine which he has not used x 12 years but still ongoing use of snorted methamphetamine and cannabis smoked) who presents to the [facility] as a direct admission from outside facility on 08/20/2023 presenting to ED at outside facility secondary to history of withdrawal alcohol seizure while in senior care with noted episodes of nausea, tremors, agitation, tactile disturbances and eventually reported seizure. 1. New-Onset seizure secondary to EtOH withdrawal: Seizure activity with EtOH withdrawal. CT head w/ no acute findings at outside facility. Lab workup as noted in HPI but no report given regarding alcohol level or UDS of note. Admitted to medical surgical floor given stabilization at outside facility with no further seizure activity, initially maintain on telemetry given seizure concerns on precautions, will de-escalate given stability. Will maintained on CIWA and will continue phenobarbital taper regimen, maintain on MVI, folic acid, thiamine. Magnesium 2.3, phosphorus 3.4, normal. PRN ativan IV per CIWA and for recurrent seizure activity. Case management consulted for discharge planning. 08/22/2023 well-appearing, no obvious evidence of withdrawal symptoms, eager to continue withdrawal treatment to the full course as he is concerned about possibly seizing again in senior care. 2. Anxiety and depression/PTSD: We will continue patient home sertraline, BuSpar regimen and utilize higher dose trazodone regimen nightly while admitted. 3. Polysubstance Abuse, IVDA Hx, History of Hepatitis C, Chronic: Patient does report hepatitis C history and was treated. Patient denies any IV drug use x 12 years. Given that he is still using drugs although he reports snorting methamphetamine to be cautious obtained hepatitis for coinfection, HIV and syphilis as poor decisions are made during drug use and intoxication with noted preliminarily reactive hepatitis C antibody otherwise syphilis nonreactive, hepatitis B and HIV also nonreactive. 4. Obesity: Weight loss and lifestyle changes encouraged. 5. DVT prophylaxis: Low risk for type of admission. Charges/Coding Visit Charges Inpatient E&M: 36390 Subs Hosp L2
[2023-08-22] MEDS: Multivitamins,Ther W-Minerals Tablet 1 TABLET PO (08:58)
[2023-08-22] MEDS: Folic Acid 1 MG Tablet PO (08:58)
[2023-08-22] MEDS: Thiamine Hydrochloride 100 MG Tablet PO (08:58)
[2023-08-22 10:00] VITALS: BP 136/87; PULSE 60; RESP 18; TEMP 36.6; O2SAT 99
[2023-08-22 16:00] VITALS: BP 135/80; PULSE 68; RESP 18; TEMP 36.6; O2SAT 98
[2023-08-22] MEDS: Senna Tablet 2 TABLET PO (19:16)
[2023-08-22 20:22] VITALS: BP 136/98; PULSE 76; RESP 18; TEMP 36.7; O2SAT 97
[2023-08-22] MEDS: traZODone 100 MG Tablet PO (20:39)
[2023-08-22] MEDS: hydrOXYzine PAM 25 MG Capsule 50 MG PO (20:40)
[2023-08-22] MEDS: Polyethylene Glycol 3350 17 GM PACKET PO (23:26)
[2023-08-23] MEDS: Phenobarbital 32.4 MG Tablet 64.7999999999999972 MG PO ×2 (03:28→08:55)
[2023-08-23 03:31] VITALS: BP 132/90; PULSE 75; RESP 18; TEMP 36.7; O2SAT 96
--- NOTE | 2023-08-23 08:42 | PN.HOSP_ITS ---
Reason for Visit Reason for Visit: Diagnoses Alcohol use, unspecified with withdrawal, unspecified (08/20/23) Unspecified convulsions (08/20/23) Subjective Subjective No events overnight. Objective Data Objective Data Vital Signs: Vital Signs Temp Pulse Resp BP Pulse Ox O2 Del Method 36.7 C 75 18 132/90 H 96 Room Air 08/23/23 03:31 08/23/23 03:31 08/23/23 03:31 08/23/23 03:31 08/23/23 03:31 08/23/23 03:31 Oxygen Delivery Method Room Air Weight: 102.5 kg Body Mass Index (BMI) 34.3 Intake & Output: Intake and Output for Last 24 Hours 08/21/23 08/22/23 08/23/23 23:59 23:59 23:59 Intake Total 700 / 1200 1999 Balance 700 / 1200 1999 Lab / Micro Data 08/20/23 09:38 08/20/23 09:38 Physical Exam Const alert and no apparent distress Constitutional Narrative: sleeping. easily awoke. Assessment & Plan Assessment/Plan (1) Alcohol withdrawal: (2) Alcohol withdrawal seizure: PLAN: Plan New-Onset seizure * secondary to EtOH withdrawal while patient was in shelter. * CT head w/ no acute findings at outside facility. Acute alcohol withdrawal * On phenobarbital taper * Patient drinks large quantities of alcohol with 3 pints of Everclear per day or 30 beers per day. Recommended that patient stop completely. Patient involuntarily stopped as he was in shelter which led to the alcohol withdrawal seizure. Advised patient follow-up with alcohol sobriety services when he is able either in shelter or after he is released. * Continue the multivitamin daily Chronic conditions * Anxiety and depression/PTSD: We will continue patient home sertraline, BuSpar regimen and utilize higher dose trazodone regimen nightly while admitted. * Polysubstance Abuse, IVDA Hx, History of Hepatitis C, Chronic: Patient does report hepatitis C history and was treated. Patient denies any IV drug use x 12 years. Given that he is still using drugs although he reports snorting methamphetamine to be cautious obtained hepatitis for coinfection, HIV and syphilis as poor decisions are made during drug use and intoxication with n oted preliminarily reactive hepatitis C antibody otherwise syphilis nonreactive, hepatitis B and HIV also nonreactive. * Obesity: Weight loss and lifestyle changes encouraged. DVT prophylaxis: Low risk for type of admission.
[2023-08-23 08:44] VITALS: BP 137/96; PULSE 80; RESP 18; TEMP 36.6; O2SAT 98
[2023-08-23] MEDS: Thiamine Hydrochloride 100 MG Tablet PO (08:51)
[2023-08-23] MEDS: Multivitamins,Ther W-Minerals Tablet 1 TABLET PO (08:51)
[2023-08-23] MEDS: Folic Acid 1 MG Tablet PO (08:51)
[2023-08-23] MEDS: Polyethylene Glycol 3350 17 GM PACKET PO (08:51)
--- NOTE | 2023-08-23 09:50 | ADDICTION ---
clinician met with client to further discuss tx options. client was open and cooperative; decreased depressive sx's from last meeting (see previous note). client continues to verbalize a need to remain sober and seek additional AoD tx upon detox discharge. clinician discussed tx options; residential options and IOP. client is unsure of plans upon long term discharge. clinician will continue to discuss tx options.
--- NOTE | 2023-08-23 11:14 | DS.PCM_ITS ---
Providers Date of Admission: 08/20/23 Primary Care Physician: Dr. Yusuf Chavez MD Reason For Visit: ALCOHOL DETOX Diagnosis Discharge Diagnosis (1) Alcohol withdrawal: Status: Acute Code(s): F10.939 - Alcohol use, unspecified with withdrawal, unspecified (2) Alcohol withdrawal seizure: Status: Acute Code(s): F10.939 - Alcohol use, unspecified with withdrawal, unspecified; R56.9 - Unspecified convulsions Plan New-Onset seizure * secondary to EtOH withdrawal while patient was in retirement. * CT head w/ no acute findings at outside facility. Acute alcohol withdrawal * On phenobarbital taper * Patient drinks large quantities of alcohol with 3 pints of Everclear per day or 30 beers per day. Recommended that patient stop completely. Patient involuntarily stopped as he was in retirement which led to the alcohol withdrawal seizure. Advised patient follow-up with alcohol sobriety services when he is able either in retirement or after he is released. * Continue the multivitamin daily Chronic conditions * Anxiety and depression/PTSD: We will continue patient home sertraline, BuSpar regimen and utilize higher dose trazodone regimen nightly while admitted. * Polysubstance Abuse, IVDA Hx, History of Hepatitis C, Chronic: Patient does report hepatitis C history and was treated. Patient denies any IV drug use x 12 years. Given that he is still using drugs although he reports snorting methamphetamine to be cautious obtained hepatitis for coinfection, HIV and syphilis as poor decisions are made during drug use and intoxication with noted preliminarily reactive hepatitis C antibody otherwise syphilis nonreactive, hepatitis B and HIV also nonreactive. * Obesity: Weight loss and lifestyle changes encouraged. DVT prophylaxis: Low risk for type of admission. Medications at Discharge Home Medications tadalafil 10 mg tablet (Cialis) 10 mg PO DAILY PRN sexual activity 06/09/23 buspirone 5 mg tablet 10 mg PO BID 08/20/23 sertraline 50 mg tablet 50 mg PO QHS 08/20/23 trazodone 50 mg tablet 50 mg PO QHS 08/20/23 multivitamin 1 tab PO DAILY #30 tabs 08/23/23 Hospital Course Operations None Procedures None Summary of Care Provided Minutes Spent on Discharge: 31 Weight / BMI Weight Weight: 102.5 kg Body Mass Index (BMI) 34.3 ABG / Lab / Microbiology Data 08/20/23 09:38 08/20/23 09:38 D/C Instructions Discharge Diet: No restrictions Meaningful Use Info Meaningful Use Diagnoses (Choose all that apply): None applicable Discharge Plan Admission Admit Date/Time: 08/20/23 06:42 Primary Reason for Your Visit: Alcohol withdrawal seizure Attending Provider: Nick Hartmann Primary Care Provider: Yusuf Chavez Consulting Providers: Abhishek Cox; Nemo Leon Instructions Additional Instructions / Restrictions: Alcohol withdrawal seizure. He drinks very large quantities of alcohol and you will yourself further disservice by continuing to drink. It is highly advised that you follow-up with some form of addiction services either through [facility] or through alcoholic Anonymous to help maintain your sobriety. Discharge Orders/Prescriptions Prescriptions: New multivitamin Tablet 1 tab PO DAILY Qty: 30 0RF Continued tadalafil [Cialis] 10 mg tablet 10 mg PO DAILY PRN (Reason: sexual activity) Rx Instructions: administer approximately 30min before sexual activity; do not use more than 1 dose per 24hrs buspirone 5 mg tablet 10 mg PO BID trazodone 50 mg tablet 50 mg PO QHS sertraline 50 mg tablet 50 mg PO QHS Discontinued oxycodone 5 mg Tablet 5 - 10 mg PO Q4H PRN PRN (Reason: Pain Score 4-10/10) 5 Days Qty: 15 0RF Hold Instructions: Order Completed Referrals / Follow Up: Yusuf Chavez MD [Primary Care Provider] - Within 1 Month Disposition Disposition (needs filled in before D/C Order can be placed): Home, Self Care Charges/Coding Visit Charges Inpatient E&M: 44581 Disch Hosp >30min
--- NOTE | 2023-08-23 12:04 | PHA.DC.MR.R ---
Pharmacy [facility] has performed discharge medication reconciliation for this patient. The patient's discharge medication list was reviewed for discrepancies and discrepancies were resolved. Medications at Discharge Home Medications tadalafil 10 mg tablet (Cialis) 10 mg PO DAILY PRN sexual activity 06/09/23 buspirone 5 mg tablet 10 mg PO BID 08/20/23 sertraline 50 mg tablet 50 mg PO QHS 08/20/23 trazodone 50 mg tablet 50 mg PO QHS 08/20/23 multivitamin 1 tab PO DAILY #30 tabs 08/23/23
== END 2023-08-23 12:32 | DRG 897 ==
PROVIDERS: Family Medicine; Admitting Provider Internal Medicine; PCP Family Medicine; Referring Provider Internal Medicine
DX: F10.230 Alcohol dependence with withdrawal, uncomplicated (principal); G40.89 Other seizures; E66.9 Obesity, unspecified; F15.10 Other stimulant abuse, uncomplicated; F32.A Depression, unspecified; F41.9 Anxiety disorder, unspecified; F43.10 Post-traumatic stress disorder, unspecified; Z68.34 Body mass index [BMI] 34.0-34.9, adult; Z79.899 Other long term (current) drug therapy; Z86.19 Personal history of other infectious and parasitic diseases
CPT/HCPCS: 36415; 80053; 83735; 84100; 85025; 86703; 86706; 86780; 86803; 87340; J7120